=== PATIENT | male | born 1950 | race Caucasian/White ===

== ENCOUNTER 2020-04-30 10:35 | Emergency (ER) | payer MEDICARE, SELFPAY ==
--- NOTE | ~2020-04-30 | CT_ITS ---
EXAMINATION: CT brain wo con DATE: 04/30/2020 11:14 INDICATION: Status post fall TECHNIQUE: Computed tomography (CT) of the head was performed without intravenous contrast. The dose- length product was 681.00 mGy-cm. Automated exposure control and iterative reconstruction technique w ere employed. COMPARISON: CT dated 08/23/2018 FINDINGS: Generalized atrophy. There are scattered mild periventricular and subcortical white matter changes, most likely related to small vessel ischemic disease (microangiopathy). No acute intracrania l hemorrhage, infarction, mass or mass effect. No ventriculomegaly or midline shift. There is intracr anial atherosclerosis. Paranasal sinuses and mastoids are pneumatized. No depressed skull fractures. IMPRESSION: 1. No acute intracranial abnormality. Reviewed, dictated and finalized at location B.
--- NOTE | ~2020-04-30 | CT_ITS ---
EXAMINATION: CT cervical spine wo con EXAM DATE: 04/30/2020 11:15 INDICATION: Head injury. TECHNIQUE: Spiral CT of the cervical spine was performed without contrast. Axial images were reviewe d. Coronal and sagittal reformatted images were also reviewed. The dose-length product (DLP) for thi s examination was 681.00 mGy-cm. The exposure was tailored according to patient size (auto mA exposu re control), and iterative reconstruction (ASIR) was used as additional dose reduction technique. Th ere is no prior study for comparison. This small bouts of L3 FINDINGS: There is no evidence of acute cervical fracture. The odontoid process is intact. Pre-dens space is normal. Prevertebral soft tissue is normal. There are no soft tissue abnormalities identi fied. There is no disc space widening or traumatic vertebral body subluxation suspected. There is m oderate to severe bilateral neural foraminal stenosis at C6-7, the most narrowed level. Overall moder ate cervical spondylosis. Left thyroid nodule likely taking up most of the volume of this lobe, measu ring about 3 cm. A detailed level by level evaluation of spondylosis can be added as addendum if requ ested. IMPRESSION: 1. No acute cervical fracture. 2. Cervical spondylosis most advanced at C6-7. 3. Incidental left thyroid lobe nodule; consider nonemergent ultrasound for risk stratification. Reviewed, dictated and finalized at location A. IMPRESSION: 1. No acute cervical fracture. 2. Cervical spondylosis most advanced at C6-7. 3. Incidental left thyroid lobe nodule; consider nonemergent ultrasound for ri sk stratification.
[2020-04-30 10:36] VITALS: BP 148/75; PULSE 76; RESP 17; TEMP 36.7; O2SAT 100
--- NOTE | 2020-04-30 10:37 | ED.HEATRA ---
HPI - Head Injury General Chief complaint: Head Injury Stated complaint: FALL Time Seen by Provider: 04/30/20 10:37 History of Present Illness HPI Narrative: He went to get something out of the refrigerator this morning and he fell out of his wheelchair. He does not believe that he passed out. He struck his head on the ground. He has some pain in the right side of the neck. He reports multiple recent falls. Related Data Allergies Allergy/AdvReac Type Severity Reaction Status Date / Time aspirin Allergy Unknown Verified 09/09/10 13:23 Influenza Virus Vaccines Allergy Unknown Verified 07/14/15 16:46 latex Allergy Unknown Verified 07/14/15 16:46 monosodium glutamate Allergy Unknown Verified 07/14/15 16:46 ALLERGY INJECTIONS Allergy Mild ANAPHALIXIS Uncoded 04/13/09 11:20 Grass Allergy Unknown Uncoded 08/23/18 16:28 Review of Systems Review of Systems: All systems reviewed & are unremarkable except as noted in HPI and below Constitutional: Constitutional: Denies fever(s) and Denies weakness Cardiovascular: Cardiovascular: Denies chest pain Respiratory: Respiratory: Denies dyspnea Gastrointestinal: Gastrointestinal: Denies abdominal pain, Denies nausea and Denies vomiting Neurologic: Denies headache(s) and Denies weakness PMFSH Family History Family History Father Acute myocardial infarction Social History Social History Smoking status: Former smoker Alcohol intake: current Exam Const: General: no acute distress, alert and ill appearing chronically Orientation/consciousness: patient oriented x3 HENMT: Other: abrasion to right scalp Eyes: Pupils: Equal, round and reactive pupils present EOM: EOMs intact bilaterally Neck: Neck: normal visual inspection Chest: Chest palpation & inspection: normal inspection of the chest and no tenderness Resp: Effort & Inspection: normal respiratory effort Auscultation: clear to auscultation bilaterally Cardio: Rate: regular rate Rhythm: regular rhythm GI: GI Palp: Yes Soft to palpation and No Tenderness to palpation present (GI) Skin: General skin exam: pallor Neuro: General: patient oriented x3 and moves all extremities Cranial nerves: Yes CN's II-XII intact bilaterally Speech: normal speech Extrem: General: normal to inspection Course Vital Signs Vital signs: Vital Signs Temperature 36.7 C 04/30/20 10:36 Pulse Rate 76 04/30/20 10:36 Respiratory Rate 17 04/30/20 10:36 Blood Pressure 148/75 H 04/30/20 10:36 Pulse Oximetry 100 04/30/20 10:36 Temperature 36.7 C 04/30/20 10:36 Pulse Rate 72 04/30/20 17:01 Respiratory Rate 18 04/30/20 17:01 Blood Pressure 167/90 H 04/30/20 17:01 Pulse Oximetry 97 04/30/20 17:01 MDM - Head Injury MDM Narrative Medical decision making narrative: Imaging negative. Glucose 460. He reports that this is normal for him. He used to take insulin, but does not take it any more. Medical Records Attestation: I reviewed the patient's medical records. Lab Data Attestation: I reviewed the patient's lab results. Result diagrams: 04/30/20 11:27 04/30/20 11:27 Labs: Lab Results 04/30/20 04/30/20 04/30/20 Range/Units 11:27 11:27 11:36 WBC 8.4 (4.5-10.0) K/mm3 RBC 5.31 (4.6-6.20) M/mm3 Hgb 13.9 L (14.0-18.0) g/dL Hct 43.4 (42.0-52.0) % MCV 81.7 (80-100) fl MCH 26.2 (26-34) pg MCHC 32.0 (32-36) g/dl RDW 13.6 (11.5-14.5) % Plt Count 148 L (150-375) k/mm3 MPV 11.5 H (7.4-10.4) fl Immature Gran % (Auto) 0.5 (0-0.5) % Neut % (Auto) 75.8 H (45.5-73.1) % Lymph % (Auto) 12.6 L (18.3-44.2) % [place] % (Auto) 7.8 (2.6-8.5) % Eos % (Auto) 2.7 (0-4.4) % Baso % (Auto) 0.6 (0.2-1.2) % Lymph # (Auto) 1.06 (0.9-3.2) K/mm3 [place] # (Auto) 0.7 H (0.1-0.6) K/mm3 Eos # (Auto) 0.2
--- NOTE | 2020-04-30 10:51 | ECG_ITS ---
Measurements Intervals [place] Rate: 82 P: 61 CA: 180 QRS: -39 QRSD: 125 T: 32 QT: 355 QTc: 417 Interpretive Statements SINUS RHYTHM LEFT AXIS DEVIATION INTRAVENTRICULAR CONDUCTION DELAY CANNOT RULE OUT SEPTAL INFARCT, AGE INDETERMINATE BORDERLINE ST-T WAVE ABNORMALITY- INF/LAT LEADS BASELINE ARTIFACT- V6 ABNORMAL ECG Electronically Signed On 04-30-2020 12:08:27 CDT by nOur Toussaint D.O.
[2020-04-30 11:36] LABS: Basophils Absolute Auto 0.1 K/mm3 (0.0-0.1); Basophils Percent Auto 0.6 % (0.2-1.2); Eosinophils Absolute Auto 0.2 K/mm3 (0-0.3); Eosinophils Percent Auto 2.7 % (0-4.4); Hematocrit 43.4 % (42.0-52.0); Hemoglobin 13.9 g/dL (14.0-18.0); Immature Granulocyte Absolute 0.04 K/mm3 (0.00-0.031); Immature Granulocyte Percent A 0.5 % (0-0.5); Lymphocytes Absolute Auto 1.06 K/mm3 (0.9-3.2); Lymphocytes Percent Auto 12.6 % (18.3-44.2); Mean Corpuscular Hemoglobin 26.2 pg (26-34); Mean Corpuscular Volume 81.7 fl (80-100); Mean Platelet Volume 11.5 fl (7.4-10.4); Monocytes Absolute Auto 0.7 K/mm3 (0.1-0.6); Monocytes Percent Auto 7.8 % (2.6-8.5); Neutrophils Absolute Auto 6.4 K/mm3 (1.3-6.7); Neutrophils Percent Auto 75.8 % (45.5-73.1); Platelet Count Result 148 k/mm3 (150-375); Red Blood Count 5.31 M/mm3 (4.6-6.20); Red Cell Distribution Width 13.6 % (11.5-14.5); White Blood Count 8.4 K/mm3 (4.5-10.0)
[2020-04-30 11:40] VITALS: BP 151/76; PULSE 77; RESP 22; O2SAT 99
[2020-04-30 11:47] LABS: Alanine Aminotransferase 17 U/L (4-50); Albumin Level 4.2 g/dL (3.5-5.1); Alkaline Phosphatase 107 U/L (38-126); Anion Gap 12 mmol/L (8-16); Aspartate Amino Transferase 16 U/L (17-59); Bilirubin,Total 0.3 mg/dL (0.2-1.3); Blood Urea Nitrogen 10 mg/dL (9-20); Carbon Dioxide 27 mmol/L (22-30); Chloride 93 mmol/L (98-107); Estimated CRCL calculation 91 ml/min; Estimated Glomerular Filt Rate > 60; Glucose 460 mg/dL (75-110); Magnesium 1.5 mg/dL (1.6-2.3); Potassium 4.5 mmol/L (3.4-5.0); Sodium 132 mmol/L (137-145)
[2020-04-30 11:55] LABS: Add Urine Microscopic? YES; Appearance Urine Clear (Clear); Bilirubin Urine Negative (Negative); Blood Urine Negative (Negative); Color Urine Straw (Yellow); Glucose Urine UA 3+ mg/dL (Negative); Ketones Urine Negative (Negative); Leukocyte Esterase Ur 1+ LEU/UL (Negative); Nitrate Urine Negative (Negative); Protein Urine Negative (Negative); RBC Urine 0-2 /hpf (0-2); Specific Grav Ur 1.028 (1.001-1.035); Urobilinogen Urine Negative mg/dL (<2.0); WBC Urine 51-75 /hpf
[2020-04-30 12:20] VITALS: BP 138/79; PULSE 78; RESP 30; O2SAT 93
[2020-04-30] MEDS: SODIUM CHLORIDE 0.9% IV 1,000 ML 999 ML IV CONT (12:21)
[2020-04-30] MEDS: MAGNESIUM SULF 2 GM/WATER 50ML 2 GM/50 ML BAG IVPB (12:43)
[2020-04-30 13:27] VITALS: BP 137/71; PULSE 76; RESP 24; O2SAT 95
[2020-04-30 14:25] LABS: Glucose Point of Care 400 (65-105)
[2020-04-30 15:14] VITALS: BP 150/89; PULSE 75; RESP 20; O2SAT 98
--- NOTE | 2020-04-30 16:31 | PC.NURSE ---
Report called to Cori Moser RN. Patient waiting for transport at this time.
[2020-04-30 17:01] VITALS: BP 167/90; PULSE 72; RESP 18; O2SAT 97
== END 2020-04-30 17:07 ==
PROVIDERS: Emergency Provider Emergency Medicine; PCP Internal Medicine
DX: E11.65 Type 2 diabetes mellitus with hyperglycemia (principal); S09.90XA Unspecified injury of head, initial encounter; W05.0XXA Fall from non-moving wheelchair, initial encounter; N39.0 Urinary tract infection, site not specified; R94.31 Abnormal electrocardiogram [ECG] [EKG]; Z87.891 Personal history of nicotine dependence
CPT/HCPCS: 36415; 70450; 72125; 80053; 81001; 82948; 83735; 85025; 87077; 87086; 87088; 87186; 93005; 96365; 96367; 99284; J0696; J3475; J7030

== ENCOUNTER 2021-05-16 06:18 | Emergency (ER) | payer SELFPAY ==
--- NOTE | ~2021-05-16 | CT_ITS ---
EXAMINATION: CT abdomen pelvis w con DATE: 05/16/2021 08:49 INDICATION: Abdominal pain TECHNIQUE: Computed tomography (CT) of the abdomen and pelvis was performed with 100 cc Omnipaque 350 intravenous contrast. The dose-length product was 1265.36 mGy-cm. Automated exposure control and ite rative reconstruction technique were employed. COMPARISON: None. FINDINGS: Lung bases are unremarkable. Heart size normal. No significant pleural or pericardial effus ion. Mild thickening of the left colon, suspicious for colitis. No obstruction. The liver, spleen, pancreas, adrenal glands are unremarkable. There are bilateral renal cysts, larges t in the right kidney measuring 5 cm. Gallbladder is present. No free air or free fluid. There are castellanos rgical changes in the right mid abdomen consistent with bowel resection. No acute osseous abnormality . IMPRESSION: 1. Mild thickening of the left colon, suspicious for colitis. No obstruction. Reviewed, dictated and finalized at location A.
[2021-05-16 06:19] VITALS: PULSE 71; RESP 18; TEMP 36.7; O2SAT 97
--- NOTE | 2021-05-16 06:27 | PC.NURSE ---
Patient states he did also have a sz approx 4 hours ago, has history of them.
[2021-05-16 06:54] LABS: Basophils Absolute Auto 0.1 K/mm3 (0.0-0.1); Basophils Percent Auto 0.7 % (0.2-1.2); Eosinophils Absolute Auto 0.1 K/mm3 (0-0.3); Eosinophils Percent Auto 1.2 % (0-4.4); Hematocrit 44.5 % (42.0-52.0); Hemoglobin 14.6 g/dL (14.0-18.0); Immature Granulocyte Absolute 0.03 K/mm3 (0.00-0.031); Immature Granulocyte Percent A 0.4 % (0-0.5); Lymphocytes Absolute Auto 1.06 K/mm3 (0.9-3.2); Lymphocytes Percent Auto 12.6 % (18.3-44.2); Mean Corpuscular HGB Conc 32.8 g/dl (32-36); Mean Corpuscular Hemoglobin 26.3 pg (26-34); Mean Corpuscular Volume 80.2 fl (80-100); Mean Platelet Volume 10.3 fl (7.4-10.4); Monocytes Absolute Auto 0.6 K/mm3 (0.1-0.6); Neutrophils Absolute Auto 6.6 K/mm3 (1.3-6.7); Neutrophils Percent Auto 78.1 % (45.5-73.1); Platelet Count Result 146 k/mm3 (150-375); Red Blood Count 5.55 M/mm3 (4.6-6.20); White Blood Count 8.4 K/mm3 (4.5-10.0)
[2021-05-16 07:00] VITALS: BP 164/82; PULSE 80; RESP 16; O2SAT 98
[2021-05-16 07:04] LABS: Alanine Aminotransferase 19 U/L (4-50); Albumin Level 4.6 g/dL (3.5-5.1); Alkaline Phosphatase 98 U/L (38-126); Anion Gap 8 mmol/L (8-16); Aspartate Amino Transferase 19 U/L (17-59); Bilirubin,Total 0.5 mg/dL (0.2-1.3); Blood Urea Nitrogen 7 mg/dL (9-20); Calcium 9.3 mg/dL (8.4-10.2); Carbon Dioxide 27 mmol/L (22-30); Chloride 104 mmol/L (98-107); Estimated CRCL calculation 100 ml/min; Estimated Glomerular Filt Rate > 60; Glucose 310 mg/dL (65-110); Lipase 170 U/L (23-300); Potassium 4.1 mmol/L (3.4-5.0); Sodium 139 mmol/L (137-145)
[2021-05-16 07:06] LABS: Add Urine Microscopic? YES; Appearance Urine Clear (Clear); Bilirubin Urine Negative (Negative); Blood Urine Negative (Negative); Color Urine Yellow (Yellow); Glucose Urine UA 3+ mg/dL (Negative); Ketones Urine 1+ mg/dL (Negative); Leukocyte Esterase Ur Negative LEU/UL (Negative); Nitrate Urine Negative (Negative); Protein Urine 1+ mg/dL (Negative); RBC Urine 0-2 /hpf (0-2); Specific Grav Ur 1.013 (1.001-1.035); Urobilinogen Urine Negative mg/dL (<2.0)
--- NOTE | 2021-05-16 07:51 | ED.GENADULT ---
HPI - General Adult General Chief complaint: Abdominal Pain Stated complaint: sick case/ not taking meds/ abd pain Time Seen by Provider: 05/16/21 07:03 Source: patient History of Present Illness HPI narrative: Patient is a 71 y/o male complaining of generalized abdominal pain and vomiting. He states that this started 3 days ago. He describes his pain as aching and rates it as 7/10. There is no pain radiation. He states that the his nurse practitioner would not refill his Xanax and he has been off Xanax for 3 days. He also wants other medications including seizure medication, BP medications refilled. Related Data Home Medications Medication Instructions Recorded Confirmed Flonase 05/16/21 Imodium 05/16/21 albuterol sulfate INHALATION 05/16/21 alprazolam 05/16/21 atorvastatin 05/16/21 clopidogrel 05/16/21 desoximetasone applic TOPICAL 05/16/21 docusate sodium PO 05/16/21 duloxetine mg 05/16/21 duloxetine [Cymbalta] mg PO 05/16/21 esomeprazole magnesium mg 05/16/21 gabapentin 05/16/21 levetiracetam PO 05/16/21 metoprolol succinate PO 05/16/21 quetiapine 05/16/21 sitagliptin-metformin [Janumet] tablet 05/16/21 tamsulosin mg PO 05/16/21 tramadol mg 05/16/21 Allergies Allergy/AdvReac Type Severity Reaction Status Date / Time No Known Allergies Allergy Verified 05/16/21 06:26 Review of Systems Constitutional: Constitutional: Denies chills, Denies fever(s), Denies headache(s) and Denies weakness Eyes: Eyes: Denies blurry vision ENT: Denies headache(s) and Denies neck pain Cardiovascular: Cardiovascular: Denies chest pain and Denies dyspnea Respiratory: Respiratory: Denies cough and Denies dyspnea Gastrointestinal: Gastrointestinal: Reports abdominal pain, Denies diarrhea, Reports nausea and Reports vomiting Genitourinary: Genitourinary: Denies hematuria and Denies dysuria Musculoskeletal: Musculoskeletal: Denies back pain and Denies neck pain Neurologic: Denies headache(s) and Denies weakness Exam Const: General: no acute distress and well developed Orientation/consciousness: oriented to person, oriented to place, oriented to time and patient oriented x3 HENMT: Head: normocephalic Ears: external ears normal General nose exam: Normal external nose present Eyes: General: appearance normal, both eyes and all related structures Conjunctivae: conjunctivae normal Neck: Neck: normal visual inspection and full ROM Chest: Chest palpation & inspection: normal inspection of the chest and no tenderness Resp: Effort & Inspection: normal respiratory effort Auscultation: clear to auscultation bilaterally Cardio: Rate: regular rate Rhythm: regular rhythm GI: GI Palp: No abdominal tenderness and Yes Soft to palpation Skin: General skin exam: normal color and turgor normal Neuro: General: oriented to person, oriented to place, oriented to time and patient oriented x3 Cognition (Neuro): normal cognition Extrem: General: normal to inspection, full ROM and no pedal edema Psych: Appearance: grossly normal Mental Status: mental status grossly normal Affect: normal affect Course Reevaluation(s) Reevaluation #1: Discussed with patient about lab and CT results. Informed patient that short course of refill will be given for most of his meds. However, Xanax will be not be refilled. Date: 05/16/21 Time: 10:15 Vital Signs Vital signs: Vital Signs Temperature 36.7 C 05/16/21 06:19 Pulse Rate 71 05/16/21 06:19 Respiratory Rate 18 05/16/21 06:19 Pulse Oximetry 97 05/16/21 06:19 Temperature 36.7 C 05/16/21 06:19 Pulse Rate 100 05/16/21 10:15 Respiratory Rate 20 05/16/21 10:15 Blood Pressure 145/90 H 05/16/21 10:15 Pulse Oximetry 97 05/16/21 10:15 Medical Decision Making Vital Signs Vital Signs: Vital Signs Temperature 36.7 C 05/16/21 06:19 Pulse Rate 71 05/16/21 06:19 Respiratory Rate 18 05/16/21 06:19 Pulse Oximetry 97 05/16/21 06:19
[2021-05-16 08:00] VITALS: BP 142/99; PULSE 93; RESP 16; O2SAT 98
[2021-05-16 09:30] VITALS: BP 146/97; PULSE 88; RESP 16; O2SAT 97
[2021-05-16 10:15] VITALS: BP 145/90; PULSE 100; RESP 20; O2SAT 97
[2021-05-16 10:40] VITALS: BP 140/72; PULSE 70; RESP 16; O2SAT 98
--- NOTE | 2021-05-16 10:56 | PC.NURSE ---
ATTEMPTED TO CALL [facility] TO TRY TO FACILITATE TRANSPORTATION FOR RIDE BACK TO FACILITY. NO ANSWER AND MAILBOX IS FULL. PT STATES HE HAS NO FAMILY AND NO FRIENDS TO PICK HIM UP TO GET HOME. I INFORMED THE PT THAT HE DOESN'T QUALIFY FOR A RIDE BY AMBULANCE BACK TO THE FACILITY AND HE STATES IT DOESN'T MATTER BECAUSE MY INSURANCE ALWAYS PAYS FOR IT.
== END 2021-05-16 12:20 ==
PROVIDERS: Emergency Medicine; Emergency Provider Emergency Medicine
DX: K52.9 Noninfective gastroenteritis and colitis, unspecified (principal); I10 Essential (primary) hypertension; Z79.84 Long term (current) use of oral hypoglycemic drugs; R56.9 Unspecified convulsions
CPT/HCPCS: 36415; 74177; 80053; 81001; 83690; 85025; 99284; Q9967

== ENCOUNTER 2021-05-24 09:14 | Outpatient (CLI) | payer MEDICARE, SELFPAY ==
[2021-05-24 09:47] LABS: Cholesterol 74 mg/dL (0-200); HDL Direct 31 mg/dL; Triglycerides 243 mg/dL (<150)
[2021-05-24 10:05] LABS: LDL Cholesterol Direct < 30 mg/dL
[2021-05-24 10:09] LABS: Hemoglobin A1C 10.5 % (<5.7)
== END 2021-05-24 09:15 | disposition home or self-care (01) ==
PROVIDERS: PCP Nurse Practitioner; Visit Provider Nurse Practitioner
DX: E11.9 Type 2 diabetes mellitus without complications (principal); E78.5 Hyperlipidemia, unspecified
CPT/HCPCS: 36415; 80061; 83036

== ENCOUNTER 2021-05-26 21:57 | Observation (INO) | payer MEDICARE, SELFPAY ==
--- NOTE | ~2021-05-26 | XR_ITS ---
EXAMINATION: XR chest 1V portable DATE: 05/26/2021 22:48 INDICATION: Cough and fever. TECHNIQUE: A single frontal view of the chest was obtained on 2 radiographs. COMPARISON: Chest 2 views 10/11/2018, CT abdomen and pelvis 05/16/21 FINDINGS: The chest demonstrates clear lungs without pneumonia, pleural effusion, or pneumothorax. Th e heart size is normal. IMPRESSION: 1. No acute cardiopulmonary disease. Reviewed, dictated and finalized at location A.
--- NOTE | ~2021-05-26 | CT_ITS ---
EXAMINATION: CT abdomen pelvis w con DATE: 05/27/2021 02:29 INDICATION: Abdominal pain TECHNIQUE: Computed tomography (CT) of the abdomen and pelvis was performed with 100 mL Omnipaque-350 intravenous contrast. Automated exposure control and iterative reconstruction technique were employe d. The dose-length product was 1620.10 mGy-cm. COMPARISON: 05/16/2021 FINDINGS: Minimal bibasilar dependent atelectasis. Heart size is normal. No pericardial or pleural effusion. Sm all sliding-type hiatal hernia. Liver, gallbladder, pancreas and bilateral adrenal glands are normal. Bilateral renal cysts, the largest measuring 5.2 cm the lower pole of the right kidney. Nonspecific mild splenomegaly measuring 14.4 cm maximal length. Likely prior appendectomy with suture line at the tip of the cecum. Moderate amount of stool scattered throughout the colon. Small bowel is normal wit h no obstruction. Mild prostatomegaly measuring 4.3 x 4.0 cm. Small bilateral fat-containing inguinal hernias. Tiny fat-containing umbilical hernia. No free intraperitoneal gas or fluid. No pathological ly enlarged abdominal or pelvic lymphadenopathy. 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 Mild to modera te scattered degenerative skeletal changes. Densely sclerotic bone islands at L1 and L5.. No other castellanos spicious lytic or blastic bone lesions. IMPRESSION: 1. No acute intra-abdominal/pelvic process. 2. Nonspecific mild splenomegaly. 3. Small sliding-type hiatal hernia. 4. 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 Reviewed, dictated and finalized at location A.
--- NOTE | ~2021-05-26 | CT_ITS ---
EXAMINATION: CT brain wo con DATE: 05/27/2021 02:28 INDICATION: Mental status changes TECHNIQUE: Computed tomography (CT) of the head was performed without intravenous contrast. The mA wa s adjusted according to patient size. Iterative reconstruction technique was employed. Exam dose: 60 5.33 mGy-cm total exam DLP. COMPARISON: 04/30/2020 CT brain FINDINGS: No intracranial mass lesion or hemorrhage or cerebrovascular accident. No midline shift or mass effect. Bilateral carotid siphon internal carotid artery calcifications. Nonspecific diminished attenuation of the cerebral white matter, likely due to chronic small vessel ischemic changes. There is mild/moderate cerebral and cerebellar volume loss. No subdural or epidural hematoma is detected. No fracture or bone destruction of the cranial vault. Included paranasal sinuses and mastoid air cell s are unremarkable. IMPRESSION: No acute intracranial abnormality Cerebral atherosclerosis and chronic small vessel ischemic changes of cerebral white matter Reviewed, dictated and finalized at Location A. Reviewed, dictated and finalized at location B.
[2021-05-26 22:06] VITALS: BP 120/73; PULSE 81; RESP 20; TEMP 36; O2SAT 97
[2021-05-26 22:07] VITALS: BP 120/73; PULSE 82; RESP 20; O2SAT 97
[2021-05-26 22:15] VITALS: BP 128/63; PULSE 81; RESP 17; O2SAT 96
--- NOTE | 2021-05-26 22:31 | ECG_ITS ---
Measurements Intervals [place] Rate: 80 P: 59 UT: 179 QRS: -39 QRSD: 139 T: 78 QT: 368 QTc: 424 Interpretive Statements SINUS RHYTHM LEFT AXIS DEVIATION INTRAVENTRICULAR CONDUCTION DELAY CANNOT RULE OUT SEPTAL INFARCT, AGE INDETERMINATE BORDERLINE ST-T WAVE ABNORMALITY- HIGH LATERAL LEADS BASELINE ARTIFACT- V1-V6 ABNORMAL ECG Electronically Signed On 05-27-2021 6:29:37 CDT by Onur Toussaint D.O.
[2021-05-26 23:01] VITALS: BP 136/75; PULSE 77; RESP 18; O2SAT 98
[2021-05-26 23:04] LABS: Alveolar/Arterial O2 Gradient 23.3 mmHg; Base Excess ABG -1.6 mEq/l (+/-2.0); Fractional Inspired Oxygen 21 %; HCO3 ABG 23.9 mEq/l (22.0-26.0); Oxygen Saturation ABG 94.5 % (95.0-100.0); Oxyhemoglobin 92.6 % THb (90.0-100.0); PCO2 ABG 43.2 mmHg (35.0-45.0); PO2 ABG 74.7 mmHg (80.0-100.0); PO2 FiO2 Ratio Arterial Blood 3.56 %; Total Hemoglobin 13.8 g/dL (12.0-18.0); pH ABG 7.361 (7.350-7.450)
[2021-05-26 23:06] LABS: Device ROOM AIR; Modified Allen's Test Pass; Site Drawn LEFT RADIAL
[2021-05-26 23:16] VITALS: BP 139/75; PULSE 74; RESP 21; O2SAT 97
--- NOTE | 2021-05-26 23:21 | ED.GENADULT ---
HPI - General Adult General Chief complaint: Altered Mental Status Stated complaint: POSSIBLE OVERDOSE - LOCAL RESIDENTIAL UNKNOWN MED Time Seen by Provider: 05/26/21 22:19 History of Present Illness HPI narrative: Patient 71-year-old gentleman who presents the emergency department with chief complaint of altered mental status. Patient was found at his assisted living facility confused and unable to answer questions there is a potential the patient may have gotten into his medications and take them either additional all tramadol or benzodiazepines. Patient was given Narcan by EMS prior to arrival and the patient is somewhat more awake now. Patient is able to answer some basic questions but history is limited due to the patient being drowsy. Related Data Home Medications Medication Instructions Recorded Confirmed Flonase 05/16/21 Imodium 05/16/21 desoximetasone applic TOPICAL 05/16/21 docusate sodium PO 05/16/21 tramadol mg 05/16/21 metronidazole 500 mg tablet 500 mg PO Q12H 05/19/21 05/19/21 Allergies Allergy/AdvReac Type Severity Reaction Status Date / Time aspirin Allergy Unknown Verified 05/24/21 09:14 Influenza Virus Vaccines Allergy Unknown Verified 05/24/21 09:14 latex Allergy Unknown Verified 05/24/21 09:14 monosodium glutamate Allergy Unknown Verified 05/24/21 09:14 ALLERGY INJECTIONS Allergy Mild ANAPHALIXIS Uncoded 05/24/21 09:14 Grass Allergy Unknown Uncoded 05/24/21 09:14 Review of Systems Review of Systems: A 10 system review of systems was completed on the patient and is negative except for what is stated in the HPI. Nursing and ancillary documentation was reviewed. [facility]LY [facility] Past Medical History Medical History Allergies Anxiety Arthritis Asthma Cancer Chest pain Colitis Coronary artery disease Diabetes Difficulty breathing Difficulty sleeping Dizziness Fainting spell GERD (gastroesophageal reflux disease) Head trauma Headache Heart attack Heart disease High blood sugar High cholesterol Hypertension IBS (irritable bowel syndrome) Leg pain Loss of consciousness Numbness Painful joint Rash Sadness Seizures Sexual dysfunction Swollen joint Urine abnormality Vomiting Weakness Family History Family History Father Acute myocardial infarction Social History Social History Smoking status: Former smoker Second hand tobacco smoke exposure: No Alcohol intake: current Drinks per week: 1 Substance use: never Substance use type: does not use Exam Narrative: GENERAL: Well-appearing, well-nourished, and in no acute distress. HEAD: Normocephalic, atraumatic. EYES: PERRLA and EOMI. ENT: Nares clear, no rhinorrhea or epistaxis. Mucous membranes moist. NECK: Supple. CHEST: Clear to auscultation. No respiratory distress. HEART: Regular rate and rhythm. No murmur heard. Normal peripheral pulses. ABDOMEN: Soft, nontender, nondistended, normal active bowel sounds. EXTREMITIES: Normal range of motion. No edema. SKIN: Warm, dry, no rash. NEURO: No focal deficits. Alert and oriented x3. Very sedated PSYCH: Normal mood and affect. Course Vital Signs Vital signs: Vital Signs Temperature 36.0 C L 05/26/21 22:06 Pulse Rate 81 05/26/21 22:06 Respiratory Rate 20 05/26/21 22:06 Blood Pressure 120/73 05/26/21 22:06 Pulse Oximetry 97 05/26/21 22:06 Temperature 36.0 C L 05/26/21 22:06 Pulse Rate 66 05/27/21 04:16 Respiratory Rate 16 05/27/21 04:16 Blood Pressure 149/78 H 05/27/21 04:16 Pulse Oximetry 98 05/27/21 04:16 Medical Decision Making Vital Signs Vital Signs: Vital Signs Temperature 36.0 C L 05/26/21 22:06 Pulse Rate 81 05/26/21 22:06 Respiratory Rate 20 05/26/21 22:06 Blood Pressure 120/73 05/26/21 22:06 Pulse Oximetry 9
[2021-05-26 23:25] LABS: Basophils Absolute Auto 0.1 K/mm3 (0.0-0.1); Basophils Percent Auto 0.8 % (0.2-1.2); Eosinophils Absolute Auto 0.4 K/mm3 (0-0.3); Hematocrit 41.2 % (42.0-52.0); Hemoglobin 13.1 g/dL (14.0-18.0); Immature Granulocyte Absolute 0.04 K/mm3 (0.00-0.031); Immature Granulocyte Percent A 0.4 % (0-0.5); Lymphocytes Absolute Auto 1.92 K/mm3 (0.9-3.2); Lymphocytes Percent Auto 21.1 % (18.3-44.2); Mean Corpuscular HGB Conc 31.8 g/dl (32-36); Mean Corpuscular Hemoglobin 26.4 pg (26-34); Mean Corpuscular Volume 82.9 fl (80-100); Mean Platelet Volume 10.8 fl (7.4-10.4); Monocytes Absolute Auto 0.8 K/mm3 (0.1-0.6); Monocytes Percent Auto 8.7 % (2.6-8.5); Neutrophils Absolute Auto 5.9 K/mm3 (1.3-6.7); Platelet Count Result 147 k/mm3 (150-375); Red Blood Count 4.97 M/mm3 (4.6-6.20); Red Cell Distribution Width 14.2 % (11.5-14.5); White Blood Count 9.1 K/mm3 (4.5-10.0)
[2021-05-26 23:31] VITALS: BP 127/72; PULSE 71; RESP 14; O2SAT 95
[2021-05-26 23:33] LABS: Add Urine Microscopic? YES; Appearance Urine Clear (Clear); Bilirubin Urine Negative (Negative); Blood Urine Negative (Negative); Color Urine Straw (Yellow); Glucose Urine UA 3+ mg/dL (Negative); Ketones Urine Negative (Negative); Leukocyte Esterase Ur Negative LEU/UL (Negative); Nitrate Urine Negative (Negative); Protein Urine Negative (Negative); RBC Urine 0-2 /hpf (0-2); Urobilinogen Urine Negative mg/dL (<2.0); WBC Urine 0-3 /hpf
[2021-05-26 23:34] LABS: Acetaminophen < 10 ug/mL (10-30); Ammonia < 9 umol/L (9-30); Ethanol < 10 mg/dL (<10); Salicylate < 1.0 mg/dL (2-20)
[2021-05-26 23:35] LABS: Partial Thromboplastin Time 26.7 SECONDS (22.3-36.8); Prothrombin Time 12.9 Seconds (11.1-14.7)
[2021-05-26 23:36] LABS: Alanine Aminotransferase 22 U/L (4-50); Albumin Level 4.1 g/dL (3.5-5.1); Alkaline Phosphatase 88 U/L (38-126); Anion Gap 10 mmol/L (8-16); Aspartate Amino Transferase 24 U/L (17-59); Bilirubin,Total < 0.1 mg/dL (0.2-1.3); Blood Urea Nitrogen 11 mg/dL (9-20); Calcium 9.3 mg/dL (8.4-10.2); Carbon Dioxide 26 mmol/L (22-30); Chloride 100 mmol/L (98-107); Estimated Glomerular Filt Rate > 60; Glucose 299 mg/dL (65-110); Magnesium 1.6 mg/dL (1.6-2.3); Potassium 4.1 mmol/L (3.4-5.0); Sodium 136 mmol/L (137-145)
[2021-05-26 23:47] LABS: Troponin I < 0.012 ng/mL (0.000-0.034)
[2021-05-26 23:51] LABS: Specific Grav Ur 1.003 (1.001-1.035)
[2021-05-26 23:54] LABS: Barbiturate Screen Urine Negative (Negative); Benzodiazepines Screen Urine Positive (Negative)
[2021-05-26 23:56] LABS: Amphetamine Screen Urine Negative (Negative); Cannabinoid Screen Urine Negative (Negative); Methadone Screen Urine Negative (Negative); Opiate Screen Urine Negative (Negative); Phencyclidine Screen Urine Negative (Negative)
[2021-05-27] VITALS (13 sets, daily range): BP systolic 122–149; BP diastolic 67–84; PULSE 64–77; RESP 13–21; TEMP 36.3–36.7; O2SAT 93–99; BMI 30.2
--- NOTE | 2021-05-27 09:24 | PM.IMHP ---
H&P: HPI History of Present Illness Date/Time: 05/27/21 09:24 PATIENT HAS BEEN ADMITTED UNDER OBSERVATION STATUS Chief Complaint: Altered mental status Narrative: 71yo man with history bipolar disorder, diabetes and seizures was brought into ED with complaints of altered mental status. Patient states he sprinkled the ashes of his on her sister's grave. He returned home to the assisted living facility. He took 1 alprazolam 10 mg tablet around 5:00 p.m.. He does not take this regularly and his last dose was 2 months ago. He did have a headache earlier in the day but denies any other symptoms such as shortness of breath, chest pain, dizziness, lightheadedness, nausea, vomiting. He did have diarrhea but not uncommon due to his irritable bowel. His bowel does alternate between diarrhea and constipation. There has there has been no new medications. He denies taking excessive amounts of the alprazolam or any other medication. He checks his glucose twice a day and he normally runs high 100s in the morning and low 200s in the evening. No hypoglycemia symptoms. Patient was difficult to arouse at the facility. He was noted to be confused and unable to answer questions. Patient states he dispenses his own medications. Patient was given Narcan by EMS and became somewhat more awake. He was brought to the emergency room for evaluation. In the emergency room, he was hemodynamically stable. CT of the brain showed no acute findings. Labwork was unrevealing. Urine was clear. Troponin was negative. TSH was normal. Urine drug screen was positive for benzodiazepines but negative for salicylates, acetaminophen or alcohol. ABG was normal. Patient was admitted for observation. Review of systems was unrevealing. He denies any suicidal or homicidal ideation. He denies feeling achy or with myalgias. Review of Systems Review of Systems: All systems reviewed & are unremarkable except as noted in HPI and below PMFSH Past Medical History Medical History (Updated 05/27/21 @ 15:01 by Cory Cabezas MD) Allergies Anxiety Arthritis Asthma Bipolar disorder with schizoaffective disorder. BPH (benign prostatic hyperplasia) Cancer Colitis Coronary artery disease Hx of [place] and stent to the LAD 2006 Depression Diabetes Essential hypertension GERD (gastroesophageal reflux disease) Hx of gastrointestinal hemorrhage related to angiodysplasia Hyperlipidemia IBS (irritable bowel syndrome) MANA (obstructive sleep apnea) noncompliant with CPAP Seizures Surgical History Surgical History Hx of appendectomy Hx of fracture of ankle Rt ankle ORIF trimalleolar fx Hx of fracture of radius ORIF distal right radial fx Hx of fracture of tibia s/p nail fixation left tibia Family History Family History Father Acute myocardial infarction Social History Social History (Updated 05/27/21 @ 10:27 by Cory Cabezas MD) Social History: Patient resides assisted living facility called [facility] in [place]. He is been at [facility] for about 3 years. Quit tobacco 25 years ago after smoking 1.5 packs per day times 15 years. He drinks 2 scotches per day. He denies drinking more than this. He denies history of or current use of Drug use. DNR per his wishes. He does not have an individual who would make decisions for him if he is unable. Smoking packs per day: 1 Smoking cigarettes per day: 20.0 Years smoked: 15 Smoking pack-years: 15.00 Smoking status: Former smoker Second hand tobacco smoke exposure: No Alcohol intake: former Drinks per week: 1 Substance use: never Substance use type: does not use Spiritual care concerns: No Meds Home Medications and Allergies Home Medications Medication Instructions Recorded Confirmed Type desoximetasone 1 applic TOPICAL AURE
--- NOTE | 2021-05-27 12:58 | PC.NURSE ---
Patient removed floor associate, pulse ox, and blood pressure cuff. Patient is refusing to allow this nurse to replace monitors. Will continue to monitor closely.Dr. Cabezas notified.
[2021-05-27] MEDS: CLOPIDOGREL BISULFATE 75 MG TABLET PO (13:34)
[2021-05-27] MEDS: ATORVASTATIN 40 MG TABLET 80 MG PO (13:34)
[2021-05-27] MEDS: METOPROLOL SUCCINATE EXT REL 25 MG TABCR PO (13:35)
[2021-05-27] MEDS: DULoxetine HCL 60 MG CAPSULE.DR PO (13:35)
[2021-05-27] MEDS: GABAPENTIN 300 MG CAPSULE 600 MG PO (13:35)
[2021-05-27] MEDS: TRIAMCINOLONE ACET 0.1% CREAM 15 GM TUBE 1 APPLIC TOPICAL (13:36)
[2021-05-27] MEDS: levETIRAcetam 500 MG TABLET PO (13:36)
[2021-05-27] MEDS: TAMSULOSIN HCL 0.4 MG CAPSULE PO (13:36)
[2021-05-27 13:59] LABS: Glucose Point of Care 249 mg/dl (65-105)
--- NOTE | 2021-05-27 15:00 | PM.DS ---
DS: Admitting Diagnosis Discharge Date 05/27/21 Admitting Diagnosis Altered mental status DS: Discharge Diagnosis Discharge Diagnosis (1) Benzodiazepine overdose: Code(s): T42.4X1A - Poisoning by benzodiazepines, accidental (unintentional), initial encounter Status: Acute (2) Acute alteration in mental status: Code(s): R41.82 - Altered mental status, unspecified Status: Acute (3) Seizures: Code(s): R56.9 - Unspecified convulsions Status: Acute (4) Diabetes mellitus with hyperglycemia: Code(s): E11.65 - Type 2 diabetes mellitus with hyperglycemia Status: Acute (5) Essential hypertension: Code(s): I10 - Essential (primary) hypertension Status: Inactive (6) Anxiety and depression: Code(s): F41.9 - Anxiety disorder, unspecified; F32.A - Depression, unspecified Status: Acute DS: Summary Hospital Course Reason for hospitalization: 71yo man with history bipolar disorder, diabetes and seizures was brought into ED with complaints of altered mental status. Please see H&P for details Hospital Course: Patient was difficult to arouse at the facility. He was noted to be confused and unable to answer questions. Patient states he dispenses his own medications. Patient was given Narcan by EMS and became somewhat more awake. He was brought to the emergency room for evaluation. In the emergency room, he was hemodynamically stable. CT of the brain showed no acute findings. Lab work was unrevealing. Urine was clear. Troponin negative and EKG showing no acute findings and was very similar to EKG from 1 year ago. TSH was normal. Urine drug screen was positive for benzodiazepines but he was negative for salicylates, acetaminophen or alcohol. ABG was normal. Patient was admitted for observation to the IMU. Review of systems was unrevealing. He denied any suicidal or homicidal ideation. He denied feeling achy or with myalgias. Central seizure less likely. A1c 10.3 and glucose elevated in the 200 range here. Amaryl added. Was able to get in touch with his facility. Was informed that the patient was given Xanax 1mg TID prn #90 recently and only #55 pills left. He denies taking excessive amounts of Xanax. More information provided showing that the patient has anger issues and tore a medicine cabinet off the wall when he became angry about his medications. Crisis did see the patient and they felt he was not a risk to himself or others imminently. Spoke with him about the need to wean off the Xanax. Spoke with PCP and he was up dated as well. We did not have the ability to confiscate his Xanax. The staff at the facility is aware that the pateitn is aggressive. Patient was given a safety contract. He refused the paperwork. Patient was able to be discharged on 05/27/2021 in stable condition. Status at Discharge Cognitive/behavioral status at discharge: Stable Time Spent with Patient Time attestation: Total time spent providing and/or coordinating discharge services: 50 minute Time spent: Greater than 30 minutes Exam Narrative: AF 97.4 131/76 64 17 95% ra Gen - well-nourished, well-developed male in no acute respiratory distress who is nontoxic-appearing lying semi recumbent in bed HEENT - normocephalic. Atraumatic. Pupils equal round and reactive. Extraocular motions intact. Sclera injected bilaterally. Nares patent. Oropharynx was clear. No oral lesions. Moist mucous membranes. Tongue was midline without trauma. Palate bhargav symmetrically. No facial asymmetry. Neck - neck was supple. No dominant adenopathy, thyromegaly or masses. 2+ carotid upstrokes without bruits. Chest - lungs are clear to auscultation bilaterally. No wheezes or crackles. CV - heart was regular rate and rhythm. S1-S2. No murmurs gallops or rubs. Tele showing no significant dysrhythmias Abd - abdomen was soft. Nontender. Nondistended. Positive bowel sounds. No organomegaly or mass
--- NOTE | 2021-05-27 17:57 | PC.NURSE ---
Patient discharged to assisted living. Patient oriented x4 at the time of discharge. No complaints of chest pain or shortness of breath. Discharge instructions discussed with patient, and understanding was acknowledged. Prescriptions were transmitted to pharmacy electronically. Patient was transported home via taxi.
[2021-06-30 15:15] LABS: Reference Lab Test Result None Detected
== END 2021-05-27 17:00 ==
LOC: ANHED 05-27 04:47 → ANHICU 05-27 15:19
PROVIDERS: Admitting Provider Internal Medicine; Emergency Provider Emergency Medicine; PCP Nurse Practitioner; Visit Provider Internal Medicine
DX: T42.4X1A Poisoning by benzodiazepines, accidental (unintentional), initial encounter (principal); R41.82 Altered mental status, unspecified; F31.9 Bipolar disorder, unspecified; E11.65 Type 2 diabetes mellitus with hyperglycemia; F41.8 Other specified anxiety disorders; I10 Essential (primary) hypertension; R56.9 Unspecified convulsions; Z87.891 Personal history of nicotine dependence; Z79.899 Other long term (current) drug therapy
CPT/HCPCS: 36415; 36600; 51701; 70450; 71045; 74177; 80053; 80307; 81001; 82140; 82805; 82948; 83735; 84443; 84484; 85025; 85610; 85730; 93005; 99285; A9270; G0378; Q9967

== ENCOUNTER 2021-09-07 13:56 | Outpatient (CLI) | payer MEDICARE, SELFPAY ==
[2021-09-10 04:58] LABS: Levetiracetam Keppra 11.1 mcg/mL (12.0-46.0)
== END 2021-09-07 13:57 | disposition home or self-care (01) ==
PROVIDERS: PCP Nurse Practitioner; Visit Provider Internal Medicine
DX: R56.9 Unspecified convulsions (principal)
CPT/HCPCS: 36415; 80177

== ENCOUNTER 2022-03-31 12:27 | Emergency (ER) | payer MEDICARE, SELFPAY ==
[2022-03-31 13:04] VITALS: BP 155/78; PULSE 86; RESP 18; TEMP 36.5; O2SAT 98
[2022-03-31 17:26] VITALS: BP 142/81; PULSE 80; RESP 19; O2SAT 97
--- NOTE | 2022-03-31 17:28 | ED.GENADULT ---
HPI - General Adult General Chief complaint: Unspecified <Akua Hernandez PA-C - Last Filed: 03/31/22 18:24> Stated complaint: med refill <Akua Hernandez PA-C - Last Filed: 03/31/22 18:24> Time Seen by Provider: 03/31/22 16:53 <LORRIE Ware Last Filed: 03/31/22 18:24> History of Present Illness HPI narrative: Patient is a 72-year-old male with a history of seizures, depression, acid reflux here for a medicine refill. States he needs refills on Keppra, Nexium and Duloxetine. He is switching primary care providers and has a new patient appointment on April 14 but runs out of his medicines today. He has had no seizures for several years, states it is well controlled on Keppra. His mood is well controlled with duloxetine, he has been on this medicine for several years. Acid reflux symptoms controlled with Nexium. He is asymptomatic today. Last saw PMD 5 months ago. <Akua Hernandez PA-C - Last Filed: 03/31/22 18:24> Related Data Allergies/adverse reactions: Allergies Allergy/AdvReac Type Severity Reaction Status Date / Time aspirin Allergy Unknown unknown Verified 03/31/22 17:26 Influenza Virus Vaccines Allergy Unknown unknown Verified 03/31/22 17:26 latex Allergy Unknown unknown Verified 03/31/22 17:26 monosodium glutamate Allergy Unknown Unknown Verified 03/31/22 17:26 ALLERGY INJECTIONS Allergy Mild ANAPHALIXIS Uncoded 03/31/22 17:26 Grass Allergy Unknown Unknown Uncoded 03/31/22 17:26 <LORRIE Ware Last Filed: 03/31/22 18:24> Review of Systems Review of Systems: Gen.: Denies fevers or chills Eyes: Denies eye pain or visual change ENT: Denies congestion Respiratory: Denies shortness of breath or cough CV: Denies chest pain or palpitations GI: Denies abdominal pain nausea, emesis or diarrhea denies burning, urgency, frequency or hematuria Musculoskeletal: Denies back pain or muscle pain Neuro: Denies numbness, tingling, weakness or focal weakness Skin: Denies rash Except as documented, all other systems reviewed and negative <Akua Hernandez PA-C - Last Filed: 03/31/22 18:24> [facility] Past Medical History Medical History: Medical History Allergies Anxiety Arthritis Asthma Bipolar disorder with schizoaffective disorder. BPH (benign prostatic hyperplasia) Cancer Colitis Coronary artery disease Hx of WA and stent to the LAD 2006 Depression Diabetes Essential hypertension GERD (gastroesophageal reflux disease) Hx of gastrointestinal hemorrhage related to angiodysplasia Hyperlipidemia IBS (irritable bowel syndrome) MANA (obstructive sleep apnea) noncompliant with CPAP Seizures <Akua Hernandez PA-C - Last Filed: 03/31/22 18:24> Surgical History Surgical History: Surgical History Hx of appendectomy Hx of fracture of ankle Rt ankle ORIF trimalleolar fx Hx of fracture of radius ORIF distal right radial fx Hx of fracture of tibia s/p nail fixation left tibia <Akua Hernandez PA-C - Last Filed: 03/31/22 18:24> Family History Family History: Family History Father Acute myocardial infarction <Akua Hernandez PA-C - Last Filed: 03/31/22 18:24> Social History Social History: Social History Social History: Patient resides assisted living facility called [facility] in [place]. He is been at [facility] for about 3 years. Quit tobacco 25 years ago after smoking 1.5 packs per day times 15 years. He drinks 2 scotches per day. He denies drinking more than this. He denies history of or current use of Drug use. DNR per his wishes. He does not have an individual who would make decisions for him if he is unable. Smoking packs per day:
[2022-03-31 18:00] VITALS: PULSE 79; RESP 19; O2SAT 99
== END 2022-03-31 18:00 | disposition home or self-care (01) ==
LOC: ANHED 17:45
PROVIDERS: Emergency Provider Emergency Medicine; PCP Internal Medicine
DX: G40.909 Epilepsy, unspecified, not intractable, without status epilepticus (principal); F41.9 Anxiety disorder, unspecified; F31.9 Bipolar disorder, unspecified; J45.909 Unspecified asthma, uncomplicated; N40.0 Benign prostatic hyperplasia without lower urinary tract symptoms; I25.10 Atherosclerotic heart disease of native coronary artery without angina pectoris; I25.2 Old myocardial infarction; E11.9 Type 2 diabetes mellitus without complications; I10 Essential (primary) hypertension; E78.5 Hyperlipidemia, unspecified; K21.9 Gastro-esophageal reflux disease without esophagitis; M19.90 Unspecified osteoarthritis, unspecified site; K58.9 Irritable bowel syndrome, unspecified; G47.33 Obstructive sleep apnea (adult) (pediatric); Z66 Do not resuscitate; Z87.891 Personal history of nicotine dependence; Z79.84 Long term (current) use of oral hypoglycemic drugs
CPT/HCPCS: 99281

== ENCOUNTER 2025-03-09 17:41 | Inpatient (IN) | payer OTHER, MEDICARE, SELFPAY ==
--- NOTE | ~2025-03-09 | CT_ITS ---
EXAMINATION: CT abdomen pelvis w con DATE: 03/09/2025 20:24 INDICATION: n/v/d, abd pain, AMS TECHNIQUE: Computed tomography (CT) of the abdomen and pelvis was performed with 100 mL Omnipaque-350 intravenous contrast. Automated exposure control and iterative reconstruction technique were employe d. The dose-length product was 1454.88 mGy-cm. COMPARISON: 05/27/2021. FINDINGS: Lower thorax: Small hiatal hernia. Aortic valve calcification Liver: Normal. Biliary/Gallbladder: Gallbladder is contracted, with wall hyperemia. No inflammatory changes. No bile duct dilation. Pancreas: No mass or duct dilation. Spleen: Normal. Adrenals:No mass. Kidneys: Contrast excretion into collecting systems which could obscure calcifications. Simple right lower pole renal cyst. Simple left midpole cyst. Indeterminate density left lower pole lesion, stable in size and morphology. GI tract: Mild distal esophageal and gastric wall edema. Hyperemic duodenal mucosa. No small or large bowel dilation. Appendix surgically absent. Mesentery/Peritoneum: No ascites, mass, or free air. Retroperitoneum: No mass. Atherosclerotic calcifications of intra-abdominal arterial vessels. Pelvis: Distended urinary bladder. Prostatomegaly. Mild urinary bladder wall thickening.. Soft Tissues: Fat-containing uncomplicated appearing umbilical and bilateral inguinal hernias Bones: No acute osseous finding. IMPRESSION: Mild esophagitis/gastritis. Contracted gallbladder which limits evaluation. Gallbladder mucosal hyperemia may reflect a degree of inflammatory change. Duodenal mucosal hyperemia, may represent mild inflammatory change. Indeterminate density left lower pole renal lesion, stable in size and morphology since the prior exa mination in 2020, presumably a hemorrhagic or proteinaceous cyst. Urinary bladder distention with wall thickening. May be secondary to outlet obstruction from prostato megaly. Correlate with urinalysis and symptoms of urinary retention. Reviewed, dictated and finalized at location K. IMPRESSION: Mild esophagitis/gastritis. Contracted gallbladder which limits evaluation. Gallbladder mucosal hyperemia m ay reflect a degree of inflammatory change. Duodenal mucosal hyperemia, may represent mild inflammatory change. Indeterminate density left lower pole renal lesion, stable in size and morpholo gy since the prior examination in 2020, presumably a hemorrhagic or proteinaceo us cyst. Urinary bladder distention with wall thickening. May be secondary to outlet obs truction from prostatomegaly. Correlate with urinalysis and symptoms of urinary retention.
--- NOTE | ~2025-03-09 | XR_ITS ---
XR chest 1V portable 03/21/2025 09:34 Indication: Chest pain Procedure: AP portable chest Comparison: Comparison to multiple prior studies sequentially, with oldest reviewed study dated 02/2019. Findings: Heart size normal. Retrocardiac opacification may represent atelectasis or developing pneum onia. No pleural effusion, edema or pneumothorax. Impression: 1: Retrocardiac opacification may represent atelectasis or pneumonia. Reviewed, dictated and finalized at location A. Impression: 1: Retrocardiac opacification may represent atelectasis or pneumonia.
--- NOTE | ~2025-03-09 | US_ITS ---
EXAM: ABDOMEN ULTRASOUND HISTORY: No applicable history was provided. COMPARISON: Reference is made to a CT examination of the abdomen and pelvis performed less than 24 ho urs earlier FINDINGS: LIVER: The liver is increased in echogenicity and unremarkable in size. The contour of the liver surface is smooth. The portal vein is patent, demonstrating hepatopedal flow. GALLBLADDER: The gallbladder is decompressed, consistent with recent oral intake, unchanged from CT e xamination. No gallbladder wall thickening or pericholecystic fluid. BILE DUCTS: Common bile duct measures 3.5mm. PANCREAS: Limited evaluation of the pancreas secondary to overlying bowel gas IMPRESSION: Unremarkable sonographic evaluation of the right upper quadrant, as detailed above. Reviewed, dictated and finalized at location A. IMPRESSION: Unremarkable sonographic evaluation of the right upper quadrant, as detailed ab iglesiae.
--- NOTE | ~2025-03-09 | XR_ITS ---
EXAMINATION: XR barium swallow DATE: 03/12/2025 10:15 INDICATION: Dysphagia with solids, gastritis and esophagitis TECHNIQUE: The patient drank one swallow of thick barium. Fluoroscopic spot radiographs of the esopha yaniv were obtained. Fluoroscopy exposure time was 0.4 minutes. A total of 235 images were recorded. T otal DAP was 2.77 mGycm^2. COMPARISON: None. FINDINGS/IMPRESSION: There is a moderate amount of debris lodged in the mid to distal esophagus which appeared otherwise u nremarkable. With time the debris gradually cleared into the stomach but which would limit further ev aluation of the stomach. The patient was also unable to stand and was very somnolent, unable to follo w commands. For these reasons the study was terminated. Could consider repeat evaluation when patient is more awake, able to follow commands and after adequate preprocedure fasting. Reviewed, dictated and finalized at location A.
--- NOTE | ~2025-03-09 | CT_ITS ---
EXAMINATION: CTA brain carotid DATE: 03/09/2025 20:24 INDICATION: new AMS; h/o sz, found on floor, new aphasia TECHNIQUE: Computed tomographic angiography (CTA) of the head was performed without and with 100 mL O mnipaque-350 intravenous contrast. CTA of the neck was performed with intravenous contrast. The dose- length product was 1837.38 mGy-cm. Maximum intensity projection and volume rendered 3D-reconstruction s were created by the technologist on a separate workstation. COMPARISON: None. FINDINGS: CT BRAIN: No acute large vessel infarct, intracranial hemorrhage, mass, or hydrocephalus. Mild atrophy and integrity engineer jatinder white matter change. Atherosclerotic intracranial calcification. Bilateral ethmoid and maxillary sinus mucosal thickening. Prior antral window procedures. Small retention cyst/polyp in the right sph enoid sinus. CTA HEAD: No large vessel occlusion, aneurysm, high flow vascular malformation, nidus or extravasation. Patent cerebral veins. Symmetric parenchymal enhancement. CTA NECK: Aortic arch and proximal great vessels: Bovine arch anatomy. Minimal atherosclerotic calcifications a t the visualized aortic arch and proximal great vessels. Right common carotid, carotid bifurcation, and internal carotid artery: Calcified atherosclerotic radha que at the carotid bifurcation.There is 0% stenosis of the proximal right internal carotid artery rel ative to normal distal artery lumen diameter (NASCET criteria). Left common carotid, carotid bifurcation, and internal carotid artery: Calcified atherosclerotic plaq ue at the carotid bifurcation.There is 0% stenosis of the proximal left internal carotid artery relat [place] to normal distal artery lumen diameter (NASCET criteria). Vertebral arteries: No significant plaque or stenosis. Left vertebral artery is dominant. Other findings: Fat density mass in the right parotid measuring up to 3.2. Mostly solid appearing 5.4 cm left thyroid mass. IMPRESSION: No acute intracranial process. No large vessel intracranial occlusion, high-grade intracranial stenosis, or aneurysm. No carotid or vertebral artery occlusion, dissection, or significant stenosis. 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 5.4 mostly solid-appearing left thyroid mass, recommend nonemergent outpatient thyroid ultrasound for further evaluation. Reviewed, dictated and finalized at location K. IMPRESSION: No acute intracranial process. No large vessel intracranial occlusion, high-grade intracranial stenosis, or an eurysm. No carotid or vertebral artery occlusion, dissection, or significant stenosis. 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 5.4 mostly solid-appearing left thyroid mass, recommend nonemergent outpatient thyroid ultrasound for further evaluation.
--- NOTE | ~2025-03-09 | CT_ITS ---
CT head without contrast Indication: Altered mental status COMPARISON: 03/09/2025 Technique: Serial scans were obtained through the brain without the administration of contrast. Dose reduction technique was used on this scan by utilizing automated exposure control and iterative recon struction technique. The dose-length product (DLP) was 1362.00 mGy-cm. Findings: There is no evidence of intracranial hemorrhage, mass lesion, or acute infarct. The ventri cles and subarachnoid spaces are dilated, consistent with mild atrophy. Low attenuation regions are seen within the periventricular white matter bilaterally, likely representing changes from chronic mi crovascular ischemic disease. There is no evidence of edema, mass effect or midline shift. The visu alized paranasal sinuses and mastoid air cells are clear. Impression: No intracranial hemorrhage, mass, or acute infarct. Atrophy and chronic white matter changes, as above. Reviewed, dictated and finalized at [facility]. Impression: No intracranial hemorrhage, mass, or acute infarct. Atrophy and chronic white matter changes, as above.
--- NOTE | ~2025-03-09 | CT_ITS ---
EXAMINATION: CT chest abdomen pelvis w con DATE: 03/22/2025 23:57 INDICATION: fever, cough, abdominal pain . TECHNIQUE: Computed tomography (CT) of the chest, abdomen, and pelvis was performed with 100 mL Omnip aque-350 intravenous contrast. Automated exposure control and iterative reconstruction technique were employed. The dose-length product was 1917.44 mGy-cm. COMPARISON: 07/12/2011; Thyroid ultrasound 03/02/2025; x-ray chest 03/22/2025; CT abdomen pelvis 03/09/20 25 FINDINGS: CHEST: Exam limited by beam hardening from arm positioning. Thoracic aorta: No significant dilation. No dissection. Mild arch calcification. Lung parenchyma and airways: Motion artifact. Dependent atelectasis. Otherwise clear. Patent airways. Thoracic inlet, axillae and chest wall: 3.7 cm left thyroid mass, for which biopsy has been recommend ed in prior ultrasound. No axillary lymphadenopathy. Mediastinum: No mass or lymphadenopathy. Heart and pericardium: Mild cardiomegaly. Left ventricular anterior wall and apical subendocardial fa t. Aortic valve calcification. Coronary artery calcifications: Moderate. Pleura: No effusion or mass. Thoracic bones: Acute versus subacute appearing left eighth and ninth anterolateral rib fractures. Mu ltiple old healed rib fractures. ABDOMEN/PELVIS: Beam hardening in the upper abdomen. Motion artifact. Liver: Normal. Biliary/Gallbladder: Gallbladder is normal. No bile duct dilation. Pancreas: No mass or duct dilation. Spleen: Normal. Adrenals:No mass. Kidneys: No suspicious mass, obstructing stone, or hydronephrosis. Simple right lower pole cyst. Simp le upper and lower pole left renal cysts. Moderate bilateral perinephric stranding. GI tract: Mild distal esophageal and gastric wall edema. No small or large bowel dilation. Appendix n ot confidently visualized. Mesentery/Peritoneum: No ascites, mass, or free air. Retroperitoneum: No mass Atherosclerotic calcifications of intra-abdominal arterial vessels. Pelvis: Partially distended urinary bladder with wall thickening and mild edema. Prostatomegaly Soft Tissues: Bilateral lower abdominal injection sites. Small, uncomplicated appearing fat-containin g umbilical and bilateral inguinal hernias Abdominopelvic bones: No acute osseous finding in the abdomen/pelvis. IMPRESSION: Acute versus subacute left eighth and ninth anterolateral rib fractures. Mild esophagitis/gastritis. Bladder wall thickening, may be secondary to cystitis or chronic obstruction from prostatomegaly. Reviewed, dictated and finalized at location K. IMPRESSION: Acute versus subacute left eighth and ninth anterolateral rib fractures. Mild esophagitis/gastritis. Bladder wall thickening, may be secondary to cystitis or chronic obstruction fr om prostatomegaly.
--- NOTE | ~2025-03-09 | US_ITS ---
US thyroid INDICATION: Thyroid mass. TECHNIQUE: Real-time sonographic images of the thyroid gland were obtained. COMPARISON: CT cervical spine dated 04/30/2020 FINDINGS: The right thyroid lobe measures 4.4 x 1.2 x 1.4 cm. The left thyroid lobe measures 4.5 x 3 .2 x 2.6 cm. Thyroid gland is heterogeneous. There is a 12 mm mostly cystic mass in the right lobe wh ich is largely anechoic, wider than tall, smoothly marginated without echogenic foci, TR 1. In the le ft lobe there is a solid hypoechoic taller than wide mass with smooth margins and no echogenic foci, measuring 2.8 x 2.4 x 2.5 cm, TR 5. Normal vascular flow is present. IMPRESSION: 1. Solid left thyroid mass which is suspicious. Ultrasound-guided fine-needle aspiration biopsy kalani mmended. Reviewed, dictated and finalized at location B. IMPRESSION: 1. Solid left thyroid mass which is suspicious. Ultrasound-guided fine-needle aspiration biopsy recommended.
--- NOTE | ~2025-03-09 | XR_ITS ---
EXAMINATION: XR chest 1V portable DATE: 03/22/2025 11:11 INDICATION: Cough TECHNIQUE: frontal view of the chest was obtained. COMPARISON: Chest radiograph dated 03/21/2025 FINDINGS: Decreasing airspace opacities at the medial left lower lung zone which could represent improving atel ectasis or pneumonia. Right lung remains clear. No pulmonary edema, pleural effusion or pneumothorax. Heart size is normal. IMPRESSION: 1. Decreasing opacities at the left lower lung zone consistent with improving atelectasis or pneumoni a Reviewed, dictated and finalized at location A. IMPRESSION: 1. Decreasing opacities at the left lower lung zone consistent with improving a telectasis or pneumonia
--- NOTE | ~2025-03-09 | MR_ITS ---
EXAMINATION: MR orbits face neck wo/w con DATE: 03/12/2025 15:58 INDICATION: Parotid mass TECHNIQUE: Magnetic resonance imaging (MRI) of the face was performed without and with 20 mL Multihan ce intravenous contrast. Sequences included axial, sagittal and coronal T1-weighted FSE, axial and c oronal fluid sensitive FSE STIR, axial T1-weighted FS FSE and post contrast axial, sagittal and coron al T1-weighted FS FSE were also obtained. COMPARISON: None. FINDINGS: There is a 2.8 x 2.9 x 1.3 cm left parotid mass comprised exclusively of fat with tiny internal feedi ng vessel but no solid soft enhancing soft tissue component. The bilateral parotid glands are otherwi se normal and symmetric. No other masses or fluid collections identified. Bilateral submandibular gla nds are normal and symmetric. Normal sized and appearing facial and upper cervical lymph nodes with n o pathologically enlarged lymphadenopathy. Mild to moderate mucosal thickening throughout the paranas al sinuses with small mucous retention cyst at the floor of the right maxillary sinus. Orbits are nor mal. No abnormal fluid in the mastoid air cells are middle ear cavities. Visualized portion of the br ain are normal for age with mild diffuse volume loss and mild scattered periventricular predominant w contreras matter T2 hyperintensity consistent with chronic small vessel ischemic disease. Severe lower cer vical spondylosis. IMPRESSION: 1. 2.8 x 2.9 x 1.3 cm homogeneously fatty mass without enhancing soft tissue component in the left pa rotid gland most consistent with a lipoma. Reviewed, dictated and finalized at location A. IMPRESSION: 1. 2.8 x 2.9 x 1.3 cm homogeneously fatty mass without enhancing soft tissue co mponent in the left parotid gland most consistent with a lipoma.
--- NOTE | ~2025-03-09 | XR_ITS ---
EXAMINATION: XR chest 1V portable Exam Date/Time: 03/09/2025 19:10 CDT HISTORY: CONFUSION Comparison: 05/26/2021. RESULT: Lines, tubes, and devices: None. Lungs and pleura: Clear. Cardiomediastinal silhouette: Stable. Other: No acute osseous or upper abdominal finding. IMPRESSION: No acute cardiopulmonary process. Reviewed, dictated and finalized at location K.
--- NOTE | ~2025-03-09 | XR_ITS ---
XR abdomen/kub 1V 03/21/2025 09:34 INDICATION: Abdominal pain TECHNIQUE: KUB COMPARISON: None FINDINGS: Bowel gas pattern is normal. Moderate colonic fecal loading. There is no evidence of free a ir, mass, organomegaly, ascites or obstruction. No abnormal calculi are seen. The bones appear inta ct. IMPRESSION: 1: No acute abdominal abnormality identified. Reviewed, dictated and finalized at location A.
[2025-03-09 17:39] VITALS: BP 176/63; PULSE 57; RESP 20; O2SAT 100
--- NOTE | 2025-03-09 18:51 | ECG_ITS ---
Test Date: 2025-03-09 19:59:03 Measurements Intervals [place] Rate: 60 P: 50 IN: 177 QRS: -39 QRSD: 134 T: -76 QT: 468 QTc: 471 Interpretive Statements SINUS RHYTHM LEFT AXIS DEVIATION [QRS AXIS < -30] INTRAVENTRICULAR CONDUCTION DELAY [130+ ms QRS DURATION] No previous ECG available for comparison Electronically Signed On 03-10-2025 12:36:45 CDT by David Moran M.D.
[2025-03-09 19:12] LABS: Hematocrit 44.8 % (42.0-52.0); Hemoglobin 14.7 g/dL (14.0-18.0); Immature Granulocyte Percent A 0.4 % (0-0.5); Lymphocytes Absolute Auto 1.07 K/mm3 (0.9-3.2); Mean Corpuscular HGB Conc 32.8 g/dl (32-36); Mean Corpuscular Hemoglobin 28.1 pg (26-34); Mean Corpuscular Volume 85.5 fl (80-100); Nucleated Red Blood Cells Absolute Auto 0.000 K/mm3 (0.0-0.012); Nucleated Red Blood Cells Perc 0.0 % (0.0-0.2); Platelet Count Result 152 k/mm3 (150-375); Red Blood Count 5.24 M/mm3 (4.6-6.20); White Blood Count 13.6 K/mm3 (4.5-10.0)
[2025-03-09 19:24] LABS: Acetaminophen < 10 ug/mL (10-30); Alanine Aminotransferase 27 U/L (6-50); Albumin Level 4.7 g/dL (3.5-5.1); Alkaline Phosphatase 85 U/L (38-126); Aspartate Amino Transferase 38 U/L (17-59); Bilirubin,Total 1.1 mg/dL (0.2-1.3); Blood Urea Nitrogen 22 mg/dL (9-20); Calcium 9.9 mg/dL (8.4-10.2); Carbon Dioxide 21 mmol/L (22-30); Estimated CRCL calculation 85 ml/min; Estimated Glomerular Filt Rate > 60; Glucose 340 mg/dL (65-110); Potassium 4.5 mmol/L (3.4-5.0); Salicylate < 1.0 mg/dL (2-20); Sodium 131 mmol/L (137-145); Total Protein 8.0 g/dL (6.3-8.2)
[2025-03-09 19:24] LABS: Add Urine Microscopic? YES; Appearance Urine Clear (Clear); Glucose Urine UA 3+ mg/dL (Negative); Leukocyte Esterase Ur Negative LEU/UL (Negative); Nitrate Urine Negative (Negative); Non Pathogenic Casts 0-2; Specific Grav Ur 1.039 (1.001-1.035)
--- NOTE | 2025-03-09 19:25 | PC.NURSE ---
Assumed care of patient after receiving bedside report from ELIJAH Lin @[phone]
[2025-03-09 19:28] VITALS: BP 145/74; PULSE 73; RESP 20; O2SAT 100
[2025-03-09 19:36] LABS: Troponin I 0.030 ng/mL (0.000-0.034)
[2025-03-09 19:42] LABS: Cannabinoid Screen Urine Negative (Negative)
[2025-03-09 19:54] LABS: Thyroid Stimulating Hormone 3.130 uIU/mL (0.465-4.680)
--- NOTE | 2025-03-09 20:00 | PC.NURSE ---
Patient to CT at this time
--- OUTSIDE RECORDS SUMMARY | 2025-03-09 20:10 | XMS_ITS | Encounter Summary ---
Author Organization [facility] Healthcare Address [address] [place] [address] Care Team Providers Care Airline Pilot/First Officer Name Role Phone Devin Perez MD Unavailable [phone] Dylan Hoffman DPM Unavailable [phone] Heriberto Fraga MD Primary Care Provider + Encounter Details Date Type Department Care Team (Late st Contact Info) Description 01/17/2025 Results Follow-Up [facility] [place] [address] [place] [address] [address] [place] [address] Stacy Quinn, [employer] [address] [place] [address] XR Chest PA Lateral 2 Views Social History Tobacco Use Types Packs/Day Years Used Date Smoking Tobacco: Former Smokeless Tobacco: Never Comments:VINH Alcohol Use Standard Drinks/Week Comments No 0 (1 standard drink = 0.6 oz pur e alcohol) [facility] Utilities Answer Date Recorded In the past 12 months has th e electric, gas, oil, or water company threatened to shut off services in your home? No 09/17/2024 Social Connection and Isolation Panel [NHANES] A nswer Date Recorded In a typical week, how many times do you talk on the phone with family, friends, or neighbors? Once a week 09/17/2024 How often do you get together with friends or re latives? Never 09/17/2024 How often do you attend hinduism or synagogue serv ices? Never 09/17/2024 Do you belong to any clubs o r organizations such as hinduism groups, unions, fraternal or athletic groups, or school groups? No 09/17/2024 How often do you attend meet ings of the clubs or organizations you belong to? Never 09/17/2024 Are you , , di vorced, , never , or living with a partner? 09/17/2024 AUDIT-C Answer Date Recorded Q1: How often do you have a drink containing alcohol? Never 08/19/2024 Q2: How many drinks containi ng alcohol do you have on a typical day when you are drinking? Patient does not drink Q3: How often do you have si x or more drinks on one occasion? Never 08/19/2024 Overall Financial Resource Strain (CARDIA) Answe r Date Recorded How hard is it for you to pa y for the very basics like food, housing, medical care, and heating? Not hard at all 09/17/2024 PHQ-2 Answer Date Recorded PHQ-2 Total Score (If total score is 3 or more points, staff should administer the PHQ-9) 0 09/02/2023 Hunger Vital Sign Answer Date Recorded Within the past 12 months, y ou worried that your food would run out before you got the money to buy more. Never true 09/17/19 Within the past 12 months, t he food you bought just didn't last and you didn't have money to get more. Never true 09/17/2024 PRAPARE - Transportation Answer Date Re corded In the past 12 months, has l ack of transportation kept you from medical appointments or from getting medications? No 11/2024 In the past 12 months, has l ack of transportation kept you from meetings, work, or from getting things needed for daily living? No 09/17/2024 Housing Stability Vital Sign Answer Donnie e Recorded In the last 12 months, was t here a time when you were not able to pay the mortgage or rent on time? No 10/03/2023 In the last 12 months, how many places have you lived? 1 10/03/2023 In the last 12 months, was t here a time when you did not have a steady place to sleep or slept in a custodial (including now)? No 10/03/2023 Housing Stability Vital Sign Answer Donnie e Recorded In the last 12 months, was t here a time when you were not able to pay the mortgage or rent on time? No 09/17/2024 In the past 12 months, how m any times have you moved where you were living? 0 09/17/2024 At any time in the past 12 m onths, were you homeless or living in a custodial (including now)? No 09/17/2024 Personal Safety Answer Date Recorded Have you ever been in or are you currently in a harmful physical or emotional relationship or is someone making you feel afraid or unsafe? Denies 10/29/2024 Education Answer Date Recorded What is the highest level of school you have completed or the highest degree you have received? Doctorate 09/05/2023 Sex and Gender Information Value Date Recorded Sex Assigned at Not on file Legal Sex Male 3:26 PM [employer] Gender Identity Not on file Sexual Orientation Not on file documented as of this encounter Miscellaneous Notes * Result Encounter Note - Stacy Quinn NP - 01/17/2025 9:05 AM CDT Please call the patient regarding his normal result. CXR shows no signs of pneumonia or acute problems. Radiologist recommends routine yearly screening for lung cancer based on prior smoking habits. documented in this encounter Plan of Treatment Not on file documented as of this encounter Visit Diagnoses Not on filedocumented in this encounter Care Teams Airline Pilot/First Officer Relationship Specialty Start Date End Date Heriberto Fraga MD [address] [address] PCP - General Internal Medicine 12/07/23 Devin Perez MD [address] [address] [place] [address] 12/22/16 Dylan Hoffman DPM [address] [place] [address] Consulting Physician Foot and Ankle Surg 07/26/23 documented as of this encounter
--- OUTSIDE RECORDS SUMMARY | 2025-03-09 20:10 | XMS_ITS | Clinical Summary ---
Author Organization [facility] Address [address] [place] [address] Care Team Providers Care Call Manager Name Role Phone Devin Perez MD Unavailable [phone] Dylan Hoffman DPM Unavailable [phone] Heriberto Fraga MD Primary Care Provider + Allergies Active Allergy Reactions Criticality Noted Date Comments Grass Pollen Unknown 05/28/2021 Latex Itching Medium 05/28/2021 Monosodium Glutamate Unknown 05/28/2021 Other Anaphylaxis High 05/28/2021 Allergy injections Medications atorvastatin (LIPITOR) 40 mg tablet Take 1 tablet (40 mg total) by mouth nightly Active clopidogrel (PLAVIX) 75 mg tablet Take 1 tablet (75 mg total) by mouth daily Active albuterol HFA (PROVENTIL HFA,VENTOLIN HFA,PROAIR HFA) 90 mcg/actuation inhaler Inhale 2 puffs every 4 (four) hours as needed for wheezing Active gabapentin (NEURONTIN) 600 mg tablet Take 1 tablet (600 mg total) by mouth 3 (three) times a day Active QUEtiapine (SEROquel) 200 mg tablet Take 1 tablet (200 mg total) by mouth nightly Active SITagliptin-met formin (JANUMET) 50-1,000 mg per tablet Take 1 tablet by mouth 2 (two) times a day with meals Active DULoxetine DR (CYMBALTA) 60 mg capsule Take 1 capsule (60 mg total) by mouth every morning Pt takes 60 mg in the AM and 30 mg in the evening for a daily dose of 90 mg Active tamsulosin (FLOMAX) 0.4 mg extended release capsule Take 1 capsule (0.4 mg total) by mouth daily Active glimepiride (AMARYL) 1 mg tablet Take 1 tablet (1 mg total) by mouth daily 1 Active docusate sodium (COLACE) 100 mg capsuleIndicati ons:constipatio n Take 1 capsule (100 mg total) by mouth daily as needed for constipation Active fluticasone propionate (FLONASE) 50 mcg/actuation nasal spray Administer 1 spray into each nostril 2 (two) times a day Active ketoconazole (NIZORAL) 2 % shampoo Apply 1 Application topically once a week 3 Active triamcinolone (KENALOG) 0.1 % cream Apply 1 g topically daily as needed 3 Active dapagliflozin propanediol (FARXIGA) 10 mg tablet Take 1 tablet (10 mg total) by mouth daily Active sodium phosphate - potassium phosphate (K-PHOS NEUTRAL) 250 mg tablet Take 1 tablet (250 mg total) by mouth 2 (two) times a day with meals [address] (CYMBALTA) 30 mg capsule Take 1 capsule (30 mg total) by mouth nightly Pt takes 60 mg in the AM and 30 mg in the evening for a daily dose of 90 mg [address] (NexIUM) 40 mg capsule Take 1 capsule (40 mg total) by mouth daily before breakfast Active guaiFENesin ER (MUCINEX) 600 mg 12 hr tablet Take 1 tablet (600 mg total) by mouth 2 (two) times a day for 10 days 20 tablet 4 Active Additional Information Patient not taking.Reported on 09/17/2024 levETIRAcetam (KEPPRA) 750 mg tablet Take 1 tablet (750 mg total) by mouth 2 (two) times a day 60 tablet 11 5 08/22/19 26 Active ALPRAZolam (XANAX) 0.5 mg tablet Take 1 tablet (0.5 mg total) by mouth 3 (three) times a day as needed for anxiety for up to 7 days 21 tablet 5 Active metoprolol XL (TOPROL-XL) 50 mg extended release tablet Take 1 tablet (50 mg total) by mouth daily 30 tablet 11 5 09/24/19 26 Active traMADoL (ULTRAM) 50 mg tablet Take 1 tablet (50 mg total) by mouth every 8 (eight) hours as needed for pain for up to 7 days 21 tablet 5 Active sacubitriL-vals anam (ENTRESTO) 24-26 mg tabletIndicatio ns:chronic heart failure Take 1 tablet by mouth 2 (two) times a day 60 tablet 1 5 Active furosemide (LASIX) 20 mg tablet Take 1 tablet (20 mg total) by mouth daily 5 Active Active Problems Problem Noted Date Diagnosed Date Cellulitis of toe, unspecified laterality 2024 Altered mental status 08/19/2024 Thyroid nodule 2024 Breakthrough seizure 02/15/2024 Pneumonia of right upper lobe due to infectious organism 02/14/2024 Chronic systolic congestive heart failure 2023 Overview (10/23/2024): Mild LV systolic dysfunction on echo 03 October 2023. Lexiscan on 03 October 2023 also showed LVEF 52%. Moderate LV systolic dysfunction with LVEF of 30% on echo 17 September 2024. On lisinopril 10 mg daily, dapagliflozin 10 mg daily and Toprol-XL 25 mg daily. Elevated LDL cholesterol level 10/25/2023 Overview (10/23/2024): LDL of 50 mg/dL on 03 October 2023. On Lipitor 40 mg p.o. q.d.. Another lipid/liver panel would be useful. Valvular heart disease 10/25/2023 Overview (10/23/2024): Mild MR on echo 03 October 2023. Mild MR on echo 17 September 2024. LVEF of 30%. Acute chest pain 10/03/2023 Chest pain 10/02/2023 Overview (10/23/2024): Right shoulder pain with nonischemic EKG and insignificant delta troponin levels in the hospital. Probable CAD based on EKG and abnormal wall motion on echo. Lexiscan on 03 October 2023 showed large apical infarct with no significant ischemia. LVEF of 52%. Fixed apical defect on Cardiolite 18 September 2024. LVEF of 22%. Currently on baby aspirin, Lipitor 40, Plavix 75, Toprol-XL 25 mg daily. May need cardiac catheterization. 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, unspecified ulcer stage 07/23/2023 Benzodiazepine (tranquilizer) overdose Weakness 06/03/2018 Disorientation Seizure disorder Elevated CK Dehydration Encounters Date Type Department Care Team Description 01/17/2025 Results Follow-Up [facility] at [address] [place] [phone] Stacy Quinn, ADALGISA XR Chest PA Lateral 2 Views 01/16/2025 11:45 AM CDT - 01/16/2025 11:59 PM CDT Hospital Encounter [facility] Radiology - Outpatient Center at [address] [address] Cough productive of purulent sputum; Right-sided chest wall pain Discharge Disposition: Discharge to home or self care 01/16/2025 10:30 AM CDT Office Visit [facility] at [address] [place] [phone] 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, 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 Cough productive of purulent sputum (Primary Dx); Right-sided chest wall pain 01/01/2025 Documentation [facility] - [address] [place] [address] Debbie Brown RN from Last 3 Months Immunizations Immunization Administration Dates Next Due Influenza, Quadrivalent, Hig h Dose, Preservative Free, Intrr 05/31/2021 Influenza, Unspecified 05/14/2024 Surgical History Surgery Date Site/Laterality Comments FRACTURE SURGERY APPENDECTOMY EYE SURGERY COLON SURGERY Medical History Medical History Date Comments Hypertension Hypertension Seizure disorder (HCC) Seizure D isorder Bipolar 1 disorder (HCC) Diabetes mellitus (HCC) Hyperlipidemia Major depressive disorder Anxiety Restless legs syndrome Asthma GERD (gastroesophageal reflux disease) Osteoarthritis Family History Medical History Relation Name Comments Arthritis Father Family history of arthritis - (Added by TW Conv) Heart attack Father Myocardial Infa rction; Cause of : Myocardial Infarction Heart disease Father Family history of cardiac disorder - (Added by TW Conv) Arthritis Mother Family history of arthritis - (Added by TW Conv) Relation Name Status Comments Father Mother Social History Tobacco Use Types Packs/Day Years Used Date Smoking Tobacco: Former Smokeless Tobacco: Never Tobacco Cessation:Counseling Given: Not Answered Comments:VINH Alcohol Use Standard Drinks/Week Comments No 0 (1 standard drink = 0.6 oz pur e alcohol) [facility] Utilities Answer Date Recorded In the past [...] Never 09/17/2024 How often do you attend religion or yazidism serv ices? Never 09/17/2024 Do you belong to any clubs o r organizations such as religion groups, unions, fraternal or athletic groups, or [...] money to buy more. Never true 09/17/19 25 Within the past 12 months, t he [...] place to sleep or slept in a care home (including now)? No 10/03/2023 Housing Stability Vital Sign Answer Donnie e Recorded In the last 12 months, was t here a time when you were not able to pay the mortgage or rent on time? No 09/17/2024 In the past 12 months, how m any times have you moved where you were living? 0 09/17/2024 At any time in the past 12 m [facility], were you homeless or living in a care home (including now)? No 09/17/2024 Personal Safety Answer [...] on file Legal Sex Male 3:26 PM [employer] Gender Identity Not on file Sexual Orientation Not on file Obstetrics History Last Filed Vital Signs Vital Sign Reading Time Taken Comments Blood Pressure 110/64 01/16/2025 10:38 AM CDT Pulse 78 01/16/2025 10:38 AM CDT Temperature 36.8 C (98.2 F) 01/16/2025 10:38 AM CDT Respiratory Rate 14 01/16/2025 10:38 AM CDT Oxygen Saturation 95% 01/16/2025 10:38 AM CDT Inhaled Oxygen Concentration - - Weight 99.8 kg (220 lb) 01/16/2025 10:38 AM CDT Height 188 cm (6' 2) 01/16/2025 10:38 AM CDT Body Mass Index 28.25 01/16/2025 10:38 AM CDT Plan of Treatment Health Maintenance Due Date Last Done Comments Albumin Creatinine Ratio, Urine 1950 Colon Cancer Screening-Colonoscopy 1950 Hepatitis C Screening 1950 Dilated Eye Exam 1950 Foot Exam 1950 DTaP/Tdap/Td Vaccine (1 - Tdap) 02/18/1963 Hepatitis B Screening 02/18/1970 Pneumococcal vaccine 65+ (1 of 2 - PCV) 02/18/1971 Zoster Vaccine (1 of 2) 02/18/2002 Abdominal Aortic Aneurysm (A AA) Screen 02/18/2017 Well Visit 65+ 02/18/2017 Covid-19 Vaccine (3 - 2023-2 5 season) 2024 02/26/2021, 02/02/2021 Depression Screening 08/31/2024 08/31/2023 Hemoglobin A1C 03/16/2025 09/16/2024, 07/14, 06/26/2018 Influenza Vaccine (#1) 2025 05/14/2024, 2020 Lipid Panel 08/09/2025 08/09/2024, 09/15, 07/24/2023, Additional history exists eGFR 10/25/2025 10/25/2024, 09/14, 09/22/2024, Additional history exists Fall Risk Assessment 10/29/2025 10/29/2024 Procedures Procedure Name Priority Date/Time Associated Diagnosis Comments XR CHEST PA LATERAL 2 VIEWS Schedule MISSY, Read MISSY (Appt Today, Awaiting Results) 01/16/2025 12:00 PM CDT Cough productive of purulent sputum Right-sided chest wall pain EGFR STAT 10/25/2024 6:48 PM CDT HEMOGLOBIN A1C Routine 09/16/2024 8:02 PM [employer]NER LIPID PANEL Routine 10/03/2023 7:16 AM [employer]GG[employer]NER from Last 3 Months or Most Recently Relevant to Health Maintenance Results * XR Chest PA Lateral 2 Views (01/16/2025 12:00 PM CDT) Anatomical Region Laterality Modality Body, Chest N/A Computed Radiogr aphy 01/16/2025 3:56 PM CDT Narrative 01/16/2025 3:58 PM CDT EXAM DESCRIPTION: XR CHEST PA LATERAL 2 VIEWS REASON FOR STUDY: Chronic right lateral chest discomfort and productive cough for 3 months. No provided history of trauma. Former smoker without provided pack-year history or duration of cessation. History of CHF. No chest surgeries. TECHNIQUE: Frontal and lateral radiographic view(s) of the chest. COMPARISON: Chest radiograph 10/25/2024. FINDINGS: LUNGS: No focal consolidation. No pleural effusion. No pneumothorax. HEART/MEDIASTINUM: Allowing for patient rotation, trachea midline. Heart normal in size and contour. Hilar and mediastinal structures unremarkable. LINES/TUBES: None. BONES: No acute osseous abnormality. Old right rib fractures. IMPRESSION: 1. No radiographic evidence of acute cardiopulmonary process. 2. Evaluation for qualification for routine outpatient annual CT lung cancer screening recommended in a former smoker. THIS IS AN ELECTRONICALLY VERIFIED FINAL REPORT 01/16/2025 3:58 PM - Electronically signed by Pierto Marie M.D. HALEY: HALEY Report ID: [id number] Reading Location: [id number] Procedure Note Pietro Marie MD - 01/16/2025 EXAM DESCRIPTION: XR CHEST PA LATERAL 2 VIEWS REASON FOR STUDY: Chronic right lateral chest discomfort and productivecough for 3 months. No provided history of trauma. Former smoker withoutprovided pack-year history or duration of cessation. History of CHF. No chest surgeries. TECHNIQUE: Frontal and lateral radiographic view(s) of the chest. COMPARISON: Chest radiograph 10/25/2024. FINDINGS: LUNGS: No focal consolidation. No pleural effusion. No pneumothorax. HEART/MEDIASTINUM: Allowing for patient rotation, trachea midline. Heart normal in size and contour. Hilar and mediastinal structuresunremarkable. LINES/TUBES: None. BONES: No acute osseous abnormality. Old right rib fractures. IMPRESSION: 1. No radiographic evidence of acute cardiopulmonary process. 2. Evaluation for qualification for routine outpatient annual CT lungcancer screening recommended in a former smoker. THIS IS AN ELECTRONICALLY VERIFIED FINAL REPORT 01/16/2025 3:58 PM - Electronically signed by Pietro Marie M.D. HALEY: HALEY Report ID: [id number] Reading Location: [place] [address] [place] Stacy Quinn NP IMG XR PROCEDURES Final Result * eGFR (10/25/2024 6:48 PM CDT) eGFR 64 >=60 mL/min/1. 73 m2 Comment: Interpretive Data Reference Interval Normal >/= 90 mL/min/1.73m2 Mildly decreased* 60 - 89 mL/min/1.73m2 Mildly to moderately decreased 45 - 59 mL/min/1.73m2 Moderately to severely decreased 30 - 44 mL/min/1.73m2 Severely decreased 15 - 29 mL/min/1.73m2 Kidney Failure < 15 mL/min/1.73m2 *Relative to young adult level Estimated glomerular filtration rate is determined by the 2020 CKD-EPI equation recommended by the National Kidney Foundation (A Unifying Approach to GFR Estimation: Recommendations of the NKF-ASK Task Force on Reassessing the Inclusion of Race in Diagnosing Kidney Disease, JASN 2020). The CKD-EPI equation should not be used for patients with unstable renal function and has not been validated in children and those over 70. Current interpretive data was last reviewed 2021. Blood 10/25/2024 6:48 PM CDT 10/25/2024 6:58 PM CDT Abisai Laughlin MD LAB BLOOD ORDERABL ES Final Result Performing Organization Address [facility] de Phone Number [facility] ([place] [address] [place] [phone] * (ABNORMAL) Hemoglobin A1c (09/16/2024 8:02 PM [employer]GGY [employer]NER) Hgb A1C 10.6(H) 4.0 - 5.6 % Estimated Average Glucose 258 mg/dL [facility] Comment: The ADA recommends reporting an estimated Average Glucose (eAG) with all Hemoglobin A1c results using the equation derived from a study of 507 normal and diabetic adults. Minority populations were underrepresented and children were not included. (Diabetes Care 31:6389-3113, 2008). The eAG is not equivalent to a fasting glucose. Blood 09/16/2024 8:02 PM [employer]NER 09/17/2024 7:58 AM [employer]NER Jessica Douglas MD LAB BLOOD ORDERABLES Final Resul t Performing Organization Address [facility] Co de Phone Number [facility] [address] [place] [phone] * (ABNORMAL) Lipid panel (10/03/2023 7:16 AM BUGGY RUNNER) Cholesterol 112 30 - 199 mg/dL [facility] ([place]) Comment: Interpretive Data Ages < or = 19 years Acceptable: <170 mg/dL Borderline high: 170-199 mg/dL High: >or= 200 mg/dL Ages > or = 20 years Desirable: <200 mg/dL Borderline high: 200-239 mg/dL High: >or= 240 mg/dL Literature References: 1. Expert Panel on Integrated Guidelines for Cardiovascular Health and Risk Reduction in Children and Adolescents. Pediatrics 2011;128:S213 2. NCEP Expert Panel. Circulation 2004;110:227 Current Interpretive Data was last revised on 2018. Triglycerides 143 <=149 mg/dL [facility] Comment: Interpretive Data Ages < or = 9 years Acceptable: <75 mg/dL Borderline high: 75-99 mg/dL High: >or= 100 mg/dL Ages 10 to 20 years Acceptable: <90 mg/dL Borderline high: 90-129 mg/dL High: >or= 130 mg/dL Ages > or = 20 years Desirable: <150 mg/dL Borderline high: 150-199 mg/dL High: 200-499 mg/dL Very high: >or= 499 mg/dL Literature References: 1. Expert Panel on Integrated Guidelines for Cardiovascular Health and Risk Reduction in Children and Adolescents. Pediatrics 2011;128:S213 2. NCEP Expert Panel. Circulation 2004;110:227 Current Interpretive Data was last revised on 2018. HDL 33(L) >=40 mg/dL [facility] ([place]) Comment: Interpretive Data Ages < or = 19 years Acceptable: >45 mg/dL Borderline low: 40-45 mg/dL Low: <40 mg/dL Ages > or = 20 years Desirable: >or= 60 mg/dL Low: <40 mg/dL Literature References: 1. Expert Panel on Integrated Guidelines for Cardiovascular Health and Risk Reduction in Children and Adolescents. Pediatrics 2011;128:S213 2. NCEP Expert Panel. Circulation 2004;110:227 Current Interpretive Data was last revised on 2018. LDL, calculated 50 <=129 mg/dL [facility] ([place]) Comment: Interpretive Data Ages < or = 19 years Acceptable: <110 mg/dL Borderline high: 110-129 mg/dL High: >or= 130 mg/dL Ages > or = 20 years Optimal: <100 mg/dL Near optimal: 100-129 mg/dL Borderline high: 130-159 mg/dL High: >160 mg/dL Literature References: 1. Expert Panel on Integrated Guidelines for Cardiovascular Health and Risk Reduction in Children and Adolescents. Pediatrics 2011;128:S213 2. NCEP Expert Panel. Circulation 2004;110:227 Current Interpretive Data was last revised on 2018. Non-HDL Cholesterol 79 mg/dL [facility] ([place] Comment: Interpretive Data Ages < or = 19 years Acceptable: <120 mg/dL Borderline high: 120-144 mg/dL High: >145 mg/dL Ages > or = 20 years When triglycerides are >200 mg/dL, Non-HDL cholesterol is a secondary target of therapy with treatment goals that are 30 mg/dL greater than the LDL cholesterol target. Literature References: 1. Expert Panel on Integrated Guidelines for Cardiovascular Health and Risk Reduction in Children and Adolescents. Pediatrics 2011;128:S213 2. NCEP Expert Panel. Circulation 2004;110:227 Current Interpretive Data was last revised on 2018. Chol/HDL ratio 3 [facility] ([place]) Blood 10/03/2023 7:16 AM BUGGY [employer]NER 10/03/2023 7:19 AM [employer]NER Viktor Anderson MD LAB BLOOD ORDERABLES Final Resul t [facility]) [address] [facility] Department [place] [address] from Last 3 Months or Most Recently Relevant to Health Maintenance Insurance [employer] MEDIC[employer] PPO Member Subscriber Plan / Payer (Ef fective 2017-Present) Name:Abhishek Ford Relation to Subscriber:Self Name:Abhishek Ford Sandee Payer ID:[id number] (NAIC) Type:MEDICARE RISK OTHER Address: [address] MEDICARE ADVANTAGE [employer] MEDIC[employer] PPO Advance Directives For more information, please contact: [phone] Documents on File Type Date Recorded 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 Expl anation ADVANCE DIRECTIVE 09/21/2021 11:34 AM DNR ADVANCE DIRECTIVE 06/09/2021 11:37 PM ADVANCE DIRECTIVE 05/27/2021 9:24 PM * Full Code (Latest Code Status on File) Date Activated Date Inactivated Comments 09/19/2024 11:15 AM 09/23/2024 11:51 PM * LIMITED - No CPR Date Activated Date Inactivated Comments 09/17/2024 6:45 AM 09/19/2024 11:14 AM * LIMITED - No CPR Date Activated Date Inactivated Comments 08/19/2024 11:18 PM 08/22/2024 5:22 PM * LIMITED - No CPR Date Activated Date Inactivated Comments 02/14/2024 11:22 PM 2024 7:06 PM Question Answer Comments Provide aggressive medical m anagement before a full cardiopulmonary arrest occurs. Use antibiotics, IV Fluids, and medical treatment unless specifically selected below: No intubation * Comfort Care Only - DO NOT Resuscitate Date Activated Date Inactivated Comments 10/03/2023 9:59 AM 10/04/2023 4:25 PM Care Teams Call Manager Relationship Specialty Start Date End Date Heriberto Fraga MD [address] [place] [address] PCP - General Internal Medicine 12/07/23 Devin Perez MD [address] [place] [place] [address] [place] [address] 12/22/16 Dylan Hoffman DPM [address] [place] [address] Consulting Physician Foot and Ankle Surg 07/26/23
--- OUTSIDE RECORDS SUMMARY | 2025-03-09 20:10 | XMS_ITS | Data Portability ---
Author Organization [place] [facility], [employer] Address [address] [place] [address] Care Team Providers Care Youth Development Professional Name Role Phone [facility] OTHER Assessment Encounter Date Assessment Date Assessment LastModified by Organization Details LastModified Time 03/24/2021 03/24/2021 Medication Changes D/C Imodium D/C SSI NATALIO obtained. Records requested. Labs ordered to eval levels. Signs and symptoms of when to seek further care reviewed with patient. Patient to follow up with primary care provider or return to clinic for any worsening signs and symptoms. Always present to ER or Urgent Care with any progression of/alarming symptoms, significant changes in symptoms or any concerning or urgent matters. Patient verbalized agreement and understanding of treatment plan. F/U 4 weeks, sooner if needed [email or web address] Not available 03/25/2021 12:24:35 04/21/2021 04/21/2021 Medication Changes URSULA Rao was present at visit with patient's permission. Patient's sole focus was his demands associated with Xanax. Patient would make statements, but when questioning he would shift the conversation back to being on it for over 40 years. However, patient would not provide any medical providers information. Reviewing [place] [employer] shows the medication had begun sometime in 2019, but again patient attempted to talk over the discussion. Counseled patient that other modalities existed to help with anxiety and would be happy to discuss those. However, patient persisted to demand for Xanax. Patient had attempted previously to tearing items off the wall because items changed is unfortunately not an appropriate behavior. The police were called for the incidents. Patient kept making statements that he was the customer and I was to provide him whatever he demanded. Counseled patient on other modalities of treatment, but again patient kept repeating he was a customer and I was to give him whatever he demanded. Patient was told unfortunately it does not work that way. Discussion about medication and changes occurred his first visit and patient attempted to say he did not know who I was. Reminded patient about prior visit and what he was doing and the related and he again proceeded about him being the customer. Advised patient of the treatment plan and patient stated he was the customer and I was fired and to get out of his room. Exited room per request. Contacted pharmacy regarding medications and spoke with Allie. Facility staff has noted patient's increasing aggression and impulsively on multiple occasions and this has happened multiple times over the course of his residency at the facility. Patient is discharged from the practice immediately per his request. Signs and symptoms of when to seek further care reviewed with patient. Patient to follow up with primary care provider or return to clinic for any worsening signs and symptoms. Always present to ER or Urgent Care with any progression of/alarming symptoms, significant changes in symptoms or any concerning or urgent matters. Patient verbalized agreement and understanding of treatment plan. [email or web address] Not available 04/22/2021 08:41:32 Plan of Treatment Reminders Order Date Submit Date Provider Last Modified By Organization Details Last Modified Time Details Appointments None recorded. Lab hemoglobin A1c, QN, blood 2020 021 [email or web address] Mojgan Purvis [facility], [facility] , [place], [address], 14:58:02 microalbumi n, urine 2020 021 [email or web address] Mojgan Purvis [facility] , [place], [address], 14:25:08 urinalysis complete, reflex culture 2020 021 PING Gayle [facility] , [place], [address], 11:19:36 magnesium, blood 2020 021 [email or web address] Mojgan Purvis [facility], [facility] [place], [address], 1 14:58:03 CMP, serum or plasma 2020 021 Mojgan Purvis [facility], [facility] [place], [address], 1 14:58:03 CBC 2020 021 [email or web address] Molena [facility], [facility] [place], [address], 1 14:58:03 lipid panel, blood 2020 021 [email or web address] Mojgan Purvis [place] [address] [place], [address], 1 14:58:02 TSH, serum, reflex free T4 2020 021 Molena [place] [address] [place], [address], 14:58:02 Referral None recorded. Procedures None recorded. Surgeries None recorded. Imaging None recorded. Medication Orders None recorded. Patient TargetsNo targets recorded. Patient Instructions Encounter Date Encounter Id Patient Instructions Last Modified By Organization Details Last Modified Time 03/24/2021 [id number] advance directives: care instructions [email or web address] Not available 03/25/2021 11:26:12 Reason for Referral None Reported. Results Created Date Observation Date Name Description Value Unit Range Abnormal Flag Note LastModifiedBy Organization Detail LastModifiedTime Result Notes None recorded. Problems Name Problem SNOMED Code Status Onset Date Resolution Date Notes Provider Name and Address Organization Details Recorded Time Essential hypertension 23346764 Active 2020 GIL Aleman-BC, PMHNP-BC [address] [place], [address], [place] [facility] 11:22:03 Uncontrolled type 2 diabetes mellitus 312321219 Active 2020 BK AlemanP-, [facility]- [address] [place], [address], [facility] 11:22:04 Hyperlipidemia 49635104 Active 2020 Tanya Michael, [facility]-, [facility]- [address] [place], [address], [facility] 11:22:05 Problem Notes None recorded. Procedures Surgical History Date Name Laterality Status Provider Name and Address Organization Details Recorded Time Reconstruction of nose completed ANUSHA HANLEY [facility] 03/22/2021 12:34:14 Imaging Results None recorded. Procedure Notes None recorded. Medical Equipment None Reported. Medications Name Sig Start Date Stop Date Status Note LastModified by Organization Details LastModified Time Flomax 0.4 mg capsule Take 1 capsule(s ) twice a day by oral route. active Not Available Not Available No t Available atorvastati n 80 mg tablet TAKE 1 TABLET BY MOUTH EVERY EVENING DX: HYPERLIPI DEMIA 2020 active Not Available Not Available Not Avai lable gabapentin 600 mg tablet TAKE 1 & 1/2 TAB (900MG) BY MOUTH 3 TIMES DAILY DX: PAIN 2020 active Not Available Not Available Not Avai lable loperamide 2 mg capsule 2 tablets as needed for loose stools 03/25 completed Not Available Not Available Not Available levetiracet am 500 mg tablet TAKE 3 TABS (1500MG) BY MOUTH TWICE DAILY DX: EPILEPSY 2020 active Not Available Not Available Not Avai lable clonazepam 0.5 mg tablet Take 1 tablet twice a day by oral route for 30 days. 05/28 completed Not Available Not Available Not Available quetiapine 200 mg tablet TAKE 1 TABLET BY MOUTH AT BEDTIME DX: BIPOLAR DISORDER 2020 active Not Available Not Available Not Avai lable clopidogrel 75 mg tablet TAKE 1 TABLET BY MOUTH ONCE DAILY DX: ATHEROSCL EROSIS OF CORONARY ARTERY 2020 active Not Available Not Available Not Avai lable tramadol 50 mg tablet Take 1 tablet every 8 hours by oral route as needed. active Not Available Not Available No t Available alprazolam 0.5 mg tablet TAKE 1 TABLET BY MOUTH TWICE DAILY;GURVINDER E 1 TABLET BY MOUTH DAILY NEEDED DX: ANXIETY *BLISTER* 05/28 completed Not Available Not Available Not Available Imodium A-D 2 mg tablet Take by oral route. 03/25 completed Not Available Not Available Not Available gabapentin 800 mg tablet Take 1 tablet 3 times a day by oral route. 03/25 completed Not Available Not Available Not Available esomeprazol e magnesium 40 mg capsule,del ayed release TAKE 1 CAPSULE BY MOUTH ONCE DAILY DX: GERD 2020 active Not Available Not Available Not Avai lable Tylenol 325 mg tablet Take 2 tablets every 4 hours by oral route as needed. active Not Available Not Available No t Available metoprolol succinate ER 25 mg tablet,exte nded release 24 hr TAKE 1 TABLET BY MOUTH ONCE DAILY DX: HTN 2020 active Not Available Not Available Not Avai lable albuterol sulfate HFA 90 mcg/actuati on aerosol inhaler active Not Available Not Available Not Available docusate sodium 100 mg tablet Take 1 tablet twice a day by oral route. active Not Available Not Available No t Available Blood Glucose Test strips Take 1 strip 3 times a day by miscell. route. active Not Available Not Available No t Available insulin lispro (U-100) 100 unit/mL subcutaneou s pen Inject by subcutane ous route. 03/25 completed Not Available Not Available Not Available Novolog FlexPen U-100 Insulin aspart 100 unit/mL (3 mL) subcutaneou s 03/25 completed Not Available Not Available Not Available nitrofurant oin monohydrate /macrocryst als 100 mg capsule 03/25 completed Not Available Not Available Not Available duloxetine 30 mg capsule,del ayed release TAKE 1 CAPSULE BY MOUTH TWICE DAILY DX: DEPRESSIO N 2020 active Not Available Not Available Not Avai lable Novofine Autocover 30 gauge x 1/3 needle use as directed 03/25 completed Not Available Not Available Not Available Janumet 50 mg-1,000 mg tablet TAKE 1 TABLET BY MOUTH TWICE DAILY DX: DM2 2020 active Not Available Not Available Not Avai lable Unifine Pentips Plus 31 gauge x 5/16 needle use as directed 03/25 completed Not Available Not Available Not Available ForaCare GD20 use as directed 03/25 completed Not Available Not Available Not Available Flonase Allergy Relief 50 mcg/actuati on nasal spray,suspe nsion [place] 2 sprays every day by intranasa l route. active Not Available Not Available No t Available Basaglar KwikPen U-100 Insulin 100 unit/mL (3 mL) subcutaneou s Inject 45 units every day by sub-q route at bedtime for 30 days. active Not Available Not Available No t Available Basaglar KwikPen U-100 Insulin 03/25 completed Not Available Not Available Not Available Rybelsus 3 mg tablet 03/25 completed Not Available Not Available Not Available Vitals Date Recorded Body weight Heart rate Respiratory rate Oxygen saturation Oxygen saturation in Arterial blood by Pulse oximetry Body temperature Systolic And Diastolic Provider Name and Address Organization Details Last Updated DateTime 1 126387. 17 g 73 /min 20 /min 96 % 96 % 97.1 [degF] 138/82 mm[Hg] Joanna Roseanna [facility] 17:06:41 Social History Question Answer Notes LastModified by Organizat ion Details LastModified Time Tobacco Smoking Status Former Smoker ANUSHA james, [facility] 03/22/2021 12:42:19 Do You Have An Advance Directive? Yes [email or web address] Information not available 03/22/2021 Are You Blind Or Do You Have Difficulty Seeing? No Information not available 03/22/2021 What Is Your Level Of Caffeine Consumption? Moderate [email or web address] Information not available 03/22/2021 What Is Your Code Status? DNR [email or web address] Information not available 03/22/2021 Are You Deaf Or Do You Have Serious Difficulty Hearing? Yes [email or web address] Information not available 03/22/2021 What Type Of Diet Are You Following? REGULAR [email or web address] Information not available 03/25/2021 What Is The Highest Grade Or Level Of School You Have Completed Or The Highest Degree You Have Received? BI23613-6 [email or web address] Information not available 03/22/2021 Have There Been Any Changes To Your Family Or Social Situation? No [email or web address] Information no t available 03/25/2021 Are There Any Guns Present In Your Home? No Information not available 03/22/2021 Do You Use Insect Repellent Routinely? No [email or web address] Information not available 03/22/2021 Do You Have A Medical Power Of Laborer [place]? Yes [email or web address] Information not available 03/25/2021 What Was The Date Of Your Most Recent Tobacco Screening? 03/24/2021 [email or web address] Information not available 03/25/2021 How Many Children Do You Have? 0 [email or web address] Information not available 03/22/2021 Do You Have Any Pets? No [email or web address] Information not available 03/22/2021 What Is Your Relationship Status? [email or web address] Information not available 03/22/2021 Do You Use Your Seat Belt Or Car Seat Routinely? Yes [email or web address] Information not available 03/25/2021 Do You Have Smoke And Carbon Monoxide Detectors In Your Home? Yes [email or web address] Information not available 03/22/2021 At What Age Did You Start Smoking Tobacco? 20 [email or web address] Information not available 03/22/2021 Are You Passively Exposed To Smoke? No Information no t available 03/22/2021 Do You Use Sunscreen Routinely? No Information not available 03/22/2021 How Many Years Have You Smoked Tobacco? 10 [email or web address] Information not available 03/22/2021 Do You Have Difficulty Walking Or Climbing Stairs? Yes [email or web address] Information not available 03/22/2021 Are You Currently In School? No [email or web address] Information not available 03/25/2021 Do You Have Any Dietary Restrictions? No Information not available 03/22/2021 Sex: Male Functional Status Question Answer Note LastModified by Organizat ion Details LastModified Time Do you use any illicit or recreational drugs? No [email or web address] Information not available 03/22/2021 Do you or have you ever used any other forms of tobacco or nicotine? No [email or web address] Information not available 03/22/2021 What is your level of alcohol consumption? Occasional [email or web address] Information not available 03/22/2021 Are you currently employed? No [email or web address] Information not available 03/25/2021 Do you have transportation difficulties? No [email or web address] Information not available 03/22/2021 Are you able to walk? YESASSIST [email or web address] Information not available 03/22/2021 Do you have difficulty doing errands alone? No [email or web address] Information not available 03/22/2021 Are you able to care for yourself independently? Yes [email or web address] Information not available 03/22/2021 Do you have difficulty dressing, bathing, grooming, or toileting? No [email or web address] Information not available 03/22/2021 What is your exercise level? None [email or web address] Information not available 03/22/2021 Mental Status Question Answer Note LastModified by Organization D etails LastModified Time Do you feel stressed (tense, restless, nervous, or anxious, or unable to sleep at night)? [id number] [email or web address] Information not available 03/22/2021 Family History Relationship Description Onset Age of this Age Resolved Age Notes LastModified by Organization Details LastModified Time Father Heart disease [email or web address] Not available 03/22 12:29:50 Paternal Grandmother Dementia [email or web address] Not available 12:30:14 Paternal Grandmother Diabetes mellitus [email or web address] Not available 03/22 12:31:06 Paternal Grandfather Dementia [email or web address] Not available 12:30:14 Medical History Condition Response Anxiety Disorder Y Allergies/Hayfever Y Diabetes Y Osteoarthritis Y Seizures/Epilepsy Y Chronic pain Y Ear, Nose, Throat Diseases / Disorders Y Hyperlipidemia Y Cancer Y Asthma Y Depression Y UTI Y Foot Diseases / Disorders Y Neurological Diseases / Disorders Y Hypertension Y Eye Disease / Disorders Y Nephrology Diseases/Disorders Y Past Encounters Encounter ID Performer Location Encounter Start Date Encounter Closed Date Diagnosis/Indication Diagnosis SNOMED-CT Code Diagnosis ICD10 Code Diagnosis Note [id number] ALEJANDRA Aleman, [facility] Main Office [address] [place] [address] 03/24/2021 05:33:22 03/25/2021 12:34:20 Essential hypertension 73421882 I10 Uncontroll ed type 2 diabetes mellitus 046364998 E11.65 Hyperlipidemia 29546397 E78.5 Advance care planning 71 3592843 Z71.89 Fatigue 21969549 R53.83 [id number] ALEJANDRA Aleman, [facility] Main Office [address] [place] [address] 04/21/2021 05:27:21 04/22/2021 09:21:27 Demanding behavior 886686625 R46.89 On examina tion - agitated 777544609 R45.1 Unsteady when walking 22 589032 R26.89 Health Concerns Section Related Observation LastModified by Organization Detai ls LastModified Time None Recorded Concern Status LastModified by Organization Details LastModified Time None Recorded Advance Directives Directive Y: Payers Insurance Date Sequence Insurance Name Policy Number Policy Villagomez Covered Member ID Villagomez Member ID Guarantor Name 04/18/2021 1 [facility] (MEDICARE REPLACEMENT/A DVANTAGE - PPO) [id number] Abhishek Ford [id number] Abhishek Ford 03/16/2021 1 [place] Abhishek Ford [id number] Abhishek Ford 03/16/2021 1 [employer] (MEDICARE REPLACEMENT/A DVANTAGE - HMO) Abhishek Ford [id number] Abhishek Ford Notes Date Note Type Note Provider Name and Address Organization Details Recorded Time 1 text/html Diabetes F/UReported by PatientHPIFor context, patient reportsnot seeing eye doctor yearlyandnot checking feet regularly. For associated symptoms, patient reportsno weight gain,no weight loss,no dizziness,no sweats,no headaches,no confusion,no increased thirst,no increased appetite,no increased urination,no blurred vision,no numbness of feet, andno calluses on feet. Hypertension F/UReported by PatientHPIFor lifestyle, patient reportsnot exercising regularlyandhigh salt intake. For medications, patient reportstaking medications as directedandno side effects from medication. For associated symptoms, patient reportsno dizziness,no lightheadedness,no chest pain,no shortness of breath,no palpitations,no edema,no calf pain with exertion, andno headache. HyperlipidemiaReported by PatientHPIFor type of hyperlipidemia, patient reportscombined. For duration, patient reportschronic. For compliance, patient reportsnoncompliant with dietanddoes not exercise. For risk factors, patient reportsdiabetes,hyperten sagar, andobesity. For control, patient reportsimproving. Tanya Michael, [facility]-, PMNI-BC [address] [place], [address], [facility] 03/25/2021 12:33:13 1 text/html Anxiety/DepressionReport ed by StaffHPIFor severity, staff reportsdenies suicidal ideationsanddoes not interfere with activities of daily living. For onset/timing, staff reportscannot identify. For context, staff reportsno major life stressors. For quality, (variable). For associated symptoms, (unable to determine, but facility reported higher irritablility when not getting his way and this has been ongoing.). ALEJANDRA Aleman, NI-JARED [address] [place], [address], [facility] 04/22/2021 08:42:21
--- OUTSIDE RECORDS SUMMARY | 2025-03-09 20:10 | XMS_ITS | Referral Summary ---
Author Organization [facility] al Address [address] [place] [address] Care Team Providers Care Licensed Acupuncturist Name Role Phone Devin Perez MD Unavailable [phone] Dylan Hoffman DPM Unavailable [phone] Heriberto Fraga MD Primary Care Provider + Encounters Date Type Department Care Team Description 01/17/2025 Results Follow-Up [facility] at [address] [place] [address] Stacy Quinn, ADALGISA XR Chest PA Lateral 2 Views 01/16/2025 11:45 AM CDT - 01/16/2025 11:59 PM CDT Hospital Encounter [facility] Radiology - Outpatient Center at [address] [address] Cough productive of purulent sputum; Right-sided chest wall pain Discharge Disposition: Discharge to home or self care 01/16/2025 10:30 AM CDT Office Visit [facility] at [address] [place] [address] Stacy Quinn NP Cough productive of purulent sputum (Primary Dx); Right-sided chest wall pain 01/01/2025 Documentation [facility] - [address] [place], [place] [id number] Debbie Brown RN from Last 3 Months Allergies Active Allergy Reactions Criticality Noted Date [...] 06/03/2018 Disorientation Seizure disorder Elevated CK Dehydration Immunizations Immunization Administration Dates Next Due Influenza, Quadrivalent, Hig h Dose, Preservative Free, Intrr 05/31/2021 Influenza, Unspecified 05/14/2024 Social History Tobacco Use Types Packs/Day Years Used Date Smoking Tobacco: Former Smokeless Tobacco: Never Tobacco Cessation:Counseling Given: Not Answered Comments:VINH Alcohol Use Standard Drinks/Week Comments No 0 (1 standard drink = 0.6 oz pur e alcohol) [facility] Utilities Answer Date Recorded In the past [...] Never 09/17/2024 How often do you attend synagogue or mandaeism serv ices? Never 09/17/2024 Do you belong to any clubs o r organizations such as synagogue groups, unions, fraternal or athletic groups, or [...] place to sleep or slept in a residential (including now)? No 10/03/2023 Housing Stability Vital Sign Answer Donnie e Recorded In the last 12 months, was t here a time when you were not able to pay the mortgage or rent on time? No 09/17/2024 In the past 12 months, how m any times have you moved where you were living? 0 09/17/2024 At any time in the past 12 m [facility], were you homeless or living in a residential (including now)? 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 Gender Identity Not on file Sexual Orientation Not on file Last Filed Vital Signs Vital Sign Reading [...] 01/16/2025 10:38 AM CDT Plan of Treatment Not on file Procedures Procedure Name Priority Date/Time Associated Diagnosis Comments XR CHEST PA LATERAL 2 VIEWS Schedule MISSY, Read MISSY (Appt Today, Awaiting Results) 01/16/2025 12:00 PM CDT Cough productive of purulent sputum Right-sided chest wall pain EGFR STAT 10/25/2024 6:48 PM CDT HEMOGLOBIN A1C Routine 09/16/2024 8:02 PM WOOL PRESSER LIPID PANEL Routine 10/03/2023 7:16 AM WOOL PRESSER from Last 3 Months or Most Recently [...] Pietro Marie M.D. HALEY: HALEY Report ID: [id number] Reading Location: [id number] Procedure Note Pietro Marie MD - 01/16/2025 [...] Pietro Marie M.D. HALEY: HALEY Report ID: [id number] Reading Location: [place] [address] [place] Stacy Quinn NP IMG XR PROCEDURES [...] ORDERABL ES Final Result Performing Organization Address [facility] de Phone Number [facility] ([place]) [address] [facility] [place] [address] * (ABNORMAL) Hemoglobin A1c (09/16/2024 8:02 PM WOOL PRESSER) Hgb A1C 10.6(H) 4.0 - 5.6 % Estimated Average Glucose 258 mg/dL [facility] Comment: The ADA recommends reporting an estimated Average Glucose (eAG) with all Hemoglobin A1c results using the equation derived from a study of 507 normal and diabetic adults. Minority populations were underrepresented and children were not included. (Diabetes Care 31:6678-3263, 2008). The eAG is not equivalent to a fasting glucose. Blood 09/16/2024 8:02 PM WOOL PRESSER 09/17/2024 7:58 AM WOOL PRESSER Jessica Douglas MD LAB BLOOD ORDERABLES Final Resul t Performing Organization Address City/[facility] Co de Phone Number [facility] ([place]) 1 [facility] [place] [address] * (ABNORMAL) Lipid panel (10/03/2023 7:16 AM WOOL PRESSER) Cholesterol 112 30 - 199 mg/dL [facility] ([place]) Comment: Interpretive Data Ages < or = [...] on 2018. Chol/HDL ratio 3 [facility] ([place]) Blood 10/03/2023 7:16 AM WOOL PRESSER 10/03/2023 7:19 AM WOOL PRESSER Viktor Anderson MD LAB BLOOD ORDERABLES Final Resul t [facility] ([place]) 1 [facility] [place] [address] from Last 3 Months or Most Recently Relevant to Health Maintenance Insurance [facility] [address] MEDICARE ADVANTAGE Member Subscriber Plan / Payer (Ef fective 2017-Present) Name:Abhishek Ford Relation to Subscriber:Self Name:Abhishek Ford Payer ID:[id number] (NAIC) Type:MEDICARE RISK OTHER Address: [address] MEDICARE ADVANTAGE Advance Directives For more information, please contact: [phone] Documents on File Type Date Recorded Patient Slitter Cut Off Operator Expl anation ADVANCE DIRECTIVE 09/21/2021 11:34 AM [...] 9:59 AM 10/04/2023 4:25 PM Care Teams Licensed Acupuncturist Relationship Specialty Start Date End Date Heriberto Fraga MD [address] [facility] [place] [address] PCP - General Internal Medicine 12/07/23 Devin Perez MD [address] [facility] [address] [facility] [address] [place] [address] 12/22/16 Dylan Hoffman DPM [address] [place] [address] Consulting Physician Foot and Ankle Surg 07/26/23
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
[2025-03-09 20:31] LABS: Anion Gap 10 mmol/L (4-12); Chloride 100 mmol/L (98-107)
[2025-03-09] MEDS: LACTATED RINGERS 1,000 ML 999 ML IV CONT (20:42)
[2025-03-09] MEDS: MORPHINE SULFATE (*CRX) 2 MG/ML INJ IV PUSH (20:42)
[2025-03-09] MEDS: PANTOPRAZOLE SODIUM IV 40 MG VIAL IV PUSH (20:42)
[2025-03-09] MEDS: ONDANSETRON INJ 4 MG/2 ML VIAL IV PUSH (20:42)
--- NOTE | 2025-03-09 21:55 | ECG_ITS ---
Test Date: 2025-03-09 22:10:27 Measurements Intervals [place] Rate: 85 P: 45 LA: 185 QRS: -36 QRSD: 134 T: 252 QT: 368 QTc: 438 Interpretive Statements SINUS RHYTHM WITH OCCASIONAL VENTRICULAR PREMATURE COMPLEXES LEFT AXIS DEVIATION [QRS AXIS < -30] INTRAVENTRICULAR CONDUCTION DELAY [130+ ms QRS DURATION] Compared to ECG 03/09/2025 19:59:03 Ventricular premature complex(es) now present Electronically Signed On 03-10-2025 12:39:03 CDT by David Moran M.D.
[2025-03-09 22:33] VITALS: BP 167/81; PULSE 93; RESP 20; O2SAT 95
[2025-03-09 23:14] LABS: Troponin I 0.037 ng/mL (0.000-0.034)
[2025-03-10] VITALS (18 sets, daily range): BP systolic 128–173; BP diastolic 56–78; PULSE 60–102; RESP 16–22; TEMP 36.5–37.2; O2SAT 96–100; BMI 30.9
[2025-03-10] MEDS: ENOXAPARIN 120 MG/0.8 ML SYRINGE 114 MG SUB-Q (00:10)
[2025-03-10] MEDS: ASPIRIN 81 MG CHEWABLE TABLET 324 MG PO (00:10)
--- NOTE | 2025-03-10 00:30 | ECG_ITS ---
Test Date: 2025-03-10 00:36:03 Measurements Intervals Center Rate: 68 P: 62 KS: 139 QRS: -40 QRSD: 129 T: -81 QT: 374 QTc: 400 Interpretive Statements SINUS RHYTHM WITH MARKED SINUS ARRHYTHMIA LEFT AXIS DEVIATION [QRS AXIS < -30] MODERATE INTRAVENTRICULAR CONDUCTION DELAY [110+ ms QRS DURATION] ST & T-WAVE ABNORMALITY; CONSIDER ISCHEMIA Compared to ECG 03/09/2025 22:10:27 T-wave abnormality now present Ventricular premature complex(es) no longer present Electronically Signed On 03-10-2025 12:40:19 CDT by David Moran M.D.
[2025-03-10 01:10] LABS: Troponin I 0.042 ng/mL (0.000-0.034)
--- NOTE | 2025-03-10 01:12 | PM.IMHP ---
H&P: HPI History of Present Illness Date/Time: 03/10/25 01:12 Chief Complaint: Found down Narrative: 75-year-old male medical history GERD, diabetes, bipolar disorder with behavioral disturbances. He is a very poor historian at the moment. Brought in by local police department and the story is as follows: 2 days prior to admission the patient was evicted from senior living due to assaulting a [place]. Reportedly he was intoxicated and acting aggressively. Per the to police officers present in the ER, patient was found on the ground confused and he had vomited and defecated on himself. The patient reports pain all over but it appears factitious. He sleeps comfortably prior to clinicians entering the room becomes agitated when evaluated. He does not know the month, he gives unreliable answers towards his medical history, medications, drug use. Does think he had a seizure. Blood pressure on arrival 176/63 improved to 148/67. Afebrile. WBC 13.6, hemoglobin 14.7, sodium 131, BUN 22, glucose 340, lactic acid 2.6, improving no 1.6. Troponin 0.037 and then 0.042. Urinalysis with 2+ protein, glucose, ketones. Urine drug screen positive for benzodiazepines, alcohol level within normal limits. He was given Protonix, Zofran, 1 L lactated Ringer's, morphine 2 mg IV x1, aspirin 324 mg p.o. x1, Lovenox 114 mg subQ x1. Review of Systems Review of Systems: All systems reviewed & are unremarkable except as noted in HPI and below (Subjective) PMFSH Past Medical History Medical History Allergies Anxiety Arthritis Asthma Bipolar disorder with schizoaffective disorder. BPH (benign prostatic hyperplasia) Cancer Colitis Coronary artery disease Hx of MA and stent to the LAD 2006 Depression Diabetes Essential hypertension GERD (gastroesophageal reflux disease) Hx of gastrointestinal hemorrhage related to angiodysplasia Hyperlipidemia IBS (irritable bowel syndrome) MANA (obstructive sleep apnea) noncompliant with CPAP Seizures Surgical History Surgical History Hx of appendectomy Hx of fracture of ankle Rt ankle ORIF trimalleolar fx Hx of fracture of radius ORIF distal right radial fx Hx of fracture of tibia s/p nail fixation left tibia Family History Family History Father Acute myocardial infarction Social History Social History Social History: Patient resides assisted living facility called [facility] in [place]. He is been at [facility] for about 3 years. Quit tobacco 25 years ago after smoking 1.5 packs per day times 15 years. He drinks 2 scotches per day. He denies drinking more than this. He denies history of or current use of Drug use. DNR per his wishes. He does not have an individual who would make decisions for him if he is unable. Smoking packs per day: 1.5 Smoking cigarettes per day: 30.0 Years smoked: 15 Smoking pack-years: 22.50 Smoking status: Former smoker Tobacco type: cigarettes Second hand tobacco smoke exposure: No Alcohol intake: current Drinks per week: 1 Substance use: never Substance use type: does not use Do You Feel Safe in your Home?: Yes Lack of Transportation: No Lack of Food: Never True Current Housing: I Have Housing Concerned About Future Housing: No Difficulty Paying Gas/Electric Bills: No Difficulty Paying for Meds: No Currently Unemployed: No Education: Master's Degree or Higher Difficulty w/ Childcare or Family Care: No Living arrangements: long term Spiritual care concerns: No Meds Home Medications and Allergies Home Medications ?Medication ?Instructions ?Recorded ?Confirmed ?Type glimepiride 1 mg tablet (Amaryl) 1 mg PO DAILY@0800 #90 tabs 07/12/21 10/15/21 Rx fluticasone propionate 50 2 spray intranasal DAILY #16 grams 12/08/21 Rx mcg/actuation nasal spray,suspension quetiapine 300 mg tablet 300 mg PO QHS #90 tabs 12/14/21 Rx clopidogrel 75 mg tablet 75 mg PO DAILY #30 tabs 02/17/22 Rx duloxetine 30 mg capsule,delayed 30 mg PO DAILY #30 caps 02/17/22 Rx release gabapentin 600 mg tablet 600 mg PO TID #90 tabs 02/17/22 Rx metoprolol succinate 25 mg capsule 25 mg PO DAILY #30 ea 02/17/22 Rx sprinkle, ext. release 24 hr tamsulosin 0.4 mg capsule 0.4 mg PO DAILY #30 caps 02/17/22 Rx duloxetine 30 mg capsule,delayed 30 mg PO DAILY #30 caps 03/31/22 Rx release lansoprazole 30 mg capsule,delayed 30 mg PO DAILY #30 caps 03/31/22 Rx release lansoprazole 30 mg delayed 30 mg PO DAILY #30 tabs 03/31/22 Rx release,disintegrating tablet levetiracetam 500 mg tablet 500 mg PO .COMPLEX #90 tabs 03/31/22 Rx levetiracetam 500 mg tablet See Rx Instructions .Route 03/31/22 Rx .COMPLEX #90 tabs Allergies Allergy/AdvReac Type Severity Reaction Status Date / Time aspirin Allergy Unknown unknown Verified 03/31/22 17:26 Influenza Virus Vaccines Allergy Unknown unknown Verified 03/31/22 17:26 latex Allergy Unknown unknown Verified 03/31/22 17:26 monosodium glutamate Allergy Unknown Unknown Verified 03/31/22 17:26 ALLERGY INJECTIONS Allergy Mild ANAPHALIXIS Uncoded 03/31/22 17:26 Grass Allergy Unknown Unknown Uncoded 03/31/22 17:26 Vital Signs Vital Signs - 24 hr 03/09/25 17:39 03/09/25 19:04 03/09/25 19:28 Temperature Pulse Rate 57 L 73 Respiratory Rate 20 20 Blood Pressure 176/63 H 145/74 H Pulse Oximetry 100 100 Oxygen Delivery Room Air Room Air 03/09/25 22:33 03/10/25 00:15 03/10/25 00:30 Temperature Pulse Rate 93 102 H 87 Respiratory Rate 20 20 19 Blood Pressure 167/81 H 172/78 H 173/74 H Pulse Oximetry 95 97 96 Oxygen Delivery 03/10/25 00:45 Temperature 97.7 F Pulse Rate 74 Respiratory Rate 20 Blood Pressure 148/67 H Pulse Oximetry 99 Oxygen Delivery Exam Const: General: comfortable and no acute distress Other: A&O x2 HENMT: Mouth: Yes moist mucous membranes Eyes: Pupils: Equal, round and reactive pupils present Neck: Neck: supple Resp: Other: Unable to auscultate, the patient breathes very heavily while grimacing Cardio: Rate: regular rate Rhythm: regular rhythm GI: Inspection: non-distended GI Palp: Yes Soft to palpation : General: Yes bladder normal to palpation Extrem: General: no edema H&P: Results Labs Labs: Short CBC 03/09/25 Range/Units 18:20 WBC 13.6 H (4.5-10.0) K/mm3 Hgb 14.7 (14.0-18.0) g/dL Hct 44.8 (42.0-52.0) % Plt Count 152 (150-375) k/mm3 BMP 03/09/25 18:20 Sodium 131 L Potassium 4.5 Chloride 100 Carbon Dioxide 21 L BUN 22 H D Creatinine 0.91 Glucose 340 H Calcium 9.9 Cardiac Enzymes 03/09/25 03/09/25 03/10/25 Range/Units 18:20 22:28 00:25 Troponin I 0.030 0.037 H* D 0.042 H* (0.000-0.034) ng/mL Liver Function 03/09/25 Range/Units 18:20 Total Bilirubin 1.1 (0.2-1.3) mg/dL AST 38 (17-59) U/L ALT 27 (6-50) U/L Alkaline Phosphatase 85 (38-126) U/L Albumin 4.7 (3.5-5.1) g/dL Urine 03/09/25 Range/Units 19:13 Urine Color Yellow (Yellow) Urine Appearance Clear (Clear) Urine pH 6.5 (5.0-9.0) Ur Specific Smith 1.039 H (1.001-1.035) Urine Protein 2+ H (Negative) mg/dL Urine Glucose (UA) 3+ H (Negative) mg/dL Assessment and Plan Assessment and plan (1) Leukocytosis: Code(s): D72.829 - Elevated white blood cell count, unspecified Status: Acute (2) Elevated troponin: Code(s): R79.89 - Other specified abnormal findings of blood chemistry Status: Acute (3) Altered mental status: Code(s): R41.82 - Altered mental status, unspecified Status: Acute (4) Lactic acidosis: Code(s): E87.20 - Acidosis, unspecified Status: Acute Plan 75-year-old male medical history GERD, diabetes, bipolar disorder with behavioral disturbances. He is a very poor historian at the moment. Brought in by local police department and the story is as follows: 2 days prior to admission the patient was evicted from senior living due to assaulting a [place]. Reportedly he was intoxicated and acting aggressively. Per the to police officers present in the ER, patient was found on the ground confused and he had vomited and defecated on himself. The patient reports pain all over but it appears factitious. He sleeps comfortably prior to clinicians entering the room becomes agitated when evaluated. He does not know the month, he gives unreliable answers towards his medical history, medications, drug use. Does think he had a seizure. Blood pressure on arrival 176/63 improved to 148/67. Afebrile. WBC 13.6, hemoglobin 14.7, sodium 131, BUN 22, glucose 340, lactic acid 2.6, improving no 1.6. Troponin 0.037 and then 0.042. Urinalysis with 2+ protein, glucose, ketones. Urine drug screen positive for benzodiazepines, alcohol level within normal limits. He was given Protonix, Zofran, 1 L lactated Ringer's, morphine 2 mg IV x1, aspirin 324 mg p.o. x1, Lovenox 114 mg subQ x1. Chest x-ray without acute process. Head and neck CTA with no acute intracranial process. There are additional findings which should be followed up on. CT abdomen pelvis with contrast with mild esophagitis/gastritis, duodenal mucosal hyperemia, contract the gallbladder, left lower pole renal lesion, urinary bladder distension. ----- At this time the nature of the patient's confusion is unclear. The patient thinks he may have had a seizure and he is likely not had his medications since being in holding cell. Hyponatremia, lactic acidosis, leukocytosis may all be a result of his possible seizure. He was found down with vomitus and had defecated. At this time we will continue with seizure and fall precautions, Keppra 500 mg IV b.i.d.. Check Keppra level, suspected will be low. We will place a neurology consultation. If confusion persists then an MRI could be performed. Will check vitamin B12, TSH, ammonia level. It is also unclear what his baseline is with a history of bipolar disease and he has not likely received his psychotropic medications. Of note, the patient complains of pain all over but he rest comfortably. When touched lightly he jumps, when distracted and deep palpation performed he has no response. Tylenol p.r.n. for pain. Neuro checks q.4 Trend leukocytosis. Patient has no evidence of infectious origin. Lactic acidosis has resolved. Troponin elevation from 0.037-0.042. Patient has received therapeutic Lovenox. He has received aspirin 324 mg p.o. x1. Continue telemetry. Cardiology consultation completed from the ER. An EKG at 10:[address] p[address] demonstrated [address] elevations in V1 V2 V3 however they resolve shortly after. Checking postvoid bladder scan Patient wishes to be full code. Hospitalist [facility] Advance Care Plan I have confirmed that the patient's Advanced Care Plan is present, code status is documented, or surrogate decision maker is listed in patient medical record.: Yes Medication Reconciliation I have utilized all available resources to obtain, update and review the patients current medications (includes all prescriptions, OTC, herbals, cannabis, and nutritional supplements).: Yes
[2025-03-10] MEDS: levETIRAcetam 500MG/NACL 100ML 500 MG/100 ML BAG 400 MG IVPB (02:06)
[2025-03-10] MEDS: ACETAMINOPHEN 325 MG TABLET 650 MG PO ×2 (02:29→20:38)
--- NOTE | 2025-03-10 03:00 | ADMGEN ---
This patient, Abhishek Ford, was admitted to IMU Room 212-01 at 0042. Patient/family oriented to hospital policies and general routines including ID bracelet, bed and alarms, visiting hours, pain management, procedures, bathroom and other care routines, personal items, smoking policy, room service/diet, and visiting hours. Information on how to activate the Rapid Response Team has been discussed. Patient/Family are encouraged to report perceived risks to care and to ask questions if they do not understand what they are told or what they should do.
[2025-03-10 04:16] LABS: Hematocrit 40.2 % (42.0-52.0); Hemoglobin 13.0 g/dL (14.0-18.0); Immature Granulocyte Percent A 0.3 % (0-0.5); Lymphocytes Absolute Auto 1.16 K/mm3 (0.9-3.2); Mean Corpuscular HGB Conc 32.3 g/dl (32-36); Mean Corpuscular Hemoglobin 28.1 pg (26-34); Mean Corpuscular Volume 87.0 fl (80-100); Nucleated Red Blood Cells Absolute Auto 0.000 K/mm3 (0.0-0.012); Nucleated Red Blood Cells Perc 0.0 % (0.0-0.2); Platelet Count Result 123 k/mm3 (150-375); Red Blood Count 4.62 M/mm3 (4.6-6.20); White Blood Count 9.2 K/mm3 (4.5-10.0)
[2025-03-10 04:30] LABS: Ammonia < 9 umol/L (9-30)
[2025-03-10 04:46] LABS: Anion Gap 8 mmol/L (4-12); Blood Urea Nitrogen 22 mg/dL (9-20); Calcium 8.9 mg/dL (8.4-10.2); Carbon Dioxide 25 mmol/L (22-30); Chloride 99 mmol/L (98-107); Estimated CRCL calculation 79 ml/min; Estimated Glomerular Filt Rate > 60; Glucose 297 mg/dL (65-110); Magnesium 1.8 mg/dL (1.6-2.3); Potassium 3.9 mmol/L (3.4-5.0); Sodium 132 mmol/L (137-145)
[2025-03-10 04:58] LABS: Troponin I 0.047 ng/mL (0.000-0.034)
[2025-03-10 05:13] LABS: Thyroid Stimulating Hormone Reflex 3.410 uIU/mL (0.465-4.68)
[2025-03-10 05:38] LABS: Vitamin B12 165.0 pg/mL (239-931)
[2025-03-10] MEDS: ONDANSETRON INJ 4 MG/2 ML VIAL IV PUSH (06:52)
[2025-03-10] MEDS: METOPROLOL SUCCINATE EXT REL 50 MG TABCR PO (08:27)
[2025-03-10] MEDS: SPIRONOLACTONE 25 MG TABLET PO (08:27)
[2025-03-10] MEDS: TAMSULOSIN HCL 0.4 MG CAPSULE PO (08:27)
[2025-03-10] MEDS: SACUBITRIL/VALSARTAN 24-26 MG TABLET 1 TAB PO ×2 (08:27→20:34)
[2025-03-10] MEDS: CLOPIDOGREL BISULFATE 75 MG TABLET PO (08:27)
[2025-03-10] MEDS: PANTOPRAZOLE 40 MG TABLET PO (08:28)
[2025-03-10 08:40] LABS: Troponin I 0.039 ng/mL (0.000-0.034)
[2025-03-10] MEDS: CYANOCOBALAMIN INJ 1,000 MCG/ML VIAL 1000 MCG IM (09:02)
[2025-03-10] MEDS: FLUTICASONE PROPIONATE 0.05% NA SPR 16 GM BTL (*BKC) 2 SPRAY NASAL (09:09)
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
--- NOTE | 2025-03-10 11:23 | WPDNEURCNPN ---
Assessment and Plan Assessment and plan (1) Dementia of Alzheimer's type with behavioral disturbance: Code(s): G30.9 - Alzheimer's disease, unspecified; F02.818 - Dementia in other diseases classified elsewhere, unspecified severity, with other behavioral disturbance Status: Acute (2) Peripheral neuropathy: Code(s): G62.9 - Polyneuropathy, unspecified Status: Acute Assessment and Plan: patient appears to have severe peripheral neuropathy with marked atrophy of the 1st dorsal interossei on both sides and also weakness of the dorsiflexion plantar flexion of both feet. It appears that he has been on wheelchair for many years. The note from 2018 when he was seen by Dr. Pereira indicate that he is already in a wheelchair that time. (3) Diabetes mellitus with hyperglycemia: Code(s): E11.65 - Type 2 diabetes mellitus with hyperglycemia Status: Acute (4) Seizure disorder: Code(s): G40.909 - Epilepsy, unspecified, not intractable, without status epilepticus Status: Acute Assessment and Plan: The patient used to see a neurologist at [facility] with regard to seizures. Been on Keppra 750 mg twice a day however in the past he was on a higher dose. Plan The situation is indeed complex with the history given above. He has history of psychiatric problem as well as he appears to have some degree of dementia. Highly educated individual clearly has problem with the memory. In addition he has history seizure disorder and is on Keppra. Keppra can sometimes lead to aggressive behavior however it appears that he was even higher dose and he has been on this drug for more than 7 years. Hence it will be less desirable to make a change. I will suggest consider psychiatric consultation. I noted that his B12 level was found low at 165 and certainly treatment of this is very important. He has already been given 1 injection of 1000 mcg IM today. Out suggest to consider repeat injection for 2 more days and thereafter once every week for 3 weeks and then once a month however I shall leave this up to your discretion. I would suggest an EEG in with history of seizures. CT angiogram head and neck was performed did not show any large vessel occlusion. A 3.2 cm fat density right parotid mass possibly parotid type awl was prescribed any may consider an opinion from ENT. There is also a solid-appearing left thyroid mass and this may also require some attention. His liver enzymes and renal function were within normal limits. His serum glucose this morning was 297. Serum ammonia level was normal. I noted that his own Seroquel 200 mg a day. In addition is also on Plavix and Lipitor. He is not on any medications for dementia of Alzheimer's type. It should be noted that since he has history of longstanding psychiatric problems sometimes memory problem can occur in the later stage. This may require some investigation and management in near future. Biomarker testing and MRI of the brain can be done as an outpatient and treatment began wishes to pursue this. He also appears to have severe peripheral neuropathy. He may require AFO on both sides and probably with physical therapy to see if his mobility can be improved however if he has been on wheelchair-bound for several years it may be difficult to achieve. 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 He has history of diabetes mellitus. His vitamin B12 level was found to be low at 165 and has been given 1000 mcg a B12 injection today. Patient is a poor historian in part due to his underlying dementia. He states that his for start working when she was found to have a terminal illness a few years ago. He is unable to tell me his age or his current whereabouts although he does talk in seems to paying attention. No abnormal behavior noted during the course of conversation. When asked him to name 5 colors he did manage to give me 4. When asked to name 5 fruits once again he did manage to give me 4. When asked to name 5 cities he did manage to give me 5/5. The patient carries diagnosis of schizophrenia and bipolar disorder. He has history of seizure disorder and is on Keppra 750 mg twice a day he is also on major tranquilizers. There is also history of obstructive sleep apnea syndrome and is noncompliant to CPAP. Review of Systems Review of Systems: Patient denies any headache nausea vomiting. He denies any other specific symptoms. Fully she is present in the room since he was arrested. [facility] Past Medical History Medical History (Updated 03/10/25 @ 11:34 by Marcella Dove MD) Seizure disorder Peripheral neuropathy Dementia of Alzheimer's type with behavioral disturbance BPH (benign prostatic hyperplasia) Bipolar disorder with schizoaffective disorder. Depression Hx of gastrointestinal hemorrhage related to angiodysplasia MANA (obstructive sleep apnea) noncompliant with CPAP Hyperlipidemia Essential hypertension Cancer Diabetes Seizures IBS (irritable bowel syndrome) GERD (gastroesophageal reflux disease) Colitis Coronary artery disease Hx of IN and stent to the LAD 2006 Arthritis Anxiety Asthma Allergies Surgical History Surgical History Hx of fracture of ankle Rt ankle ORIF trimalleolar fx Hx of fracture of radius ORIF distal right radial fx Hx of fracture of tibia s/p nail fixation left tibia Hx of appendectomy Family History Family History Father Acute myocardial infarction Social History Social History Social History: Patient resides assisted living facility called [facility] in [place]. He is been at [facility] for about 3 years. Quit tobacco 25 years ago after smoking 1.5 packs per day times 15 years. He drinks 2 scotches per day. He denies drinking more than this. He denies history of or current use of Drug use. DNR per his wishes. He does not have an individual who would make decisions for him if he is unable. Smoking packs per day: 1.5 Smoking cigarettes per day: 30.0 Years smoked: 15 Smoking pack-years: 22.50 Smoking status: Former smoker Tobacco type: cigarettes Second hand tobacco smoke exposure: No Alcohol intake: current Drinks per week: 1 Substance use: never Substance use type: does not use Do You Feel Safe in your Home?: Yes Lack of Transportation: No Lack of Food: Never True Current Housing: I Have Housing Concerned About Future Housing: No Difficulty Paying Gas/Electric Bills: No Difficulty Paying for Meds: No Currently Unemployed: No Education: Master's Degree or Higher Difficulty w/ Childcare or Family Care: No Living arrangements: [facility] Spiritual care concerns: No Meds Home Medications and Allergies Home Medications ?Medication ?Instructions ?Recorded ?Confirmed ?Type glimepiride 1 mg tablet (Amaryl) 1 mg PO DAILY@0800 #90 tabs 07/12/21 03/10/25 Rx fluticasone propionate 50 2 spray intranasal DAILY #16 grams 12/08/21 03/10/25 Rx mcg/actuation nasal spray,suspension clopidogrel 75 mg tablet 75 mg PO DAILY #30 tabs 02/17/22 03/10/25 Rx gabapentin 600 mg tablet 600 mg PO TID #90 tabs 02/17/22 03/10/25 Rx tamsulosin 0.4 mg capsule 0.4 mg PO DAILY #30 caps 02/17/22 03/10/25 Rx albuterol sulfate 90 mcg/actuation 2 puff inhalation Q4H PRN 03/10/25 03/10/25 History aerosol inhaler shortness of breath or wheezing alprazolam 0.5 mg tablet 0.5 mg PO Q8H 03/10/25 03/10/25 History atorvastatin 40 mg tablet 40 mg PO QPM 03/10/25 03/10/25 History dapagliflozin propanediol 10 mg 10 mg PO DAILY 03/10/25 03/10/25 History tablet (Farxiga) docusate sodium 100 mg capsule 100 mg PO DAILY PRN constipation 03/10/25 03/10/25 History duloxetine 30 mg capsule,delayed 30 mg PO HS 03/10/25 03/10/25 History release duloxetine 30 mg capsule,delayed 60 mg PO DAILY 03/10/25 03/10/25 History release ergocalciferol (vitamin D2) 1,250 50,000 unit PO MONTHLY 03/10/25 03/10/25 History mcg (50,000 unit) capsule (Vitamin D2) levetiracetam 750 mg tablet 750 mg PO BID 03/10/25 03/10/25 History (Keppra) metoprolol succinate 25 mg capsule 50 mg PO DAILY 03/10/25 03/10/25 History sprinkle, ext. release 24 hr omeprazole 20 mg capsule,delayed 20 mg PO DAILY 03/10/25 03/10/25 History release quetiapine 200 mg tablet (Seroquel) 200 mg PO HS 03/10/25 03/10/25 History sacubitril 24 mg-valsartan 26 mg 1 tablet PO BID 03/10/25 03/10/25 History tablet (Entresto) sodium di- and 1 tablet PO BID 03/10/25 03/10/25 History monophosphate-potassium phos monobasic 250 mg tablet (Phospha Neutral) spironolactone 25 mg tablet 25 mg PO DAILY 03/10/25 03/10/25 History Allergies Allergy/AdvReac Type Severity Reaction Status Date / Time aspirin Allergy Unknown unknown Verified 03/31/22 17:26 Influenza Virus Vaccines Allergy Unknown unknown Verified 03/31/22 17:26 latex Allergy Unknown unknown Verified 03/31/22 17:26 monosodium glutamate Allergy Unknown Unknown Verified 03/31/22 17:26 ALLERGY INJECTIONS Allergy Mild ANAPHALIXIS Uncoded 03/31/22 17:26 Grass Allergy Unknown Unknown Uncoded 03/31/22 17:26 Vital Signs Vital Signs - 24 hr 03/09/25 17:39 03/09/25 19:04 03/09/25 19:28 Temperature Pulse Rate 57 L 73 Respiratory Rate 20 20 Blood Pressure 176/63 H 145/74 H Pulse Oximetry 100 100 Oxygen Delivery Room Air Room Air Fraction of Inspired Oxygen 03/09/25 22:33 03/10/25 00:15 03/10/25 00:30 Temperature Pulse Rate 93 102 H 87 Respiratory Rate 20 20 19 Blood Pressure 167/81 H 172/78 H 173/74 H Pulse Oximetry 95 97 96 Oxygen Delivery Fraction of Inspired Oxygen 03/10/25 00:45 03/10/25 00:45 03/10/25 00:50 Temperature 97.7 F Pulse Rate 74 77 Respiratory Rate 20 Blood Pressure 148/67 H Pulse Oximetry 99 Oxygen Delivery Room Air Fraction of Inspired Oxygen 03/10/25 02:00 03/10/25 02:14 03/10/25 04:00 Temperature Pulse Rate 83 60 85 Respiratory Rate 20 Blood Pressure Pulse Oximetry 97 Oxygen Delivery Room Air Fraction of Inspired Oxygen 21 03/10/25 04:00 03/10/25 04:30 03/10/25 06:00 Temperature 97.8 F Pulse Rate 80 79 Respiratory Rate 16 Blood Pressure 139/67 Pulse Oximetry 97 Oxygen Delivery Room Air Fraction of Inspired Oxygen 03/10/25 07:33 03/10/25 08:00 03/10/25 08:27 Temperature 98.7 F Pulse Rate 66 91 Respiratory Rate 22 H Blood Pressure 165/67 H Pulse Oximetry 99 Oxygen Delivery Room Air Fraction of Inspired Oxygen Exam Const: General: cooperative, well developed and alert Other: Is oriented to self but cannot tell me his correct age or the where he lives at. Unable to give me 5 colors or 5 fruits but did give me 5/5 cities. No aphasia or dysarthria. He does seem to attentive and trying to cooperate. HENMT: Head: atraumatic Mouth: Yes oropharynx normal Eyes: Alignment and Position: position normal Pupils: Equal, round and reactive pupils present EOM: EOMs intact bilaterally Neck: Neck: supple Resp: Effort & Inspection: normal respiratory effort Cardio: Rate: regular rate Rhythm: regular rhythm Skin: General skin exam: normal color Neuro: General: Unable to assess gait Cranial nerves: Yes CN's II-XII intact bilaterally, Yes facial sensation intact/muscles of mastication intact, Yes Equal, round and reactive pupils present, Yes Bilaterally intact EOM present, Yes Nystagmus not present, Yes facial symmetry, Yes Midline tongue present and Yes Ability to bilaterally elevate shoulders present Speech: normal speech Motor exam (neuro): Motor abnormalities not present and Tremors during motor activity present Coordination: [id number] test normal and Normal rapid alternating movements of the distal upper extremity present (Neuro) Other: Patient has significant atrophy of the 1st dorsal interossei and also mild weakness in ulnar distribution both hands. He is unable to put forth dorsiflexion or plantar flexion of his ankles or toes. He states that he has been in a wheelchair for last 3 years. History of diabetes mellitus for several years. There was a note from Dr. Pereira in 2019 where it was indicated that he was and living in [facility]. Even at that time was in wheelchair. It was also noted that he was seeing a neurologist at [facility] for seizure disorder according to [address] of [address] notes from Dr. Pereira. Results Labs 03/10/25 04:09 03/10/25 04:09 Labs: Short CBC 03/09/25 03/10/25 Range/Units 18:20 04:09 WBC 13.6 H 9.2 (4.5-10.0) K/mm3 Hgb 14.7 13.0 L (14.0-18.0) g/dL Hct 44.8 40.2 L (42.0-52.0) % Plt Count 152 123 L (150-375) k/mm3 BMP 03/09/25 03/10/25 18:20 04:09 Sodium 131 L 132 L Potassium 4.5 3.9 Chloride 100 99 Carbon Dioxide 21 L 25 BUN 22 H D 22 H Creatinine 0.91 0.97 Glucose 340 H 297 H Calcium 9.9 8.9 Cardiac Enzymes 03/09/25 03/09/25 03/10/25 Range/Units 18:20 22:28 00:25 Troponin I 0.030 0.037 H* D 0.042 H* (0.000-0.034) ng/mL 03/10/25 03/10/25 Range/Units 04:09 07:47 Troponin I 0.047 H* 0.039 H* (0.000-0.034) ng/mL Liver Function 03/09/25 Range/Units 18:20 Total Bilirubin 1.1 (0.2-1.3) mg/dL AST 38 (17-59) U/L ALT 27 (6-50) U/L Alkaline Phosphatase 85 (38-126) U/L Albumin 4.7 (3.5-5.1) g/dL Urine 03/09/25 Range/Units 19:13 Urine Color Yellow (Yellow) Urine Appearance Clear (Clear) Urine pH 6.5 (5.0-9.0) Ur Specific Thor 1.039 H (1.001-1.035) Urine Protein 2+ H (Negative) mg/dL Urine Glucose (UA) 3+ H (Negative) mg/dL
[2025-03-10] MEDS: SUCRALFATE SUSP 100 MG/ML 10 ML UDC 1000 MG PO ×3 (12:18→20:33)
--- NOTE | 2025-03-10 13:46 | P.PNIM_ITS ---
Progress Note: A&P Assessment and Plan (1) Leukocytosis: Code(s): D72.829 - Elevated white blood cell count, unspecified Status: Acute (2) Elevated troponin: Code(s): R79.89 - Other specified abnormal findings of blood chemistry Status: Acute (3) Altered mental status: Code(s): R41.82 - Altered mental status, unspecified Status: Acute (4) Lactic acidosis: Code(s): E87.20 - Acidosis, unspecified Status: Acute Plan Elevated troponin ECHO pending, Trend troponin Cardiology consulted Possible Seizure EEG, Neurology on board Continue Keppra 750mg IV monitor Abd pain ? Esophagitis/Gastritis CT AP showed Esophagitis/Gastritis, Duodenal mucosal hyperemia IV Protonix and Sucralfate abd tenderness on exam GI consulted R/o Cholecystitis Gallbladder hyperemia US liver Thyroid mass US showed suspicious Biopsy pending Parotid mass CT reviewed MRI pending ENT consulted Cardiomyopathy EF 22%. Entresto, Farxiga, Spironolactone, Tropol XL and Lasix cardiology following DVT prophylaxis on Sq Lovenox Subjective Date/time seen: 03/10/25 13:46 Interval history: Comfortable at bedside EEG, Neurology and cardiology consulted. Review of Systems Review of Systems: All systems reviewed & are unremarkable except as noted in HPI and below (Subjective) Exam Const: General: comfortable and no acute distress Other: A&O x2 HENMT: Mouth: Yes moist mucous membranes Eyes: Pupils: Equal, round and reactive pupils present Neck: Neck: supple Resp: Other: Unable to auscultate, the patient breathes very heavily while grimacing Cardio: Rate: regular rate Rhythm: regular rhythm GI: Inspection: non-distended : General: Yes bladder normal to palpation Neuro: Cranial nerves: Yes Equal, round and reactive pupils present Extrem: General: no edema Objective Data Vital Signs Vital Signs: Vital Signs - 24 hr 03/09/25 17:39 03/09/25 19:04 03/09/25 19:28 Temperature Pulse Rate 57 L 73 Respiratory Rate 20 20 Blood Pressure 176/63 H 145/74 H Pulse Oximetry 100 100 Oxygen Delivery Room Air Room Air Fraction of Inspired Oxygen 03/09/25 22:33 03/10/25 00:15 03/10/25 00:30 Temperature Pulse Rate 93 102 H 87 Respiratory Rate 20 20 19 Blood Pressure 167/81 H 172/78 H 173/74 H Pulse Oximetry 95 97 96 Oxygen Delivery Fraction of Inspired Oxygen 03/10/25 00:45 03/10/25 00:45 03/10/25 00:50 Temperature 97.7 F Pulse Rate 74 77 Respiratory Rate 20 Blood Pressure 148/67 H Pulse Oximetry 99 Oxygen Delivery Room Air Fraction of Inspired Oxygen 03/10/25 02:00 03/10/25 02:14 03/10/25 04:00 Temperature Pulse Rate 83 60 85 Respiratory Rate 20 Blood Pressure Pulse Oximetry 97 Oxygen Delivery Room Air Fraction of Inspired Oxygen 21 03/10/25 04:00 03/10/25 04:30 03/10/25 06:00 Temperature 97.8 F Pulse Rate 80 79 Respiratory Rate 16 Blood Pressure 139/67 Pulse Oximetry 97 Oxygen Delivery Room Air Fraction of Inspired Oxygen 03/10/25 07:33 03/10/25 08:00 03/10/25 08:27 Temperature 98.7 F Pulse Rate 66 91 Respiratory Rate 22 H Blood Pressure 165/67 H Pulse Oximetry 99 Oxygen Delivery Room Air Fraction of Inspired Oxygen 03/10/25 12:00 03/10/25 12:00 Temperature 98 F Pulse Rate 80 Respiratory Rate 18 Blood Pressure 128/56 L Pulse Oximetry 97 Oxygen Delivery Room Air Fraction of Inspired Oxygen Intake/Output Intake/Output: Intake & Output 03/07/25 03/08/25 03/09/25 03/10/25 23:59 23:59 23:59 23:59 Intake Total 1000 525 Output Total 700 Balance 1000 -175 Meds/Results Medications: Active Medications Generic Name Dose Route Start Last Admin Trade Name Freq PRN Reason Stop Dose Admin Acetaminophen 650 mg 03/10/25 02:10 03/10/25 02:29 Acetaminophen 325 Mg Tablet PO 650 mg Q4H PRN Administration Mild Pain (1-3) or Fever Albuterol 2 puff 03/10/25 03:51 Albuterol Sulfate (*Sp) Aerosol 1 Puff INHALATION Q4H PRN shortness of breath or wheezing Atorvastatin Calcium 40 mg 03/10/25 21:00 Atorvastatin 40 Mg Tablet PO HS SCOUT Clopidogrel Bisulfate 75 mg 03/10/25 09:00 03/10/25 08:27 Clopidogrel Bisulfate 75 Mg Tablet PO 75 mg DAILY SCOUT Administration Docusate Sodium 100 mg 03/10/25 03:51 Docusate Sodium 100 Mg Capsule PO DAILY PRN constipation Duloxetine HCl 30 mg 03/10/25 03:55 03/10/25 04:31 Duloxetine Hcl 30 Mg Capsule. PO 30 mg HS SCOUT Administration Duloxetine HCl 60 mg 03/10/25 09:00 03/10/25 08:28 Duloxetine Hcl 30 Mg Capsule. PO 60 mg DAILY SCOUT Administration Fluticasone Propionate 2 spray 03/10/25 09:00 03/10/25 09:09 Fluticasone Propionate 0.05% Na Spr 16 Gm Btl (*Bkc) NASAL 2 spray DAILY SCOUT Administration Levetiracetam 750 mg 03/10/25 09:00 03/10/25 08:27 Levetiracetam 250 Mg Tablet PO 750 mg Q12HR SCOUT Administration Metoprolol Succinate 50 mg 03/10/25 09:00 03/10/25 08:27 Metoprolol Succinate Ext Rel 50 Mg Tabcr PO 50 mg DAILY SCOUT Administration Ondansetron HCl 4 mg 03/10/25 06:19 03/10/25 06:52 Ondansetron Inj 4 Mg/2 Ml Vial IV PUSH 4 mg Q6H PRN Administration Nausea And Vomiting Pantoprazole Sodium 40 mg 03/10/25 21:00 Pantoprazole Sodium Iv 40 Mg Vial IV PUSH Q12HR SCOUT Quetiapine Fumarate 200 mg 03/10/25 21:00 Quetiapine Fumarate 100 Mg Tablet PO HS SCOUT Sacubitril/Valsartan 1 tab 03/10/25 09:00 03/10/25 08:27 Sacubitril/Valsartan 24-26 Mg Tablet PO 1 tab Q12HR SCOUT Administration Spironolactone 25 mg 03/10/25 09:00 03/10/25 08:27 Spironolactone 25 Mg Tablet PO 25 mg DAILY SCOUT Administration Sucralfate 1,000 mg 03/10/25 11:30 03/10/25 12:18 Sucralfate Susp 100 Mg/Ml 10 Ml Udc PO 1,000 mg ACHS SCOUT Administration Tamsulosin HCl 0.4 mg 03/10/25 09:00 03/10/25 08:27 Tamsulosin Hcl 0.4 Mg Capsule PO 0.4 mg DAILY SCOUT Administration Radiology Results: ITS Impressions Chest X-Ray 03/09/25 19:35 IMPRESSION: No acute cardiopulmonary process. Head/Neck CTA 03/09/25 20:31 IMPRESSION: No acute intracranial process. No large vessel intracranial occlusion, high-grade intracranial stenosis, or aneurysm. No carotid or vertebral artery occlusion, dissection, or significant stenosis. 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 5.4 mostly solid-appearing left thyroid mass, recommend nonemergent outpatient thyroid ultrasound for further evaluation. Abdomen/Pelvis CT 03/09/25 20:59 IMPRESSION: Mild esophagitis/gastritis. Contracted gallbladder which limits evaluation. Gallbladder mucosal hyperemia may reflect a degree of inflammatory change. Duodenal mucosal hyperemia, may represent mild inflammatory change. Indeterminate density left lower pole renal lesion, stable in size and morp hology since the prior examination in 2020, presumably a hemorrhagic or proteinaceous cyst. Urinary bladder distention with wall thickening. May be secondary to outlet obstruction from prostatomegaly. Correlate with urinalysis and symptoms of urinary retention. Thyroid Ultrasound 03/10/25 11:13 IMPRESSION: 1. Solid left thyroid mass which is suspicious. Ultrasound-guided fine-needle aspiration biopsy recommended. Labs Labs: Laboratory Results - last 24 hr 03/09/25 03/09/25 03/09/25 18:20 19:13 19:31 WBC 13.6 H RBC 5.24 Hgb 14.7 Hct 44.8 MCV 85.5 MCH 28.1 MCHC 32.8 RDW 16.4 H Plt Count 152 MPV 10.6 H Immature Gran % (Auto) 0.4 Neut % (Auto) 82.7 H Lymph % (Auto) 7.9 L [place] % (Auto) 8.8 H Eos % (Auto) 0.0 Baso % (Auto) 0.2 Lymph # (Auto) 1.07 [place] # (Auto) 1.2 H Eos # (Auto) 0.0 Baso # (Auto) 0.0 Abs Immat Gran (auto) 0.06 H Absolute Neuts (auto) 11.2 H Absolute Nucleated RBC 0.000 Nucleated RBC % 0.0 Sodium 131 L Potassium 4.5 Chloride 100 Carbon Dioxide 21 L Anion Gap 10 BUN 22 H D Creatinine 0.91 Estim Creat Clear Calc 85 Estimated GFR > 60 Glucose 340 H Lactic Acid 2.6 H Calcium 9.9 Magnesium Total Bilirubin 1.1 AST 38 ALT 27 Alkaline Phosphatase 85 Ammonia Troponin I 0.030 Total Protein 8.0 Albumin 4.7 Vitamin B12 TSH 3.130 TSH (Reflex) Urine Color Yellow Urine Appearance Clear Urine pH 6.5 Ur Specific [place] 1.039 H Urine Protein 2+ H Urine Glucose (UA) 3+ H Urine Ketones 1+ H Ur Blood (Man) Trace Urine Nitrate Negative Urine Bilirubin Negative Urine Urobilinogen 1.0 Leukocyte Esterase Rfl Negative Urine RBC 3-5 H Urine WBC 0-5 Ur Squamous Epith Cells None seen Urine Bacteria None seen Urine Casts 0-2 Salicylates < 1.0 L Urine Opiates Screen Negative Urine Methadone Screen Negative Acetaminophen < 10 L Ur Barbiturates Screen Negative Ur Phencyclidine Scrn Negative Ur Amphetamine Screen Negative U Benzodiazepines Scrn Positive A Urine Cocaine Screen Negative U Cannabinoids Screen Negative Ethyl Alcohol < 10 03/09/25 03/10/25 03/10/25 22:28 00:25 04:09 WBC 9.2 RBC 4.62 Hgb 13.0 L Hct 40.2 L MCV 87.0 MCH 28.1 MCHC 32.3 RDW 16.5 H Plt Count 123 L MPV 10.1 Immature Gran % (Auto) 0.3 Neut % (Auto) 75.2 H Lymph % (Auto) 12.6 L [place] % (Auto) 11.4 H Eos % (Auto) 0.2 Baso % (Auto) 0.3 Lymph # (Auto) 1.16 [place] # (Auto) 1.1 H Eos # (Auto) 0.0 Baso # (Auto) 0.0 Abs Immat Gran (auto) 0.03 Absolute Neuts (auto) 6.9 H Absolute Nucleated RBC 0.000 Nucleated RBC % 0.0 Sodium 132 L Potassium 3.9 Chloride 99 Carbon Dioxide 25 Anion Gap 8 BUN 22 H Creatinine 0.97 Estim Creat Clear Calc 79 Estimated GFR > 60 Glucose 297 H Lactic Acid 1.6 Calcium 8.9 Magnesium 1.8 Total Bilirubin AST ALT Alkaline Phosphatase Ammonia < 9 L Troponin I 0.037 H* D 0.042 H* 0.047 H* Total Protein Albumin Vitamin B12 165.0 L TSH TSH (Reflex) 3.410 Urine Color Urine Appearance Urine pH Ur Specific [place] Urine Protein Urine Glucose (UA) Urine Ketones Ur Blood (Man) Urine Nitrate Urine Bilirubin Urine Urobilinogen Leukocyte Esterase Rfl Urine RBC Urine WBC Ur Squamous Epith Cells Urine Bacteria Urine Casts Salicylates Urine Opiates Screen Urine Methadone Screen Acetaminophen Ur Barbiturates Screen Ur Phencyclidine Scrn Ur Amphetamine Screen U Benzodiazepines Scrn Urine Cocaine Screen U Cannabinoids Screen Ethyl Alcohol 03/10/25 07:47 WBC RBC Hgb Hct MCV MCH MCHC RDW Plt Count MPV Immature Gran % (Auto) Neut % (Auto) Lymph % (Auto) [place] % (Auto) Eos % (Auto) Baso % (Auto) Lymph # (Auto) [place] # (Auto) Eos # (Auto) Baso # (Auto) Abs Immat Gran (auto) Absolute Neuts (auto) Absolute Nucleated RBC Nucleated RBC % Sodium Potassium Chloride Carbon Dioxide Anion Gap BUN Creatinine Estim Creat Clear Calc Estimated GFR Glucose Lactic Acid Calcium Magnesium Total Bilirubin AST ALT Alkaline Phosphatase Ammonia Troponin I 0.039 H* Total Protein Albumin Vitamin B12 TSH TSH (Reflex) Urine Color Urine Appearance Urine pH Ur Specific [place] Urine Protein Urine Glucose (UA) Urine Ketones Ur Blood (Man) Urine Nitrate Urine Bilirubin Urine Urobilinogen Leukocyte Esterase Rfl Urine RBC Urine WBC Ur Squamous Epith Cells Urine Bacteria Urine Casts Salicylates Urine Opiates Screen Urine Methadone Screen Acetaminophen Ur Barbiturates Screen Ur Phencyclidine Scrn Ur Amphetamine Screen U Benzodiazepines Scrn Urine Cocaine Screen U Cannabinoids Screen Ethyl Alcohol
[2025-03-10] MEDS: PIPERACILLIN/TAZOBACTAM SOD 3.375 GM in SODIUM CHLORIDE 0.9% IV 50 ML 100 ML IVPB ×2 (18:00→23:30)
[2025-03-10] MEDS: PANTOPRAZOLE SODIUM IV 40 MG VIAL IV PUSH (20:33)
[2025-03-10] MEDS: ATORVASTATIN 40 MG TABLET PO (20:34)
[2025-03-11] VITALS (7 sets, daily range): BP systolic 116–152; BP diastolic 56–76; PULSE 69–78; RESP 15–22; TEMP 35.7–37.1; O2SAT 95–98
--- NOTE | 2025-03-11 01:27 | PC.NURSE ---
pt refusing to wear assurance officer, pt was educated on why assurance officer is important, pt still refuses to wear monitor
[2025-03-11 04:07] LABS: Hematocrit 38.4 % (42.0-52.0); Hemoglobin 12.3 g/dL (14.0-18.0); Immature Granulocyte Percent A 0.4 % (0-0.5); Immature Platelet Fraction Pct 3.5 % (0.9-11.2); Lymphocytes Absolute Auto 1.21 K/mm3 (0.9-3.2); Mean Corpuscular HGB Conc 32.0 g/dl (32-36); Mean Corpuscular Hemoglobin 28.2 pg (26-34); Mean Corpuscular Volume 88.1 fl (80-100); Nucleated Red Blood Cells Absolute Auto 0.000 K/mm3 (0.0-0.012); Nucleated Red Blood Cells Perc 0.0 % (0.0-0.2); Platelet Count Result 113 k/mm3 (150-375); Red Blood Count 4.36 M/mm3 (4.6-6.20); White Blood Count 6.8 K/mm3 (4.5-10.0)
[2025-03-11 04:31] LABS: Alanine Aminotransferase 20 U/L (6-50); Albumin Level 3.8 g/dL (3.5-5.1); Alkaline Phosphatase 66 U/L (38-126); Anion Gap 6 mmol/L (4-12); Aspartate Amino Transferase 26 U/L (17-59); Bilirubin,Total 0.9 mg/dL (0.2-1.3); Blood Urea Nitrogen 24 mg/dL (9-20); Calcium 8.4 mg/dL (8.4-10.2); Carbon Dioxide 26 mmol/L (22-30); Chloride 99 mmol/L (98-107); Estimated CRCL calculation 78 ml/min; Estimated Glomerular Filt Rate > 60; Glucose 269 mg/dL (65-110); Magnesium 1.8 mg/dL (1.6-2.3); Potassium 3.4 mmol/L (3.4-5.0); Sodium 131 mmol/L (137-145); Total Protein 6.3 g/dL (6.3-8.2)
[2025-03-11] MEDS: PIPERACILLIN/TAZOBACTAM SOD 3.375 GM in SODIUM CHLORIDE 0.9% IV 50 ML 100 ML IVPB ×2 (05:34→11:40)
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
[2025-03-11] MEDS: PANTOPRAZOLE SODIUM IV 40 MG VIAL IV PUSH ×2 (09:05→20:42)
[2025-03-11] MEDS: CYANOCOBALAMIN INJ 1,000 MCG/ML VIAL 1000 MCG IM (09:05)
[2025-03-11] MEDS: ENOXAPARIN 40 MG/0.4 ML SYRINGE SUB-Q (09:05)
[2025-03-11] MEDS: CLOPIDOGREL BISULFATE 75 MG TABLET PO (09:06)
[2025-03-11] MEDS: SPIRONOLACTONE 25 MG TABLET PO (09:06)
[2025-03-11] MEDS: SACUBITRIL/VALSARTAN 24-26 MG TABLET 1 TAB PO ×2 (09:06→20:42)
[2025-03-11] MEDS: METOPROLOL SUCCINATE EXT REL 50 MG TABCR PO (09:06)
[2025-03-11] MEDS: TAMSULOSIN HCL 0.4 MG CAPSULE PO (09:07)
[2025-03-11] MEDS: MAGNESIUM CITRATE 300 ML BTL PO (11:39)
[2025-03-11] MEDS: SUCRALFATE SUSP 100 MG/ML 10 ML UDC 1000 MG PO ×3 (11:40→20:41)
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
--- NOTE | 2025-03-11 13:49 | ADMGEN ---
This patient, Abhishek Ford, was transferred to [address] [place] [address] Room 305-02 at 1325. Patient oriented to hospital policies and general routines including ID bracelet, bed and alarms, visiting hours, pain management, procedures, bathroom and other care routines, personal items, smoking policy, room service/diet, and visiting hours. Information on how to activate the Rapid Response Team has been discussed. Patient/Family are encouraged to report perceived risks to care and to ask questions if they do not understand what they are told or what they should do.
[2025-03-11 14:39] LABS: Lipase 85 U/L (23-300)
--- NOTE | 2025-03-11 15:12 | WPDNEUROLOGY ---
Neurology EEG Report General Information Date of Study: 03/10/25 TEST EEG DIAGNOSIS Possible seizures CONDITION OF RECORDING drowsy and asleep. EEG NUMBER [id number] CLINICAL HISTORY 75 years old reportedly became aggressive and became confused at the group home. EEG DESCRIPTION Whole record consists of low to medium voltage 5 to 7 hertz per 2nd theta activity admixed with low to medium voltage 3 to 4 hertz per 2nd delta activity. Bilateral symmetrical sleep activity is noted with symmetrical sleep spindles. Photic stimulation done. Hyperventilation not done. There is no evidence of any paroxysmal activity throughout the tracing. IMPRESSION Abnormal record due to the presence of bihemispheric theta and delta activity without evidence of any normal activity particularly Posteriorly. Clinical correlation recommended as this eeg not diagnostic of seizure disorder or any focal abnormality but could be compatible with ongoing neuro degenerative process or postictal state.
[2025-03-11] MEDS: ATORVASTATIN 40 MG TABLET PO (20:42)
[2025-03-12 05:57] VITALS: BP 147/68; PULSE 63; RESP 16; TEMP 36.4; O2SAT 97
[2025-03-12] MEDS: SUCRALFATE SUSP 100 MG/ML 10 ML UDC 1000 MG PO ×4 (06:02→21:43)
[2025-03-12 06:33] LABS: Hematocrit 39.3 % (42.0-52.0); Hemoglobin 12.5 g/dL (14.0-18.0); Immature Granulocyte Percent A 0.6 % (0-0.5); Immature Platelet Fraction Pct 4.7 % (0.9-11.2); Lymphocytes Absolute Auto 1.25 K/mm3 (0.9-3.2); Mean Corpuscular HGB Conc 31.8 g/dl (32-36); Mean Corpuscular Hemoglobin 28.3 pg (26-34); Mean Corpuscular Volume 89.1 fl (80-100); Nucleated Red Blood Cells Absolute Auto 0.000 K/mm3 (0.0-0.012); Nucleated Red Blood Cells Perc 0.0 % (0.0-0.2); Platelet Count Result 113 k/mm3 (150-375); Red Blood Count 4.41 M/mm3 (4.6-6.20); White Blood Count 6.7 K/mm3 (4.5-10.0)
[2025-03-12 06:58] LABS: Alanine Aminotransferase 18 U/L (6-50); Albumin Level 3.7 g/dL (3.5-5.1); Alkaline Phosphatase 68 U/L (38-126); Anion Gap 7 mmol/L (4-12); Aspartate Amino Transferase 25 U/L (17-59); Bilirubin,Total 0.6 mg/dL (0.2-1.3); Blood Urea Nitrogen 21 mg/dL (9-20); Calcium 8.4 mg/dL (8.4-10.2); Carbon Dioxide 27 mmol/L (22-30); Chloride 101 mmol/L (98-107); Estimated CRCL calculation 89 ml/min; Estimated Glomerular Filt Rate > 60; Glucose 269 mg/dL (65-110); Magnesium 2.5 mg/dL (1.6-2.3); Potassium 3.6 mmol/L (3.4-5.0); Sodium 135 mmol/L (137-145); Total Protein 6.4 g/dL (6.3-8.2)
[2025-03-12 08:00] VITALS: O2SAT 97
[2025-03-12 08:49] LABS: Creatine Kinase 289 U/L (55-170)
[2025-03-12] MEDS: ENOXAPARIN 40 MG/0.4 ML SYRINGE SUB-Q (09:34)
[2025-03-12] MEDS: CYANOCOBALAMIN INJ 1,000 MCG/ML VIAL 1000 MCG IM (09:34)
[2025-03-12] MEDS: PANTOPRAZOLE SODIUM IV 40 MG VIAL IV PUSH (09:34)
[2025-03-12 09:35] VITALS: PULSE 65
[2025-03-12] MEDS: METOPROLOL SUCCINATE EXT REL 50 MG TABCR PO (09:35)
[2025-03-12] MEDS: CLOPIDOGREL BISULFATE 75 MG TABLET PO (09:35)
[2025-03-12] MEDS: SACUBITRIL/VALSARTAN 24-26 MG TABLET 1 TAB PO ×2 (09:35→21:42)
[2025-03-12] MEDS: SPIRONOLACTONE 25 MG TABLET PO (09:36)
[2025-03-12] MEDS: TAMSULOSIN HCL 0.4 MG CAPSULE PO (09:36)
[2025-03-12] MEDS: FLUTICASONE PROPIONATE 0.05% NA SPR 16 GM BTL (*BKC) 2 SPRAY NASAL (09:36)
[2025-03-12 10:07] LABS: Hemoglobin A1C 9.7 % (<5.7)
[2025-03-12 16:00] VITALS: BP 155/73; PULSE 68; RESP 20; TEMP 37.2; O2SAT 98
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
--- NOTE | 2025-03-12 18:55 | WPDGIPROGNO ---
Progress Note: A&P Assessment and Plan (1) Abnormal digestive system diagnostic imaging: Code(s): R93.3 - Abnormal findings on diagnostic imaging of other parts of digestive tract Status: Acute Assessment and Plan: incidental finding of possible esophagitis however he is eating, abdomen is comfortable no acute indication of scope now unless any changes here with confusion, elevated lactic acidosis, etc- this has improved will follow as needed (2) Cardiomyopathy: Code(s): I42.9 - Cardiomyopathy, unspecified Status: Acute (3) Lactic acidosis: Code(s): E87.20 - Acidosis, unspecified Status: Acute Assessment and Plan: resolved (4) Seizure disorder: Code(s): G40.909 - Epilepsy, unspecified, not intractable, without status epilepticus Status: Acute Assessment and Plan: by neurologist (5) Acute alteration in mental status: Code(s): R41.82 - Altered mental status, unspecified Status: Acute (6) Dementia of Alzheimer's type with behavioral disturbance: Code(s): G30.9 - Alzheimer's disease, unspecified; F02.818 - Dementia in other diseases classified elsewhere, unspecified severity, with other behavioral disturbance Status: Acute (7) Abdominal pain: Code(s): R10.9 - Unspecified abdominal pain Status: Acute Subjective Date/time seen: 03/12/25 18:55 Interval history: he is eating, comfortable no acute issues Review of Systems Review of Systems: All systems reviewed & are unremarkable except as noted in HPI and below Exam Const: General: comfortable and no acute distress Other: A&O x2 HENMT: Mouth: Yes moist mucous membranes Eyes: Sclera: sclerae normal Neck: Neck: supple Cardio: Rate: regular rate Rhythm: regular rhythm GI: Inspection: non-distended GI Palp: Yes Soft to palpation and No Guarding due to palpation present (GI) Auscultation: normal bowel sounds : General: Yes bladder normal to palpation Skin: General skin exam: normal color Neuro: Speech: normal speech Extrem: General: no edema Psych: Attitude: not belligerent Objective Data Vital Signs Vital Signs: Vital Signs - 24 hr 03/11/25 20:40 03/11/25 21:51 03/12/25 05:57 Temperature 97.0 F L 97.6 F Pulse Rate 78 63 Respiratory Rate 16 16 Blood Pressure 143/73 H 147/68 H Pulse Oximetry 96 96 97 Oxygen Delivery Room Air Fraction of Inspired Oxygen 21 03/12/25 08:00 03/12/25 09:35 03/12/25 11:33 Temperature Pulse Rate 65 Respiratory Rate Blood Pressure Pulse Oximetry 97 Oxygen Delivery Room Air Room Air Fraction of Inspired Oxygen 03/12/25 11:52 03/12/25 16:00 Temperature 98.9 F Pulse Rate 68 Respiratory Rate 20 Blood Pressure 155/73 H Pulse Oximetry 98 Oxygen Delivery Room Air Fraction of Inspired Oxygen Intake/Output Intake/Output: Intake & Output 03/09/25 03/10/25 03/11/25 03/12/25 23:59 23:59 23:59 23:59 Intake Total 1000 417 015 9974 Output Total 5804 603 3075 Balance 1000 535 -180 1290 Meds/Results Medications: Active Medications Generic Name Dose Route Start Last Admin Trade Name Freq PRN Reason Stop Dose Admin Acetaminophen 650 mg 03/10/25 02:10 03/10/25 20:38 Acetaminophen 325 Mg Tablet PO 650 mg Q4H PRN Administration Mild Pain (1-3) or Fever Albuterol 2 puff 03/10/25 03:51 Albuterol Sulfate (*Sp) Aerosol 1 Puff INHALATION Q4H PRN shortness of breath or wheezing Atorvastatin Calcium 40 mg 03/10/25 21:00 03/11/25 20:42 Atorvastatin 40 Mg Tablet PO 40 mg HS SCOUT Administration Clopidogrel Bisulfate 75 mg 03/10/25 09:00 03/12/25 09:35 Clopidogrel Bisulfate 75 Mg Tablet PO 75 mg DAILY SCOUT Administration Dextrose 12.5 gm 03/12/25 18:46 Dextrose 50% 25 Gm/50 Ml Syringe IV PUSH PRN PRN Hypoglycemia Protocol Docusate Sodium 100 mg 03/10/25 03:51 Docusate Sodium 100 Mg Capsule PO DAILY PRN constipation Duloxetine HCl 30 mg 03/10/25 03:55 03/11/25 20:41 Duloxetine Hcl 30 Mg Capsule.Dr PO 30 mg HS SCOUT Administration Duloxetine HCl 60 mg 03/10/25 09:00 03/12/25 09:35 Duloxetine Hcl 30 Mg Capsule.Dr PO 60 mg DAILY SCOUT Administration Enoxaparin Sodium 40 mg 03/11/25 09:00 03/12/25 09:34 Enoxaparin 40 Mg/0.4 Ml Syringe SUB-Q 40 mg DAILY SCOUT Administration Fluticasone Propionate 2 spray 03/10/25 09:00 03/12/25 09:36 Fluticasone Propionate 0.05% Na Spr 16 Gm Btl (*Bkc) NASAL 2 spray DAILY SCOUT Administration Glucagon 1 mg 03/12/25 18:46 Glucagon For Inj 1 Mg Vial IM PRN PRN Hypoglycemia Protocol Glucose 15 gm 03/12/25 18:46 Glucose Oral Gel 15 Gm Of Glucse In 37.5 Gm Tube PO PRN PRN Hypoglycemia Protocol Dextrose 1,000 mls @ 100 mls/hr 03/12/25 18:46 Dextrose 5% 1,000 Ml IVPB PRN PRN Hypoglycemia Protocol Insulin Aspart 4 - 8 units 03/13/25 08:00 Insulin Aspart (*Bkc) 100 Units/Ml SUB-Q TIDWM SCOUT Protocol Insulin Glargine 12 units 03/12/25 21:00 Insulin Glargine (*Bkc) 100 Units/Ml SUB-Q HS SCOUT Levetiracetam 750 mg 03/10/25 09:00 03/12/25 09:36 Levetiracetam 250 Mg Tablet PO 750 mg Q12HR SCOUT Administration Metoprolol Succinate 50 mg 03/10/25 09:00 03/12/25 09:35 Metoprolol Succinate Ext Rel 50 Mg Tabcr PO 50 mg DAILY SCOUT Administration Ondansetron HCl 4 mg 03/10/25 06:19 03/10/25 06:52 Ondansetron Inj 4 Mg/2 Ml Vial IV PUSH 4 mg Q6H PRN Administration Nausea And Vomiting Pantoprazole Sodium 40 mg 03/12/25 21:00 Pantoprazole 40 Mg Tablet PO Q12HR SCOUT Perflutren Lipid Microsphere 0 ml 03/12/25 07:32 Perflutren Lipid Microspheres 1.5 Ml Vial Diluted To 10 Ml Total Volume IV PUSH 03/15/25 07:32 ONCE PRN adequate visualization Protocol Polyethylene Glycol 17 gm 03/12/25 09:00 03/12/25 09:38 Polyethylene Glycol 3350 17 Gm Powd.Pack PO 17 gm QAM SCOUT Administration Quetiapine Fumarate 200 mg 03/10/25 21:00 03/11/25 20:41 Quetiapine Fumarate 100 Mg Tablet PO 200 mg HS SCOUT Administration Sacubitril/Valsartan 1 tab 03/10/25 09:00 03/12/25 09:35 Sacubitril/Valsartan 24-26 Mg Tablet PO 1 tab Q12HR SCOUT Administration Spironolactone 25 mg 03/10/25 09:00 03/12/25 09:36 Spironolactone 25 Mg Tablet PO 25 mg DAILY SCOUT Administration Sucralfate 1,000 mg 03/10/25 11:30 03/12/25 17:03 Sucralfate Susp 100 Mg/Ml 10 Ml Udc PO 1,000 mg ACHS SCOUT Administration Tamsulosin HCl 0.4 mg 03/10/25 09:00 03/12/25 09:36 Tamsulosin Hcl 0.4 Mg Capsule PO 0.4 mg DAILY SCOUT Administration Radiology Results: ITS Impressions Chest X-Ray 03/09/25 19:35 IMPRESSION: No acute cardiopulmonary process. Head/Neck CTA 03/09/25 20:31 IMPRESSION: No acute intracranial process. No large vessel intracranial occlusion, high-grade intracranial stenosis, or aneurysm. No carotid or vertebral artery occlusion, dissection, or significant stenosis. 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 5.4 mostly solid-appearing left thyroid mass, recommend nonemergent outpatient thyroid ultrasound for further evaluation. Abdomen/Pelvis CT 03/09/25 20:59 IMPRESSION: Mild esophagitis/gastritis. Contracted gallbladder which limits evaluation. Gallbladder mucosal hyperemia may reflect a degree of inflammatory change. Duodenal mucosal hyperemia, may represent mild inflammatory change. Indeterminate density left lower pole renal lesion, stable in size and morphology since the prior examination in 2020, presumably a hemorrhagic or proteinaceous cyst. Urinary bladder distention with wall thickening. May be secondary to outlet obstruction from prostatomegaly. Correlate with urinalysis and symptoms of urinary retention. Thyroid Ultrasound 03/10/25 11:13 IMPRESSION: 1. Solid left thyroid mass which is suspicious. Ultrasound-guided fine-needle aspiration biopsy recommended. Abdomen Ultrasound 03/10/25 19:34 IMPRESSION: Unremarkable sonographic evaluation of the right upper quadrant, as detailed above. Orbits/Face/Neck MRI 03/12/25 16:43 IMPRESSION: 1. 2.8 x 2.9 x 1.3 cm homogeneously fatty mass without enhancing soft tissue component in the left parotid gland most consistent with a lipoma. Labs Labs: Laboratory Results - last 24 hr 03/12/25 05:26 WBC 6.7 RBC 4.41 L Hgb 12.5 L Hct 39.3 L MCV 89.1 MCH 28.3 MCHC 31.8 L RDW 15.4 H Plt Count 113 L MPV 10.6 H Immature Gran % (Auto) 0.6 H Neut % (Auto) 69.1 Lymph % (Auto) 18.8 Hod[place]eman % (Auto) 9.0 H Eos % (Auto) 2.0 Baso % (Auto) 0.5 Lymph # (Auto) 1.25 [place]eman # (Auto) 0.6 Eos # (Auto) 0.1 Baso # (Auto) 0.0 Abs Immat Gran (auto) 0.04 H Absolute Neuts (auto) 4.6 Absolute Nucleated RBC 0.000 Nucleated RBC % 0.0 % Immature Plt Fraction 4.7 Sodium 135 L Potassium 3.6 Chloride 101 Carbon Dioxide 27 Anion Gap 7 BUN 21 H Creatinine 0.86 Estim Creat Clear Calc 89 Estimated GFR > 60 Glucose 269 H Hemoglobin A1c 9.7 H Calcium 8.4 Magnesium 2.5 H Total Bilirubin 0.6 AST 25 ALT 18 Alkaline Phosphatase 68 Total Creatine Kinase 289 H Total Protein 6.4 Albumin 3.7
[2025-03-12 21:38] VITALS: BP 160/76; PULSE 65; RESP 18; TEMP 36.6; O2SAT 98
[2025-03-12] MEDS: PANTOPRAZOLE 40 MG TABLET PO (21:41)
[2025-03-12] MEDS: INSULIN GLARGINE (*BKC) 100 UNITS/ML 12 UNITS SUB-Q (21:41)
[2025-03-12] MEDS: ATORVASTATIN 40 MG TABLET PO (21:42)
[2025-03-12 21:50] VITALS: PULSE 62; RESP 20; O2SAT 96
--- NOTE | 2025-03-13 | ECHO_ITS ---
Patient Info Name: Abhishek Ford Age: 75 years : 1950 Gender: Male Ht: 74 in Wt: 244 lbs BSA: 2.43 m2 HR: 62 bpm BP: 126 / 82 mmHg Heart Rhythm: Sinus Rhythm Technical Quality: Good Exam Date: 03/13/2025 12:09 PM Patient Status: I Admit Date: 03/11/2025 Exam Type: CA echo dop color flow w con Complete two-dimensional, color flow and Doppler transthoracic echocardiogram is performed with contrast to opacify the left ventricle and to improve the deliniation of the left ventricle endocardial borders. Staff Referring Physician: Terry Justice Upholstery Technician: Roopa Fernandez Attending Provider: Laura Barrera Contrast/Agitated Saline Contrast/Ag. Saline: Definity Amount: 2.00 ml Administered By: Roopa Fernandez Summary 1. Definity contrast used to improve visualization. 2. Left ventricular systolic dysfunction with ejection fraction estimated to be 35%. 3. Akinesis of the anteroseptal segment, apex, apical anterior wall and apical inferior wall. Infarction in the distribution of the mid to distal LAD is suspect. 4. Enlarged left atrium. 5. Mild mitral regurgitation. Left Ventricle Left ventricular chamber dimension is mildly enlarged. Left ventricular systolic function is moderately reduced, estimated at 35-40. The left ventricular diastolic function is grade I diastolic dysfunction. Right Ventricle Right ventricular chamber dimension is normal. Left Atria Left atrial chamber dimension is mildly enlarged. Right Atria Right atrial chamber dimension is normal. Aortic Valve The aortic valve is normal. Pulmonic Valve The pulmonic valve is normal. Mitral Valve The mitral valve has normal leaflets. There is mild mitral valve regurgitation. Tricuspid Valve The tricuspid valve leaflets are normal. Pericardium/Pleural The pericardium appears normal. Aorta The aortic root size at the sinus of Valsalva is normal. Left Ventricular Outflow Tract Name Value Normal LVOT 2D LVOT Diameter 2.0 cm LVOT Doppler LVOT Peak Velocity 126 cm/s LVOT Peak Gradient 6 mmHg LVOT Mean Gradient 3 mmHg LVOT VTI 26 cm LVOT Stroke Volume 82 ml LVOT CO 5.1 l/min LVOT CI 2.1 l/min/m2 Pulmonic Valve Name Value Normal RVOT Doppler RVOT Peak Velocity 99 cm/s RVOT Peak Gradient 4 mmHg PV Doppler PV Peak Velocity 156 cm/s PV Peak Gradient 10 mmHg Mitral Valve Name Value Normal MV Diastolic Function MV E Peak Velocity 81 cm/s MV A Peak Velocity 107 cm/s MV E/A 0.8 MV Decel Time (PW) 276 ms MV Annular TDI MV E/e' (Septal) 13.9 MV E/e' (Lateral) 11.0 MV E/e' (Average) 12.4 Aortic Valve Name Value Normal AV Doppler AV Peak Velocity 181 cm/s AV Peak Gradient 13 mmHg AV Area (Cont Eq Cedrick) 2.2 cm2 AV DI (Cedrick) 0.69 AV Regurgitation 2D LVOT Area 3.1 cm2 Ventricles Name Value Normal LV Dimensions 2D/MM IVS Diastolic Thickness (2D) 1.2 cm 0.6-1.0 LVID Diastole (2D) 5.7 cm 4.2-5.8 LVIW Diastolic Thickness (2D) 1.2 cm 0.6-1.0 LVID Systole (2D) 4.0 cm 2.5-4.0 LVOT Diameter 2.0 cm LV Mass (2D Cubed) 297.32 g 88.00-224.00 LV Mass Index (2D Cubed) 122 g/m2 49-115 Relative Wall Thickness (2D) 0.42 <=0.42 LV Fractional Shortening/Ejection Fraction 2D/MM LV Fractional Shortening (2D) 29 % 25-43 LV EF (2D Teichholz) 55 % LV Diastolic Volume (4C MOD) 182 ml LV EF (4C MOD) 44 % LV Diastolic Volume (2C MOD) 149 ml LV EF (2C MOD) 35 % LV Diastolic Volume (BP MOD) 165 ml 62-150 LV Diastolic Volume Index (BP MOD) 68 ml/m2 34-74 LV Systolic Volume (BP MOD) 101 ml 21-61 LV Systolic Volume Index (BP MOD) 42 ml/m2 11-31 LV EF (BP MOD) 39 % 52-72 LV Diastolic Length (4C) 9.5 cm LV Systolic Length (4C) 8.9 cm LV Stroke Volume (4C MOD) 80 ml Atria Name Value Normal LA Dimensions LA Volume (4C A-L) 65 ml LA Volume (BP A-L) 67 ml RA Dimensions RA Systolic [place] Length (4C) 5.3 cm 2.1-2.7 RA Area (4C) 13.4 cm2 <=18.0 Report Signatures
[2025-03-13] MEDS: SUCRALFATE SUSP 100 MG/ML 10 ML UDC 1000 MG PO ×4 (05:26→21:05)
[2025-03-13 05:28] VITALS: BP 126/82; PULSE 70; RESP 18; TEMP 36.4; O2SAT 96
[2025-03-13] MEDS: INSULIN ASPART (*BKC) 100 UNITS/ML SUB-Q ×3 (08:06→17:13)
[2025-03-13] MEDS: ENOXAPARIN 40 MG/0.4 ML SYRINGE SUB-Q (08:12)
[2025-03-13 08:14] VITALS: PULSE 71
[2025-03-13] MEDS: METOPROLOL SUCCINATE EXT REL 50 MG TABCR PO (08:14)
[2025-03-13] MEDS: CLOPIDOGREL BISULFATE 75 MG TABLET PO (08:14)
[2025-03-13] MEDS: TAMSULOSIN HCL 0.4 MG CAPSULE PO (08:15)
[2025-03-13] MEDS: PANTOPRAZOLE 40 MG TABLET PO ×2 (08:15→21:02)
[2025-03-13] MEDS: SPIRONOLACTONE 25 MG TABLET PO (08:16)
[2025-03-13] MEDS: CYANOCOBALAMIN 1,000 MCG TABLET 1000 MCG PO (08:17)
[2025-03-13] MEDS: SACUBITRIL/VALSARTAN 24-26 MG TABLET 1 TAB PO ×2 (08:18→21:02)
[2025-03-13] MEDS: FLUTICASONE PROPIONATE 0.05% NA SPR 16 GM BTL (*BKC) 2 SPRAY NASAL (08:29)
[2025-03-13] MEDS: PERFLUTREN LIPID MICROSPHERES 1.5 ML VIAL DILUTED TO 10 ML TOTAL VOLUME IV PUSH (12:33)
--- NOTE | 2025-03-13 12:34 | IVDEFINITY ---
Prior to administration of IV Definity the patient was educated on the risks and benefits of the imaging enhancing agent including potential adverse side effects. The patient verbalized understanding. Allergies were verified. No exclusion criteria were identified and at least one of the following inclusion criteria were met: 1) physician request, 2) patient technically difficult to image (per the [place] [employer] guidelines of two or more segments not discernable within the apical view), or 3) questionable left ventricular function. ?
[2025-03-13 14:00] VITALS: BP 144/63; PULSE 66; RESP 18; TEMP 36.5; O2SAT 97
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
[2025-03-13] MEDS: ATORVASTATIN 40 MG TABLET PO (21:02)
[2025-03-13] MEDS: ONDANSETRON INJ 4 MG/2 ML VIAL IV PUSH (21:02)
[2025-03-13] MEDS: INSULIN GLARGINE (*BKC) 100 UNITS/ML 17 UNITS SUB-Q (21:03)
[2025-03-13] MEDS: ACETAMINOPHEN 325 MG TABLET 650 MG PO (21:04)
[2025-03-13 21:37] VITALS: PULSE 61; RESP 20; O2SAT 98
[2025-03-13 22:00] VITALS: BP 148/69; PULSE 64; RESP 14; TEMP 37; O2SAT 97
[2025-03-14 06:00] VITALS: BP 134/72; PULSE 69; RESP 16; TEMP 35.7; O2SAT 99
[2025-03-14] MEDS: SUCRALFATE SUSP 100 MG/ML 10 ML UDC 1000 MG PO ×4 (06:27→22:53)
[2025-03-14 06:35] LABS: Hematocrit 41.8 % (42.0-52.0); Hemoglobin 13.3 g/dL (14.0-18.0); Immature Platelet Fraction Pct 4.4 % (0.9-11.2); Mean Corpuscular HGB Conc 31.8 g/dl (32-36); Mean Corpuscular Hemoglobin 28.3 pg (26-34); Mean Corpuscular Volume 88.9 fl (80-100); Platelet Count Result 115 k/mm3 (150-375); Red Blood Count 4.70 M/mm3 (4.6-6.20); White Blood Count 6.4 K/mm3 (4.5-10.0)
[2025-03-14 06:59] LABS: Anion Gap 6 mmol/L (4-12); Blood Urea Nitrogen 14 mg/dL (9-20); Calcium 8.8 mg/dL (8.4-10.2); Carbon Dioxide 28 mmol/L (22-30); Chloride 103 mmol/L (98-107); Estimated CRCL calculation 93 ml/min; Estimated Glomerular Filt Rate > 60; Glucose 257 mg/dL (65-110); Potassium 3.9 mmol/L (3.4-5.0); Sodium 137 mmol/L (137-145)
[2025-03-14] MEDS: SPIRONOLACTONE 25 MG TABLET PO (09:12)
[2025-03-14] MEDS: CLOPIDOGREL BISULFATE 75 MG TABLET PO (09:12)
[2025-03-14] MEDS: TAMSULOSIN HCL 0.4 MG CAPSULE PO (09:13)
[2025-03-14] MEDS: SACUBITRIL/VALSARTAN 24-26 MG TABLET 1 TAB PO ×2 (09:13→22:52)
[2025-03-14] MEDS: CYANOCOBALAMIN 1,000 MCG TABLET 1000 MCG PO (09:13)
[2025-03-14] MEDS: PANTOPRAZOLE 40 MG TABLET PO (09:13)
[2025-03-14] MEDS: DIVALPROEX SODIUM ER 500 MG TAB.24H 1000 MG PO (09:13)
[2025-03-14 09:14] VITALS: PULSE 69
[2025-03-14] MEDS: METOPROLOL SUCCINATE EXT REL 50 MG TABCR PO (09:14)
[2025-03-14] MEDS: INSULIN ASPART (*BKC) 100 UNITS/ML SUB-Q ×3 (09:25→18:00)
[2025-03-14] MEDS: FLUTICASONE PROPIONATE 0.05% NA SPR 16 GM BTL (*BKC) 2 SPRAY NASAL (09:26)
[2025-03-14] MEDS: ENOXAPARIN 40 MG/0.4 ML SYRINGE SUB-Q (09:26)
--- NOTE | 2025-03-14 10:06 | PCNFU ---
Nutrition Follow-Up Complete: Suboptimal PO intake related to loss of appetite as evidenced by intakes ~50% Intakes >75%- Progressing with intakes. Continue same goal Goal: Pt current nutrition is Heart healthy diet, Ensure HP+ BID (350 kcal, 20 g protein). Nutrition recommendation: No new recommendations. Continue with current nutrition care plan and orders. Agree with orders Last recorded weight is 110.6 kg. Bowel Motility: +6 BMs 03/12 Labs Reviewed: Hgb 13.3, Hct 41.8, Glu 257, Mag 2.5 Meds Noted: Depakote Skin: No skin issues Additional Notes: Intakes improved to 50-100%. Continue with orders. Monitoring intakes, weights, labs, supplement tolerance, plan of care Follow up in 5 days
--- NOTE | 2025-03-14 13:44 | P.PNIM_ITS ---
Progress Note: A&P Assessment and Plan (1) Altered mental status: Code(s): R41.82 - Altered mental status, unspecified Status: Acute Assessment and Plan: Patient was found down. WBC was 13K but normal on repeat. Lactic was 2.6 that also normalized on repeat. Possible Seizure especially if he was out of his meds. Neurology consulted. Home Keppra dose was continued but changed to IV route then changed back to oral when more stable TSH normal. B12 level low. Ammonia <9. EEG showed abnormal record due to the presence of bihemispheric theta and delta activity without evidence of any normal activity particularly posteriorly that could be compatible with ongoing neuro degenerative process or postictal state. He remained stable and mental status better. Consider confusion partially related to B12 deficiency as well. B12 was replaced. We continued Seroquel and Cymbalta home dose. Keppra level low at 8.7. Discussed with neurology who felt Keppra can cause aggressive personality so Keppra stopped and changed to Depakote. Monitor mental status (2) Leukocytosis: Code(s): D72.829 - Elevated white blood cell count, unspecified Status: Acute Assessment and Plan: As above. Resolved (3) Elevated troponin: Code(s): R79.89 - Other specified abnormal findings of blood chemistry Status: Acute Assessment and Plan: Patient with elevated troponin but flat; Trop peaked at 0.047 Hx of CAD status post stent placement 15 years ago. Recent stress testing did not show any areas of ischemia Echo as mentioned below. Cardiology consulted Continue Plavix, Toprol and Lipitor (4) Lactic acidosis: Code(s): E87.20 - Acidosis, unspecified Status: Acute Assessment and Plan: As above (5) Abdominal pain: Code(s): R10.9 - Unspecified abdominal pain Status: Acute Assessment and Plan: CT AP showed esophagitis/gastritis with duodenal mucosal hyperemia GI consulted Abd US showing no acute findings. LFTs and Lipase normal. Started on IV Protonix and Sucralfate MagCitrate given with good results. Abd pain better Was on IV Zosyn but now stopped. Continue Miralax (6) B12 deficiency: Code(s): E53.8 - Deficiency of other specified B group vitamins Status: Acute Assessment and Plan: B12 level 165. Replacement ordered. (7) Thyroid mass: Code(s): E07.9 - Disorder of thyroid, unspecified Status: Acute Assessment and Plan: A 5.4cm mostly solid left thyroid mas noted and confirmed by thyroid US. TSH normal. 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 (9) Cardiomyopathy: Code(s): I42.9 - Cardiomyopathy, unspecified Status: Acute Assessment and Plan: Patient with known cardiomyopathy. Echo showing EF 35%, akinesis noted related to infarct in the mid and distal LAD distribution and mild valve disease. Stable and not in acute CHF. Continue GDMT with Entresto, Spironolactone, Toprol XL; Farxiga on hold and will resume at discharge Cardiology following (10) Diabetes mellitus with hyperglycemia: Code(s): E11.65 - Type 2 diabetes mellitus with hyperglycemia Status: Acute Assessment and Plan: A1c 9.7. The patient's blood glucose was reviewed on 03/14 Glucose remains poorly controlled felt related to improved oral intake. Home meds include Farxiga, Amaryl. Amaryl held and Lantus started. Continue AccuCheks covering with sliding scale. Hypoglycemia protocol available as needed. Advance Lantus again Plan Thrombocytopenia - Noted and stable. Follow. Code status - full DVT prophylaxis - Lovenox Disp - working with therapy. Placement being arranged Subjective Date/time seen: 03/14/25 13:44 Interval history: 75yo male with diabetes and bipolar disorder with behavioral disturbances who presented with confusion. 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 He was reportedly intoxicated and acting aggressively. Slept okay. No CP or SOB. No n/v. Exam Narrative: AF 96.3 134/72 69 16 99% ra Gen - NARD Chest - CTA bilaterally, nml RR CV - RRR S1/S2 Abd - Soft, NT/ND Ext - No pedal edema Neuro - Alert and oriented x4 Psych - Nml mood with flat affect Skin - Warm and dry Objective Data Vital Signs Vital Signs: Vital Signs - 24 hr 03/13/25 14:00 03/13/25 21:37 03/13/25 22:00 Temperature 97.7 F 98.6 F Pulse Rate 66 61 64 Respiratory Rate 18 20 14 Blood Pressure 144/63 H 148/69 H Pulse Oximetry 97 98 97 Oxygen Delivery Room Air Fraction of Inspired Oxygen 21 03/14/25 06:00 03/14/25 09:14 Temperature 96.3 F L Pulse Rate 69 69 Respiratory Rate 16 Blood Pressure 134/72 Pulse Oximetry 99 Oxygen Delivery Fraction of Inspired Oxygen Intake/Output Intake/Output: Intake & Output 03/11/25 03/12/25 03/13/25 03/14/25 23:59 23:59 23:59 23:59 Intake Total 320 2680 1820 780 Output Total 500 1150 2200 Balance -180 1530 -380 780 Meds/Results Medications: Active Medications Generic Name Dose Route Start Last Admin Trade Name Freq PRN Reason Stop Dose Admin Acetaminophen 650 mg 03/10/25 02:10 03/13/25 21:04 Acetaminophen 325 Mg Tablet PO 650 mg Q4H PRN Administration Mild Pain (1-3) or Fever Albuterol 2 puff 03/10/25 03:51 Albuterol Sulfate (*Sp) Aerosol 1 Puff INHALATION Q4H PRN shortness of breath or wheezing Atorvastatin Calcium 40 mg 03/10/25 21:00 03/13/25 21:02 Atorvastatin 40 Mg Tablet PO 40 mg HS SCOUT Administration Clopidogrel Bisulfate 75 mg 03/10/25 09:00 03/14/25 09:12 Clopidogrel Bisulfate 75 Mg Tablet PO 75 mg DAILY SCOUT Administration Cyanocobalamin 1,000 mcg 03/13/25 09:00 03/14/25 09:13 Cyanocobalamin 1,000 Mcg Tablet PO 1,000 mcg QAM SCOUT Administration Dextrose 12.5 gm 03/12/25 18:46 Dextrose 50% 25 Gm/50 Ml Syringe IV PUSH PRN PRN Hypoglycemia Protocol Divalproex Sodium 1,000 mg 03/14/25 08:00 03/14/25 09:13 Divalproex Sodium Er 500 Mg Tab.24h PO 1,000 mg DAILY@0800 SCOUT Administration Docusate Sodium 100 mg 03/10/25 03:51 Docusate Sodium 100 Mg Capsule PO DAILY PRN constipation Duloxetine HCl 30 mg 03/10/25 03:55 03/13/25 21:02 Duloxetine Hcl 30 Mg Capsule.Dr PO 30 mg HS SCOUT Administration Duloxetine HCl 60 mg 03/10/25 09:00 03/14/25 09:14 Duloxetine Hcl 30 Mg Capsule. PO 60 mg DAILY SCOUT Administration Enoxaparin Sodium 40 mg 03/11/25 09:00 03/14/25 09:26 Enoxaparin 40 Mg/0.4 Ml Syringe SUB-Q 40 mg DAILY SCOUT Administration Fluticasone Propionate 2 spray 03/10/25 09:00 03/14/25 09:26 Fluticasone Propionate 0.05% Na Spr 16 Gm Btl (*Bkc) NASAL 2 spray DAILY SCOUT Administration Glucagon 1 mg 03/12/25 18:46 Glucagon For Inj 1 Mg Vial IM PRN PRN Hypoglycemia Protocol Glucose 15 gm 03/12/25 18:46 Glucose Oral Gel 15 Gm Of Glucse In 37.5 Gm Tube PO PRN PRN Hypoglycemia Protocol Dextrose 1,000 mls @ 100 mls/hr 03/12/25 18:46 Dextrose 5% 1,000 Ml IVPB PRN PRN Hypoglycemia Protocol Insulin Aspart 4 - 8 units 03/13/25 08:00 03/14/25 12:04 Insulin Aspart (*Bkc) 100 Units/Ml SUB-Q 5 units TIDWM SCOUT Administration Protocol Insulin Glargine 17 units 03/13/25 21:00 03/13/25 21:03 Insulin Glargine (*Bkc) 100 Units/Ml SUB-Q 17 units HS SCOUT Administration Metoprolol Succinate 50 mg 03/10/25 09:00 03/14/25 09:14 Metoprolol Succinate Ext Rel 50 Mg Tabcr PO 50 mg DAILY SCOUT Administration Ondansetron HCl 4 mg 03/10/25 06:19 03/13/25 21:02 Ondansetron Inj 4 Mg/2 Ml Vial IV PUSH 4 mg Q6H PRN Administration Nausea And Vomiting Pantoprazole Sodium 40 mg 03/12/25 21:00 03/14/25 09:13 Pantoprazole 40 Mg Tablet PO 40 mg Q12HR SCOUT Administration Polyethylene Glycol 17 gm 03/12/25 09:00 03/14/25 09:14 Polyethylene Glycol 3350 17 Gm Powd.Pack PO 17 gm QAM SCOUT Administration Quetiapine Fumarate 200 mg 03/10/25 21:00 03/13/25 21:02 Quetiapine Fumarate 100 Mg Tablet PO 200 mg HS SCOUT Administration Sacubitril/Valsartan 1 tab 03/10/25 09:00 03/14/25 09:13 Sacubitril/Valsartan 24-26 Mg Tablet PO 1 tab Q12HR SCOUT Administration Spironolactone 25 mg 03/10/25 09:00 03/14/25 09:12 Spironolactone 25 Mg Tablet PO 25 mg DAILY SCOUT Administration Sucralfate 1,000 mg 03/10/25 11:30 03/14/25 12:04 Sucralfate Susp 100 Mg/Ml 10 Ml Udc PO 1,000 mg ACHS SCOUT Administration Tamsulosin HCl 0.4 mg 03/10/25 09:00 03/14/25 09:13 Tamsulosin Hcl 0.4 Mg Capsule PO 0.4 mg DAILY SCOUT Administration Radiology Results: ITS Impressions Chest X-Ray 03/09/25 19:35 IMPRESSION: No acute cardiopulmonary process. Head/Neck CTA 03/09/25 20:31 IMPRESSION: No acute intracranial process. No large vessel intracranial occlusion, high-grade intracranial stenosis, or aneurysm. No carotid or vertebral artery occlusion, dissection, or significant stenosis. 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 5.4 mostly solid-appearing left thyroid mass, recommend nonemergent outpatient thyroid ultrasound for further evaluation. Abdomen/Pelvis CT 03/09/25 20:59 IMPRESSION: Mild esophagitis/gastritis. Contracted gallbladder which limits evaluation. Gallbladder mucosal hyperemia may reflect a degree of inflammatory change. Duodenal mucosal hyperemia, may represent mild inflammatory change. Indeterminate density left lower pole renal lesion, stable in size and morphology since the prior examination in 2020, presumably a hemorrhagic or proteinaceous cyst. Urinary bladder distention with wall thickening. May be secondary to outlet obstruction from prostatomegaly. Correlate with urinalysis and symptoms of urinary retention. Thyroid Ultrasound 03/10/25 11:13 IMPRESSION: 1. Solid left thyroid mass which is suspicious. Ultrasound-guided fine-needle aspiration biopsy recommended. Abdomen Ultrasound 03/10/25 19:34 IMPRESSION: Unremarkable sonographic evaluation of the right upper quadrant, as detailed above. Orbits/Face/Neck MRI 03/12/25 16:43 IMPRESSION: 1. 2.8 x 2.9 x 1.3 cm homogeneously fatty mass without enhancing soft tissue component in the left parotid gland most consistent with a lipoma. Labs Labs: Laboratory Results - last 24 hr 03/13/25 03/13/25 03/14/25 17:09 20:57 05:53 WBC 6.4 RBC 4.70 Hgb 13.3 L Hct 41.8 L MCV 88.9 MCH 28.3 MCHC 31.8 L RDW 15.0 H Plt Count 115 L MPV 10.4 % Immature Plt Fraction 4.4 Sodium 137 Potassium 3.9 Chloride 103 Carbon Dioxide 28 Anion Gap 6 BUN 14 D Creatinine 0.82 Estim Creat Clear Calc 93 Estimated GFR > 60 Glucose 257 H POC Capillary Glucose 291 H 302 H Calcium 8.8 03/14/25 03/14/25 07:51 11:41 WBC RBC Hgb Hct MCV MCH MCHC RDW Plt Count MPV % Immature Plt Fraction Sodium Potassium Chloride Carbon Dioxide Anion Gap BUN Creatinine Estim Creat Clear Calc Estimated GFR Glucose POC Capillary Glucose 288 H 275 H Calcium
[2025-03-14 14:00] VITALS: BP 116/47; PULSE 82; RESP 18; TEMP 36.2; O2SAT 98
[2025-03-14 22:00] VITALS: BP 152/73; PULSE 69; RESP 18; TEMP 37.1; O2SAT 98
[2025-03-14] MEDS: ATORVASTATIN 40 MG TABLET PO (22:52)
[2025-03-14] MEDS: INSULIN GLARGINE (*BKC) 100 UNITS/ML 22 UNITS SUB-Q (22:53)
[2025-03-15] MEDS: SUCRALFATE SUSP 100 MG/ML 10 ML UDC 1000 MG PO ×4 (05:39→20:39)
[2025-03-15 06:00] VITALS: BP 153/81; PULSE 73; RESP 18; TEMP 36.8; O2SAT 100
[2025-03-15] MEDS: CLOPIDOGREL BISULFATE 75 MG TABLET PO (08:13)
[2025-03-15] MEDS: TAMSULOSIN HCL 0.4 MG CAPSULE PO (08:13)
[2025-03-15] MEDS: DIVALPROEX SODIUM ER 500 MG TAB.24H 1000 MG PO (08:13)
[2025-03-15] MEDS: SPIRONOLACTONE 25 MG TABLET PO (08:13)
[2025-03-15] MEDS: METOPROLOL SUCCINATE EXT REL 50 MG TABCR PO (08:13)
[2025-03-15] MEDS: PANTOPRAZOLE 40 MG TABLET PO (08:13)
[2025-03-15] MEDS: SACUBITRIL/VALSARTAN 24-26 MG TABLET 1 TAB PO ×2 (08:13→20:39)
[2025-03-15] MEDS: CYANOCOBALAMIN 1,000 MCG TABLET 1000 MCG PO (08:14)
[2025-03-15] MEDS: INSULIN ASPART (*BKC) 100 UNITS/ML SUB-Q ×3 (09:20→17:03)
[2025-03-15] MEDS: ENOXAPARIN 40 MG/0.4 ML SYRINGE SUB-Q (09:20)
--- NOTE | 2025-03-15 12:01 | P.PNIM_ITS ---
Progress Note: A&P Assessment and Plan (1) Altered mental status: Code(s): R41.82 - Altered mental status, unspecified Status: Acute Assessment and Plan: Patient was found down. WBC was 13K but normal on repeat. Lactic was 2.6 that also normalized on repeat. Possible Seizure especially if he was out of his meds. Neurology consulted. Home Keppra dose was continued but changed to IV route then changed back to oral when more stable TSH normal. B12 level low. Ammonia <9. EEG showed abnormal record due to the presence of bihemispheric theta and delta activity without evidence of any normal activity particularly posteriorly that could be compatible with ongoing neuro degenerative process or postictal state. He remained stable and mental status better. Consider confusion partially related to B12 deficiency as well. B12 was replaced. We continued Seroquel and Cymbalta home dose. Keppra level was low at 8.7. Discussed with neurology who felt Keppra can cause aggressive personality so Keppra stopped and changed to Depakote. Monitor mental status. Check Depakote level (2) Leukocytosis: Code(s): D72.829 - Elevated white blood cell count, unspecified Status: Acute Assessment and Plan: As above. Resolved (3) Elevated troponin: Code(s): R79.89 - Other specified abnormal findings of blood chemistry Status: Acute Assessment and Plan: Patient with elevated troponin but flat; Trop peaked at 0.047 Hx of CAD status post stent placement 15 years ago. Recent stress testing did not show any areas of ischemia Echo as mentioned below. Cardiology consulted Continue Plavix, Toprol and Lipitor (4) Lactic acidosis: Code(s): E87.20 - Acidosis, unspecified Status: Acute Assessment and Plan: As above (5) Abdominal pain: Code(s): R10.9 - Unspecified abdominal pain Status: Acute Assessment and Plan: CT AP showed esophagitis/gastritis with duodenal mucosal hyperemia GI consulted Abd US showing no acute findings. LFTs and Lipase normal. Started on IV Protonix and Sucralfate MagCitrate given with good results. Abd pain better Was on IV Zosyn but now stopped. Continue Miralax (6) B12 deficiency: Code(s): E53.8 - Deficiency of other specified B group vitamins Status: Acute Assessment and Plan: B12 level 165. Replacement ordered. (7) Thyroid mass: Code(s): E07.9 - Disorder of thyroid, unspecified Status: Acute Assessment and Plan: A 5.4cm mostly solid left thyroid mas noted and confirmed by thyroid US. TSH normal. 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 (9) Cardiomyopathy: Code(s): I42.9 - Cardiomyopathy, unspecified Status: Acute Assessment and Plan: Patient with known cardiomyopathy. Echo showing EF 35%, akinesis noted related to infarct in the mid and distal LAD distribution and mild valve disease. Stable and not in acute CHF. Continue GDMT with Entresto, Spironolactone, Toprol XL; Farxiga on hold and will resume at discharge Cardiology following (10) Diabetes mellitus with hyperglycemia: Code(s): E11.65 - Type 2 diabetes mellitus with hyperglycemia Status: Acute Assessment and Plan: A1c 9.7. The patient's blood glucose was reviewed on 03/15 Glucose remains poorly controlled felt related to improved oral intake. Home meds include Farxiga, Amaryl. Amaryl held and Lantus started. Continue AccuCheks covering with sliding scale. Hypoglycemia protocol available as needed. Advance Lantus again. Change to diabetic diet Plan Thrombocytopenia - Noted and stable. Follow. Code status - full DVT prophylaxis - Lovenox Disp - worked with therapy. Placement being arranged Subjective Date/time seen: 03/15/25 12:01 Interval history: 75yo male with diabetes and bipolar disorder with behavioral disturbances who presented with confusion. 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 He was reportedly intoxicated and acting aggressively. No problems overnight. No chest pain or shortness of breath. No nausea or vomiting. Eating okay. Exam Narrative: AF 98.2 153/81 73 18 100% ra Gen - NARD Chest - CTA bilaterally, nml RR CV - RRR S1/S2 Abd - Soft, NT/ND Ext - No pedal edema Neuro - Alert and appropriate. Psych - Nml mood. More animated today. Skin - Warm and dry Objective Data Vital Signs Vital Signs: Vital Signs - 24 hr 03/14/25 14:00 03/14/25 20:00 03/14/25 22:00 Temperature 97.1 F L 98.8 F Pulse Rate 82 69 Respiratory Rate 18 18 Blood Pressure 116/47 L 152/73 H Pulse Oximetry 98 98 Oxygen Delivery Room Air 03/15/25 06:00 03/15/25 08:00 Temperature 98.2 F Pulse Rate 73 Respiratory Rate 18 Blood Pressure 153/81 H Pulse Oximetry 100 Oxygen Delivery Room Air Intake/Output Intake/Output: Intake & Output 03/12/25 03/13/25 03/14/25 03/15/25 23:59 23:59 23:59 23:59 Intake Total 2680 1820 1020 1100 Output Total 1150 2200 1200 800 Balance 1530 380 -180 300 Meds/Results Medications: Active Medications Generic Name Dose Route Start Last Admin Trade Name Freq PRN Reason Stop Dose Admin Acetaminophen 650 mg 03/10/25 02:10 03/13/25 21:04 Acetaminophen 325 Mg Tablet PO 650 mg Q4H PRN Administration Mild Pain (1-3) or Fever Albuterol 2 puff 03/10/25 03:51 Albuterol Sulfate (*Sp) Aerosol 1 Puff INHALATION Q4H PRN shortness of breath or wheezing Atorvastatin Calcium 40 mg 03/10/25 21:00 03/14/25 22:52 Atorvastatin 40 Mg Tablet PO 40 mg HS SCOUT Administration Clopidogrel Bisulfate 75 mg 03/10/25 09:00 03/15/25 08:13 Clopidogrel Bisulfate 75 Mg Tablet PO 75 mg DAILY SCOUT Administration Cyanocobalamin 1,000 mcg 03/13/25 09:00 03/15/25 08:14 Cyanocobalamin 1,000 Mcg Tablet PO 1,000 mcg QAM SCOUT Administration Dextrose 12.5 gm 03/12/25 18:46 Dextrose 50% 25 Gm/50 Ml Syringe IV PUSH PRN PRN Hypoglycemia Protocol Divalproex Sodium 1,000 mg 03/14/25 08:00 03/15/25 08:13 Divalproex Sodium Er 500 Mg Tab.24h PO 1,000 mg DAILY@0800 SCOUT Administration Docusate Sodium 100 mg 03/10/25 03:51 Docusate Sodium 100 Mg Capsule PO DAILY PRN constipation Duloxetine HCl 30 mg 03/10/25 03:55 03/14/25 22:52 Duloxetine Hcl 30 Mg Capsule. PO 30 mg HS SCOUT Administration Duloxetine HCl 60 mg 03/10/25 09:00 03/15/25 08:13 Duloxetine Hcl 30 Mg Capsule. PO 60 mg DAILY SCOUT Administration Enoxaparin Sodium 40 mg 03/11/25 09:00 03/15/25 09:20 Enoxaparin 40 Mg/0.4 Ml Syringe SUB-Q 40 mg DAILY SCOUT Administration Fluticasone Propionate 2 spray 03/10/25 09:00 03/15/25 08:14 Fluticasone Propionate 0.05% Na Spr 16 Gm Btl (*Bkc) NASAL Not Given DAILY SCOUT Glucagon 1 mg 03/12/25 18:46 Glucagon For Inj 1 Mg Vial IM PRN PRN Hypoglycemia Protocol Glucose 15 gm 03/12/25 18:46 Glucose Oral Gel 15 Gm Of Glucse In 37.5 Gm Tube PO PRN PRN Hypoglycemia Protocol Dextrose 1,000 mls @ 100 mls/hr 03/12/25 18:46 Dextrose 5% 1,000 Ml IVPB PRN PRN Hypoglycemia Protocol Insulin Aspart 4 - 8 units 03/13/25 08:00 03/15/25 09:20 Insulin Aspart (*Bkc) 100 Units/Ml SUB-Q 4 units TIDWM SCOUT Administration Protocol Insulin Glargine 22 units 03/14/25 21:00 03/14/25 22:53 Insulin Glargine (*Bkc) 100 Units/Ml SUB-Q 22 units HS SCOUT Administration Metoprolol Succinate 50 mg 03/10/25 09:00 03/15/25 08:13 Metoprolol Succinate Ext Rel 50 Mg Tabcr PO 50 mg DAILY SCOUT Administration Ondansetron HCl 4 mg 03/10/25 06:19 03/13/25 21:02 Ondansetron Inj 4 Mg/2 Ml Vial IV PUSH 4 mg Q6H PRN Administration Nausea And Vomiting Pantoprazole Sodium 40 mg 03/15/25 09:00 03/15/25 08:13 Pantoprazole 40 Mg Tablet PO 40 mg DAILY SCOUT Administration Polyethylene Glycol 17 gm 03/12/25 09:00 03/15/25 08:13 Polyethylene Glycol 3350 17 Gm Powd.Pack PO 17 gm QAM SCOUT Administration Quetiapine Fumarate 200 mg 03/10/25 21:00 03/14/25 22:52 Quetiapine Fumarate 100 Mg Tablet PO 200 mg HS SCOUT Administration Sacubitril/Valsartan 1 tab 03/10/25 09:00 03/15/25 08:13 Sacubitril/Valsartan 24-26 Mg Tablet PO 1 tab Q12HR SCOUT Administration Spironolactone 25 mg 03/10/25 09:00 03/15/25 08:13 Spironolactone 25 Mg Tablet PO 25 mg DAILY SCOUT Administration Sucralfate 1,000 mg 03/10/25 11:30 03/15/25 11:47 Sucralfate Susp 100 Mg/Ml 10 Ml Udc PO 1,000 mg ACHS SCOUT Administration Tamsulosin HCl 0.4 mg 03/10/25 09:00 03/15/25 08:13 Tamsulosin Hcl 0.4 Mg Capsule PO 0.4 mg DAILY SCOUT Administration Radiology Results: ITS Impressions Chest X-Ray 03/09/25 19:35 IMPRESSION: No acute cardiopulmonary process. Head/Neck CTA 03/09/25 20:31 IMPRESSION: No acute intracranial process. No large vessel intracranial occlusion, high-grade intracranial stenosis, or aneurysm. No carotid or vertebral artery occlusion, dissection, or significant stenosis. 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 5.4 mostly solid-appearing left thyroid mass, recommend nonemergent outpatient thyroid ultrasound for further evaluation. Abdomen/Pelvis CT 03/09/25 20:59 IMPRESSION: Mild esophagitis/gastritis. Contracted gallbladder which limits evaluation. Gallbladder mucosal hyperemia may reflect a degree of inflammatory change. Duodenal mucosal hyperemia, may represent mild inflammatory change. Indeterminate density left lower pole renal lesion, stable in size and morphology since the prior examination in 2020, presumably a hemorrhagic or proteinaceous cyst. Urinary bladder distention with wall thickening. May be secondary to outlet obstruction from prostatomegaly. Correlate with urinalysis and symptoms of urinary retention. Thyroid Ultrasound 03/10/25 11:13 IMPRESSION: 1. Solid left thyroid mass which is suspicious. Ultrasound-guided fine-needle aspiration biopsy recommended. Abdomen Ultrasound 03/10/25 19:34 IMPRESSION: Unremarkable sonographic evaluation of the right upper quadrant, as detailed above. Orbits/Face/Neck MRI 03/12/25 16:43 IMPRESSION: 1. 2.8 x 2.9 x 1.3 cm homogeneously fatty mass without enhancing soft tissue component in the left parotid gland most consistent with a lipoma. Labs Labs: Laboratory Results - last 24 hr 03/14/25 03/14/25 03/15/25 16:39 21:05 07:33 POC Capillary Glucose 255 H 294 H 247 H
[2025-03-15 14:00] VITALS: BP 148/79; PULSE 76; RESP 16; TEMP 35.8; O2SAT 99
[2025-03-15] MEDS: ACETAMINOPHEN 325 MG TABLET 650 MG PO (15:24)
[2025-03-15] MEDS: ATORVASTATIN 40 MG TABLET PO (20:39)
[2025-03-15] MEDS: INSULIN GLARGINE (*BKC) 100 UNITS/ML 26 UNITS SUB-Q (20:43)
[2025-03-15 22:00] VITALS: BP 150/69; PULSE 79; RESP 18; TEMP 36.6; O2SAT 97
[2025-03-16 06:00] VITALS: BP 170/79; PULSE 71; RESP 18; TEMP 36.2; O2SAT 97
[2025-03-16] MEDS: SUCRALFATE SUSP 100 MG/ML 10 ML UDC 1000 MG PO ×4 (06:25→21:41)
[2025-03-16] MEDS: CLOPIDOGREL BISULFATE 75 MG TABLET PO (07:30)
[2025-03-16] MEDS: DIVALPROEX SODIUM ER 500 MG TAB.24H 1000 MG PO (07:31)
[2025-03-16] MEDS: PANTOPRAZOLE 40 MG TABLET PO (07:31)
[2025-03-16] MEDS: SPIRONOLACTONE 25 MG TABLET PO (07:31)
[2025-03-16] MEDS: SACUBITRIL/VALSARTAN 24-26 MG TABLET 1 TAB PO ×2 (07:31→21:41)
[2025-03-16] MEDS: TAMSULOSIN HCL 0.4 MG CAPSULE PO (07:31)
[2025-03-16] MEDS: CYANOCOBALAMIN 1,000 MCG TABLET 1000 MCG PO (07:31)
[2025-03-16] MEDS: METOPROLOL SUCCINATE EXT REL 50 MG TABCR PO (07:31)
[2025-03-16] MEDS: INSULIN ASPART (*BKC) 100 UNITS/ML SUB-Q ×3 (08:43→17:16)
[2025-03-16 08:49] VITALS: BP 144/62; PULSE 82
[2025-03-16] MEDS: ACETAMINOPHEN 325 MG TABLET 650 MG PO ×3 (09:42→21:54)
[2025-03-16 14:00] VITALS: BP 172/71; PULSE 85; RESP 12; TEMP 35.7; O2SAT 100
--- NOTE | 2025-03-16 14:05 | P.PNIM_ITS ---
Progress Note: A&P Assessment and Plan (1) Altered mental status: Code(s): R41.82 - Altered mental status, unspecified Status: Acute Assessment and Plan: Patient was found down. WBC was 13K but normal on repeat. Lactic was 2.6 that also normalized on repeat. Possible seizure especially if he was out of his meds. Neurology consulted. Home Keppra dose was continued. TSH normal. B12 level low. Ammonia <9. EEG showed abnormal record due to the presence of bihemispheric theta and delta activity without evidence of any normal activity particularly posteriorly that could be compatible with ongoing neuro degenerative process or postictal state. He remained stable and mental status improved. Consider confusion partially related to B12 deficiency as well. B12 was replaced. We continued Seroquel and Cymbalta at his home dose. Keppra level was low at 8.7. Discussed with neurology who felt Keppra can cause aggressive personality so Keppra stopped and changed to Depakote. Monitor mental status. Check Depakote level when appropriate (2) Leukocytosis: Code(s): D72.829 - Elevated white blood cell count, unspecified Status: Acute Assessment and Plan: As above. Resolved (3) Elevated troponin: Code(s): R79.89 - Other specified abnormal findings of blood chemistry Status: Acute Assessment and Plan: Patient with elevated troponin but flat; Trop peaked at 0.047 Hx of CAD status post stent placement 15 years ago. Recent stress testing did not show any areas of ischemia Echo as mentioned below. Cardiology consulted Continue Plavix, Toprol and Lipitor (4) Lactic acidosis: Code(s): E87.20 - Acidosis, unspecified Status: Acute Assessment and Plan: As above (5) Abdominal pain: Code(s): R10.9 - Unspecified abdominal pain Status: Acute Assessment and Plan: CT AP showed esophagitis/gastritis with duodenal mucosal hyperemia GI consulted Abd US showing no acute findings. LFTs and Lipase normal. Started on IV Protonix and Sucralfate MagCitrate given with good results. Abd pain better Was on IV Zosyn but now stopped. Having loose stools so will cut Miralax back (6) B12 deficiency: Code(s): E53.8 - Deficiency of other specified B group vitamins Status: Acute Assessment and Plan: B12 level 165. Replacement ordered. (7) Thyroid mass: Code(s): E07.9 - Disorder of thyroid, unspecified Status: Acute Assessment and Plan: A 5.4cm mostly solid left thyroid mas noted and confirmed by thyroid US. TSH normal. 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 (9) Cardiomyopathy: Code(s): I42.9 - Cardiomyopathy, unspecified Status: Acute Assessment and Plan: Patient with known cardiomyopathy. Echo showing EF 35%, akinesis noted related to infarct in the mid and distal LAD distribution and mild valve disease. Stable and not in acute CHF. Continue GDMT with Entresto, Spironolactone, Toprol XL; Farxiga on hold and will resume at discharge Cardiology following (10) Diabetes mellitus with hyperglycemia: Code(s): E11.65 - Type 2 diabetes mellitus with hyperglycemia Status: Acute Assessment and Plan: A1c 9.7. The patient's blood glucose was reviewed on 03/16 Glucose remains poorly controlled felt related to improved oral intake. Home meds include Farxiga, Amaryl. Amaryl held and Lantus started. Continue AccuCheks covering with sliding scale. Hypoglycemia protocol available as needed. Advance Lantus again. Continue diabetic diet Plan Thrombocytopenia - Noted and stable. Follow. Code status - full DVT prophylaxis - Lovenox Disp - worked with therapy. Placement being arranged Subjective Date/time seen: 03/16/25 14:05 Interval history: 75yo male with diabetes and bipolar disorder with behavioral disturbances who presented with confusion. 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 He was reportedly intoxicated and acting aggressively. Walking in room. No problems overnight. +GERD symptoms that are chronic. Loose stools. Exam Narrative: AF 97.2 144/62 82 18 97% ra Gen - NARD Chest - CTA bilaterally, nml RR CV - RRR S1/S2 Abd - Soft, NT/ND Ext - No pedal edema Neuro - Alert and appropriate. Psych - Nml mood. Skin - Warm and dry Objective Data Vital Signs Vital Signs: Vital Signs - 24 hr 03/15/25 20:00 03/15/25 22:00 03/16/25 06:00 Temperature 97.9 F 97.2 F L Pulse Rate 79 71 Respiratory Rate 18 18 Blood Pressure 150/69 H 170/79 H Pulse Oximetry 97 97 Oxygen Delivery Room Air 03/16/25 08:00 03/16/25 08:49 Temperature Pulse Rate 82 Respiratory Rate Blood Pressure 144/62 H Pulse Oximetry Oxygen Delivery Room Air Intake/Output Intake/Output: Intake & Output 03/13/25 03/14/25 03/15/25 03/16/25 23:59 23:59 23:59 23:59 Intake Total 1820 1020 1400 1340 Output Total 2200 1200 1300 700 Balance -380 -180 100 640 Meds/Results Medications: Active Medications Generic Name Dose Route Start Last Admin Trade Name Freq PRN Reason Stop Dose Admin Acetaminophen 650 mg 03/10/25 02:10 03/16/25 09:42 Acetaminophen 325 Mg Tablet PO 650 mg Q4H PRN Administration Mild Pain (1-3) or Fever Albuterol 2 puff 03/10/25 03:51 Albuterol Sulfate (*Sp) Aerosol 1 Puff INHALATION Q4H PRN shortness of breath or wheezing Atorvastatin Calcium 40 mg 03/10/25 21:00 03/15/25 20:39 Atorvastatin 40 Mg Tablet PO 40 mg HS SCOUT Administration Clopidogrel Bisulfate 75 mg 03/10/25 09:00 03/16/25 07:30 Clopidogrel Bisulfate 75 Mg Tablet PO 75 mg DAILY SCOUT Administration Cyanocobalamin 1,000 mcg 03/13/25 09:00 03/16/25 07:31 Cyanocobalamin 1,000 Mcg Tablet PO 1,000 mcg QAM SCOUT Administration Dextrose 12.5 gm 03/12/25 18:46 Dextrose 50% 25 Gm/50 Ml Syringe IV PUSH PRN PRN Hypoglycemia Protocol Divalproex Sodium 1,000 mg 03/14/25 08:00 03/16/25 07:31 Divalproex Sodium Er 500 Mg Tab.24h PO 1,000 mg DAILY@0800 SCOUT Administration Docusate Sodium 100 mg 03/10/25 03:51 Docusate Sodium 100 Mg Capsule PO DAILY PRN constipation Duloxetine HCl 30 mg 03/10/25 03:55 03/15/25 20:39 Duloxetine Hcl 30 Mg Capsule.Dr PO 30 mg HS SCOUT Administration Duloxetine HCl 60 mg 03/10/25 09:00 03/16/25 07:31 Duloxetine Hcl 30 Mg Capsule. PO 60 mg DAILY SCOUT Administration Enoxaparin Sodium 40 mg 03/11/25 09:00 03/16/25 07:37 Enoxaparin 40 Mg/0.4 Ml Syringe SUB-Q Not Given DAILY SCOUT Fluticasone Propionate 2 spray 03/10/25 09:00 03/16/25 07:31 Fluticasone Propionate 0.05% Na Spr 16 Gm Btl (*Bkc) NASAL Not Given DAILY SCOUT Glucagon 1 mg 03/12/25 18:46 Glucagon For Inj 1 Mg Vial IM PRN PRN Hypoglycemia Protocol Glucose 15 gm 03/12/25 18:46 Glucose Oral Gel 15 Gm Of Glucse In 37.5 Gm Tube PO PRN PRN Hypoglycemia Protocol Dextrose 1,000 mls @ 100 mls/hr 03/12/25 18:46 Dextrose 5% 1,000 Ml IVPB PRN PRN Hypoglycemia Protocol Insulin Aspart 4 - 8 units 03/13/25 08:00 03/16/25 12:03 Insulin Aspart (*Bkc) 100 Units/Ml SUB-Q 6 units TIDWM SCOUT Administration Protocol Insulin Glargine 26 units 03/15/25 21:00 03/15/25 20:43 Insulin Glargine (*Bkc) 100 Units/Ml SUB-Q 26 units HS SCOUT Administration Metoprolol Succinate 50 mg 03/10/25 09:00 03/16/25 07:31 Metoprolol Succinate Ext Rel 50 Mg Tabcr PO 50 mg DAILY SCOUT Administration Ondansetron HCl 4 mg 03/10/25 06:19 03/13/25 21:02 Ondansetron Inj 4 Mg/2 Ml Vial IV PUSH 4 mg Q6H PRN Administration Nausea And Vomiting Pantoprazole Sodium 40 mg 03/15/25 09:00 03/16/25 07:31 Pantoprazole 40 Mg Tablet PO 40 mg DAILY SCOUT Administration Polyethylene Glycol 17 gm 03/12/25 09:00 03/16/25 07:35 Polyethylene Glycol 3350 17 Gm Powd.Pack PO 17 gm QAM SCOUT Administration Quetiapine Fumarate 200 mg 03/10/25 21:00 03/15/25 20:39 Quetiapine Fumarate 100 Mg Tablet PO 200 mg HS SCOUT Administration Sacubitril/Valsartan 1 tab 03/10/25 09:00 03/16/25 07:31 Sacubitril/Valsartan 24-26 Mg Tablet PO 1 tab Q12HR SCOUT Administration Spironolactone 25 mg 03/10/25 09:00 03/16/25 07:31 Spironolactone 25 Mg Tablet PO 25 mg DAILY SCOUT Administration Sucralfate 1,000 mg 03/10/25 11:30 03/16/25 11:27 Sucralfate Susp 100 Mg/Ml 10 Ml Udc PO 1,000 mg ACHS SCOUT Administration Tamsulosin HCl 0.4 mg 03/10/25 09:00 03/16/25 07:31 Tamsulosin Hcl 0.4 Mg Capsule PO 0.4 mg DAILY SCOUT Administration Radiology Results: ITS Impressions Chest X-Ray 03/09/25 19:35 IMPRESSION: No acute cardiopulmonary process. Head/Neck CTA 03/09/25 20:31 IMPRESSION: No acute intracranial process. No large vessel intracranial occlusion, high-grade intracranial stenosis, or aneurysm. No carotid or vertebral artery occlusion, dissection, or significant stenosis. 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 5.4 mostly solid-appearing left thyroid mass, recommend nonemergent outpatient thyroid ultrasound for further evaluation. Abdomen/Pelvis CT 03/09/25 20:59 IMPRESSION: Mild esophagitis/gastritis. Contracted gallbladder which limits evaluation. Gallbladder mucosal hyperemia may reflect a degree of inflammatory change. Duodenal mucosal hyperemia, may represent mild inflammatory change. Indeterminate density left lower pole renal lesion, stable in size and morphology since the prior examination in 2020, presumably a hemorrhagic or proteinaceous cyst. Urinary bladder distention with wall thickening. May be secondary to outlet obstruction from prostatomegaly. Correlate with urinalysis and symptoms of urinary retention. Thyroid Ultrasound 03/10/25 11:13 IMPRESSION: 1. Solid left thyroid mass which is suspicious. Ultrasound-guided fine-needle aspiration biopsy recommended. Abdomen Ultrasound 03/10/25 19:34 IMPRESSION: Unremarkable sonographic evaluation of the right upper quadrant, as detailed above. Orbits/Face/Neck MRI 03/12/25 16:43 IMPRESSION: 1. 2.8 x 2.9 x 1.3 cm homogeneously fatty mass without enhancing soft tissue component in the left parotid gland most consistent with a lipoma. Labs Labs: Laboratory Results - last 24 hr 03/15/25 03/15/25 03/15/25 11:50 16:44 20:42 POC Capillary Glucose 347 H 252 H 268 H 03/16/25 03/16/25 08:32 11:38 POC Capillary Glucose 227 H 350 H
[2025-03-16 16:25] VITALS: BP 163/69; PULSE 77
[2025-03-16 16:30] VITALS: BP 162/82
[2025-03-16] MEDS: ATORVASTATIN 40 MG TABLET PO (21:41)
[2025-03-16] MEDS: INSULIN GLARGINE (*BKC) 100 UNITS/ML 35 UNITS SUB-Q (21:41)
[2025-03-16 21:58] VITALS: BP 136/70; PULSE 79; RESP 18; TEMP 36.9; O2SAT 99
[2025-03-17] MEDS: ACETAMINOPHEN 325 MG TABLET 650 MG PO ×2 (05:29→17:53)
[2025-03-17] MEDS: SUCRALFATE SUSP 100 MG/ML 10 ML UDC 1000 MG PO ×3 (05:30→20:22)
[2025-03-17 06:00] VITALS: BP 177/74; PULSE 82; RESP 18; TEMP 36.4; O2SAT 99
[2025-03-17 06:24] LABS: Platelet Count Result 151 k/mm3 (150-375)
[2025-03-17 06:25] LABS: Hematocrit 41.1 % (42.0-52.0); Hemoglobin 13.6 g/dL (14.0-18.0); Immature Platelet Fraction Pct 4.0 % (0.9-11.2); Mean Corpuscular HGB Conc 33.1 g/dl (32-36); Mean Corpuscular Hemoglobin 28.6 pg (26-34); Mean Corpuscular Volume 86.5 fl (80-100); Platelet Count Result 139 k/mm3 (150-375); Red Blood Count 4.75 M/mm3 (4.6-6.20); White Blood Count 6.9 K/mm3 (4.5-10.0)
[2025-03-17 06:46] LABS: Anion Gap 8 mmol/L (4-12); Blood Urea Nitrogen 15 mg/dL (9-20); Calcium 9.5 mg/dL (8.4-10.2); Carbon Dioxide 24 mmol/L (22-30); Chloride 104 mmol/L (98-107); Estimated CRCL calculation 111 ml/min; Estimated Glomerular Filt Rate > 60; Glucose 249 mg/dL (65-110); Potassium 3.6 mmol/L (3.4-5.0); Sodium 136 mmol/L (137-145)
[2025-03-17] MEDS: SPIRONOLACTONE 25 MG TABLET PO (07:25)
[2025-03-17] MEDS: TAMSULOSIN HCL 0.4 MG CAPSULE PO (07:25)
[2025-03-17] MEDS: EMPAGLIFLOZIN 10 MG TABLET PO (07:25)
[2025-03-17] MEDS: DIVALPROEX SODIUM ER 500 MG TAB.24H 1000 MG PO (07:25)
[2025-03-17] MEDS: CYANOCOBALAMIN 1,000 MCG TABLET 1000 MCG PO (07:25)
[2025-03-17] MEDS: SACUBITRIL/VALSARTAN 24-26 MG TABLET 1 TAB PO ×2 (07:25→20:21)
[2025-03-17] MEDS: PANTOPRAZOLE 40 MG TABLET PO (07:25)
[2025-03-17] MEDS: CLOPIDOGREL BISULFATE 75 MG TABLET PO (07:25)
[2025-03-17] MEDS: METOPROLOL SUCCINATE EXT REL 50 MG TABCR PO (07:25)
[2025-03-17] MEDS: FLUTICASONE PROPIONATE 0.05% NA SPR 16 GM BTL (*BKC) 2 SPRAY NASAL (07:26)
[2025-03-17] MEDS: INSULIN ASPART (*BKC) 100 UNITS/ML SUB-Q ×5 (08:10→17:54)
[2025-03-17 09:39] VITALS: BP 139/79
--- NOTE | 2025-03-17 12:30 | PM.IMPN ---
Progress Note: A&P Assessment and Plan (1) Altered mental status: Code(s): R41.82 - Altered mental status, unspecified Status: Acute Assessment and Plan: Patient was found down. WBC was 13K but normal on repeat. Lactic was 2.6 that also normalized on repeat. Possible seizure especially if he was out of his meds. Neurology consulted. Home Keppra dose was continued. TSH normal. B12 level low. Ammonia <9. EEG showed abnormal record due to the presence of bihemispheric theta and delta activity without evidence of any normal activity particularly posteriorly that could be compatible with ongoing neuro degenerative process or postictal state. He remained stable and mental status improved. Consider confusion partially related to B12 deficiency as well. B12 was replaced. We continued Seroquel and Cymbalta at his home dose. Keppra level was low at 8.7. Discussed with neurology who felt Keppra can cause aggressive personality so Keppra stopped and changed to Depakote. Monitor mental status. Check Depakote level when appropriate (2) Elevated troponin: Code(s): R79.89 - Other specified abnormal findings of blood chemistry Status: Acute Assessment and Plan: Patient with elevated troponin but flat; Trop peaked at 0.047 Hx of CAD status post stent placement 15 years ago. Recent stress testing did not show any areas of ischemia Echo as mentioned below. Cardiology consulted but did not recommend and further testing Continue Plavix, Toprol and Lipitor (3) Lactic acidosis: Code(s): E87.20 - Acidosis, unspecified Status: Acute Assessment and Plan: As above (4) Abdominal pain: Code(s): R10.9 - Unspecified abdominal pain Status: Acute Assessment and Plan: CT AP showed esophagitis/gastritis with duodenal mucosal hyperemia GI consulted Abd US showing no acute findings. LFTs and Lipase normal. Started on IV Protonix and Sucralfate MagCitrate given with good results. Was on IV Zosyn but now stopped. Abd pain better Having loose stools so we cut Miralax back (5) B12 deficiency: Code(s): E53.8 - Deficiency of other specified B group vitamins Status: Acute Assessment and Plan: B12 level 165. Replacement ordered. (6) Thyroid mass: Code(s): E07.9 - Disorder of thyroid, unspecified Status: Acute Assessment and Plan: A 5.4cm mostly solid left thyroid mas noted and confirmed by thyroid US. TSH normal. He states he had a thyroid bx a few months ago at [facility] with benign pathology. 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 (8) Cardiomyopathy: Code(s): I42.9 - Cardiomyopathy, unspecified Status: Acute Assessment and Plan: Patient with known cardiomyopathy. Echo showing EF 35%, akinesis noted related to infarct in the mid and distal LAD distribution and mild valve disease. Stable and not in acute CHF. Continue GDMT with Entresto, Spironolactone, Toprol XL; Farxiga on hold and will resume at discharge (started on Empagliflozin here) Cardiology following (9) Diabetes mellitus with hyperglycemia: Code(s): E11.65 - Type 2 diabetes mellitus with hyperglycemia Status: Acute Assessment and Plan: A1c 9.7. The patient's blood glucose was reviewed on 03/17 Home meds include Farxiga, Amaryl. Amaryl held and Lantus started. Glucose remains poorly controlled felt related to improved oral intake despite advancing Lantus daily. Continue AccuCheks covering with sliding scale. Hypoglycemia protocol available as needed. Continue diabetic diet. Add Novolog at meal times. Continue Lantus (10) Leukocytosis: Code(s): D72.829 - Elevated white blood cell count, unspecified Status: Acute Assessment and Plan: As above. Resolved Plan Thrombocytopenia - Noted and stable. Follow. Code status - full DVT prophylaxis - Lovenox Disp - worked with therapy. PT/OT feel he is at his baseline. Placement being arranged Subjective Date/time seen: 03/17/25 12:30 Interval history: 75yo male with diabetes and bipolar disorder with behavioral disturbances who presented with confusion. 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 He was reportedly intoxicated and acting aggressively. Up to he bedside commode. Can stand and pivot but not walk as previously mentioned. No CP. No complaints. He states he had a thyroid bx a few months ago at [facility] with benign pathology. Dr Fraga ordered the biopsy. Exam Narrative: AF 97.6 139/79 82 18 99% ra Gen - NARD Chest - CTA bilaterally, nml RR CV - RRR S1/S2 Abd - Soft, NT/ND Ext - No pedal edema Psych - Nml mood. Skin - Warm and dry Objective Data Vital Signs Vital Signs: Vital Signs - 24 hr 03/16/25 14:00 03/16/25 16:25 03/16/25 16:30 Temperature 96.2 F L Pulse Rate 85 77 Respiratory Rate 12 Blood Pressure 172/71 H 163/69 H 162/82 H Pulse Oximetry 100 Oxygen Delivery Fraction of Inspired Oxygen 03/16/25 20:00 03/16/25 21:58 03/17/25 06:00 Temperature 98.5 F 97.6 F Pulse Rate 79 82 Respiratory Rate 18 18 Blood Pressure 136/70 177/74 H Pulse Oximetry 99 99 Oxygen Delivery Room Air Fraction of Inspired Oxygen 21 03/17/25 08:00 03/17/25 09:39 Temperature Pulse Rate Respiratory Rate Blood Pressure 139/79 Pulse Oximetry Oxygen Delivery Room Air Fraction of Inspired Oxygen Intake/Output Intake/Output: Intake & Output 03/14/25 03/15/25 03/16/25 03/17/25 23:59 23:59 23:59 23:59 Intake Total 1020 1400 1780 2130 Output Total 1200 5985 098 6100 Balance -180 526 500 0111 Meds/Results Medications: Active Medications Generic Name Dose Route Start Last Admin Trade Name Freq PRN Reason Stop Dose Admin Acetaminophen 650 mg 03/10/25 02:10 03/17/25 05:29 Acetaminophen 325 Mg Tablet PO 650 mg Q4H PRN Administration Mild Pain (1-3) or Fever Albuterol 2 puff 03/10/25 03:51 Albuterol Sulfate (*Sp) Aerosol 1 Puff INHALATION Q4H PRN shortness of breath or wheezing Amlodipine Besylate 5 mg 03/16/25 16:50 03/17/25 07:25 Amlodipine Besylate 5 Mg Tablet PO 5 mg DAILY SCOUT Administration Atorvastatin Calcium 40 mg 03/10/25 21:00 03/16/25 21:41 Atorvastatin 40 Mg Tablet PO 40 mg HS SCOUT Administration Clopidogrel Bisulfate 75 mg 03/10/25 09:00 03/17/25 07:25 Clopidogrel Bisulfate 75 Mg Tablet PO 75 mg DAILY SCOUT Administration Cyanocobalamin 1,000 mcg 03/13/25 09:00 03/17/25 07:25 Cyanocobalamin 1,000 Mcg Tablet PO 1,000 mcg QAM SCOUT Administration Dextrose 12.5 gm 03/12/25 18:46 Dextrose 50% 25 Gm/50 Ml Syringe IV PUSH PRN PRN Hypoglycemia Protocol Divalproex Sodium 1,500 mg 03/17/25 21:00 Divalproex Sodium Er 500 Mg Tab.24h PO HS SCOUT Docusate Sodium 100 mg 03/10/25 03:51 Docusate Sodium 100 Mg Capsule PO DAILY PRN constipation Duloxetine HCl 30 mg 03/10/25 03:55 03/16/25 21:41 Duloxetine Hcl 30 Mg Capsule. PO 30 mg HS SCOUT Administration Duloxetine HCl 60 mg 03/10/25 09:00 03/17/25 07:25 Duloxetine Hcl 30 Mg Capsule. PO 60 mg DAILY SCOUT Administration Empagliflozin 10 mg 03/17/25 09:00 03/17/25 07:25 Empagliflozin 10 Mg Tablet PO 10 mg DAILY SCOUT Administration Enoxaparin Sodium 40 mg 03/11/25 09:00 03/17/25 11:16 Enoxaparin 40 Mg/0.4 Ml Syringe SUB-Q Not Given DAILY [facility] Fluticasone Propionate 2 spray 03/10/25 09:00 03/17/25 07:26 Fluticasone Propionate 0.05% Na Spr 16 Gm Btl (*Bkc) NASAL 2 spray DAILY SCOUT Administration Glucagon 1 mg 03/12/25 18:46 Glucagon For Inj 1 Mg Vial IM PRN PRN Hypoglycemia Protocol Glucose 15 gm 03/12/25 18:46 Glucose Oral Gel 15 Gm Of Glucse In 37.5 Gm Tube PO PRN PRN Hypoglycemia Protocol Dextrose 1,000 mls @ 100 mls/hr 03/12/25 18:46 Dextrose 5% 1,000 Ml IVPB PRN PRN Hypoglycemia Protocol Insulin Aspart 4 - 8 units 03/13/25 08:00 03/17/25 08:10 Insulin Aspart (*Bkc) 100 Units/Ml SUB-Q 4 units TIDWM SCOUT Administration Protocol Insulin Aspart 5 units 03/17/25 08:00 03/17/25 08:10 Insulin Aspart (*Bkc) 100 Units/Ml 0.05 units/kg (5 units) 5 units SUB-Q Administration TIDWM [facility] Insulin Glargine 35 units 03/16/25 21:00 03/16/25 21:41 Insulin Glargine (*Bkc) 100 Units/Ml SUB-Q 35 units HS SCOUT Administration Metoprolol Succinate 50 mg 03/10/25 09:00 03/17/25 07:25 Metoprolol Succinate Ext Rel 50 Mg Tabcr PO 50 mg DAILY SCOUT Administration Ondansetron HCl 4 mg 03/10/25 06:19 03/13/25 21:02 Ondansetron Inj 4 Mg/2 Ml Vial IV PUSH 4 mg Q6H PRN Administration Nausea And Vomiting Pantoprazole Sodium 40 mg 03/15/25 09:00 03/17/25 07:25 Pantoprazole 40 Mg Tablet PO 40 mg DAILY SCOUT Administration Polyethylene Glycol 17 gm 03/17/25 09:00 03/17/25 07:26 Polyethylene Glycol 3350 17 Gm Powd.Pack PO Not Given MOWEFR [facility] Quetiapine Fumarate 200 mg 03/10/25 21:00 03/16/25 21:41 Quetiapine Fumarate 100 Mg Tablet PO 200 mg HS SCOUT Administration Sacubitril/Valsartan 1 tab 03/10/25 09:00 03/17/25 07:25 Sacubitril/Valsartan 24-26 Mg Tablet PO 1 tab Q12HR SCOUT Administration Spironolactone 25 mg 03/10/25 09:00 03/17/25 07:25 Spironolactone 25 Mg Tablet PO 25 mg DAILY SCOUT Administration Sucralfate 1,000 mg 03/10/25 11:30 03/17/25 11:16 Sucralfate Susp 100 Mg/Ml 10 Ml Udc PO 1,000 mg ACHS SCOUT Administration Tamsulosin HCl 0.4 mg 03/10/25 09:00 03/17/25 07:25 Tamsulosin Hcl 0.4 Mg Capsule PO 0.4 mg DAILY SCOUT Administration Radiology Results: ITS Impressions Chest X-Ray 03/09/25 19:35 IMPRESSION: No acute cardiopulmonary process. Head/Neck CTA 03/09/25 20:31 IMPRESSION: No acute intracranial process. No large vessel intracranial occlusion, high-grade intracranial stenosis, or aneurysm. No carotid or vertebral artery occlusion, dissection, or significant stenosis. 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 5.4 mostly solid-appearing left thyroid mass, recommend nonemergent outpatient thyroid ultrasound for further evaluation. Abdomen/Pelvis CT 03/09/25 20:59 IMPRESSION: Mild esophagitis/gastritis. Contracted gallbladder which limits evaluation. Gallbladder mucosal hyperemia may reflect a degree of inflammatory change. Duodenal mucosal hyperemia, may represent mild inflammatory change. Indeterminate density left lower pole renal lesion, stable in size and morphology since the prior examination in 2020, presumably a hemorrhagic or proteinaceous cyst. Urinary bladder distention with wall thickening. May be secondary to outlet obstruction from prostatomegaly. Correlate with urinalysis and symptoms of urinary retention. Thyroid Ultrasound 03/10/25 11:13 IMPRESSION: 1. Solid left thyroid mass which is suspicious. Ultrasound-guided fine-needle aspiration biopsy recommended. Abdomen Ultrasound 03/10/25 19:34 IMPRESSION: Unremarkable sonographic evaluation of the right upper quadrant, as detailed above. Orbits/Face/Neck MRI 03/12/25 16:43 IMPRESSION: 1. 2.8 x 2.9 x 1.3 cm homogeneously fatty mass without enhancing soft tissue component in the left parotid gland most consistent with a lipoma. Labs Labs: Laboratory Results - last 24 hr 03/16/25 03/16/25 03/17/25 16:28 20:54 05:41 WBC 6.9 RBC 4.75 Hgb 13.6 L Hct 41.1 L MCV 86.5 MCH 28.6 MCHC 33.1 RDW 14.9 H Plt Count 139 L MPV % Immature Plt Fraction Sodium Potassium Chloride Carbon Dioxide Anion Gap BUN Creatinine Estim Creat Clear Calc Estimated GFR Glucose POC Capillary Glucose 239 H 356 H Calcium 03/17/25 03/17/25 03/17/25 05:41 05:41 07:37 WBC RBC Hgb Hct MCV MCH MCHC RDW Plt Count 151 MPV 10.9 H 10.7 H % Immature Plt Fraction 4.0 Sodium 136 L Potassium 3.6 Chloride 104 Carbon Dioxide 24 Anion Gap 8 BUN 15 Creatinine 0.67 L Estim Creat Clear Calc 111 Estimated GFR > 60 Glucose 249 H POC Capillary Glucose 229 H Calcium 9.5 03/17/25 11:18 WBC RBC Hgb Hct MCV MCH MCHC RDW Plt Count MPV % Immature Plt Fraction Sodium Potassium Chloride Carbon Dioxide Anion Gap BUN Creatinine Estim Creat Clear Calc Estimated GFR Glucose POC Capillary Glucose 293 H Calcium
[2025-03-17 14:00] VITALS: BP 168/67; PULSE 83; RESP 18; TEMP 36.4; O2SAT 99
[2025-03-17] MEDS: INSULIN GLARGINE (*BKC) 100 UNITS/ML 35 UNITS SUB-Q (20:18)
[2025-03-17] MEDS: DIVALPROEX SODIUM ER 500 MG TAB.24H 1500 MG PO (20:20)
[2025-03-17] MEDS: ATORVASTATIN 40 MG TABLET PO (20:21)
[2025-03-17 22:00] VITALS: BP 133/71; PULSE 88; RESP 16; TEMP 36.1; O2SAT 95
[2025-03-18] MEDS: SUCRALFATE SUSP 100 MG/ML 10 ML UDC 1000 MG PO ×4 (05:50→21:01)
[2025-03-18 06:00] VITALS: BP 122/78; PULSE 81; RESP 18; TEMP 36.4; O2SAT 94
[2025-03-18] MEDS: INSULIN ASPART (*BKC) 100 UNITS/ML SUB-Q ×2 (10:02→12:42)
[2025-03-18 10:05] VITALS: PULSE 80
[2025-03-18] MEDS: METOPROLOL SUCCINATE EXT REL 50 MG TABCR PO (10:05)
[2025-03-18] MEDS: CLOPIDOGREL BISULFATE 75 MG TABLET PO (10:05)
[2025-03-18] MEDS: SPIRONOLACTONE 25 MG TABLET PO (10:06)
[2025-03-18] MEDS: CYANOCOBALAMIN 1,000 MCG TABLET 1000 MCG PO (10:06)
[2025-03-18] MEDS: TAMSULOSIN HCL 0.4 MG CAPSULE PO (10:07)
[2025-03-18] MEDS: EMPAGLIFLOZIN 10 MG TABLET PO (10:07)
[2025-03-18] MEDS: PANTOPRAZOLE 40 MG TABLET PO (10:07)
[2025-03-18] MEDS: SACUBITRIL/VALSARTAN 24-26 MG TABLET 1 TAB PO ×2 (10:07→21:01)
[2025-03-18] MEDS: FLUTICASONE PROPIONATE 0.05% NA SPR 16 GM BTL (*BKC) 2 SPRAY NASAL (10:21)
--- NOTE | 2025-03-18 11:16 | PM.IMPN ---
Progress Note: A&P Assessment and Plan (1) Altered mental status: Code(s): R41.82 - Altered mental status, unspecified Status: Acute Assessment and Plan: Patient was found down. WBC was 13K but normal on repeat. Lactic was 2.6 that also normalized on repeat. Possible seizure especially if he was out of his meds. Neurology consulted. Home Keppra dose was continued. TSH normal. B12 level low. Ammonia <9. EEG showed abnormal record due to the presence of bihemispheric theta and delta activity without evidence of any normal activity particularly posteriorly that could be compatible with ongoing neuro degenerative process or postictal state. He remained stable and mental status improved. Consider confusion partially related to B12 deficiency as well. B12 was replaced. We continued Seroquel and Cymbalta at his home dose. Keppra level was low at 8.7. Discussed with neurology who felt Keppra can cause aggressive personality so Keppra stopped and changed to Depakote. Depakote level increased. Monitor mental status. Check Depakote level when appropriate (2) Elevated troponin: Code(s): R79.89 - Other specified abnormal findings of blood chemistry Status: Acute Assessment and Plan: Patient with elevated troponin but flat; Trop peaked at 0.047 Hx of CAD status post stent placement 15 years ago. Recent stress testing did not show any areas of ischemia Echo as mentioned below. Cardiology consulted but did not recommend and further testing Continue Plavix, Toprol and Lipitor (3) Lactic acidosis: Code(s): E87.20 - Acidosis, unspecified Status: Acute Assessment and Plan: As above (4) Abdominal pain: Code(s): R10.9 - Unspecified abdominal pain Status: Acute Assessment and Plan: CT AP showed esophagitis/gastritis with duodenal mucosal hyperemia GI consulted Abd US showing no acute findings. LFTs and Lipase normal. Started on IV Protonix and Sucralfate MagCitrate given with good results. Miralax started. Was on IV Zosyn but now stopped. Abd pain off and on. Having loose stools so we cut Miralax back with benefit Follow (5) B12 deficiency: Code(s): E53.8 - Deficiency of other specified B group vitamins Status: Acute Assessment and Plan: B12 level 165. Replacement ordered. (6) Thyroid mass: Code(s): E07.9 - Disorder of thyroid, unspecified Status: Acute Assessment and Plan: A 5.4cm mostly solid left thyroid mas noted and confirmed by thyroid US. TSH normal. He states he had a thyroid bx a few months ago at [facility] with benign pathology. 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 (8) Cardiomyopathy: Code(s): I42.9 - Cardiomyopathy, unspecified Status: Acute Assessment and Plan: Patient with known cardiomyopathy. Echo showing EF 35%, akinesis noted related to infarct in the mid and distal LAD distribution and mild valve disease. Stable and not in acute CHF. Continue GDMT with Entresto, Spironolactone, Toprol XL; Farxiga on hold and will resume at discharge (started on Empagliflozin here) Cardiology following (9) Diabetes mellitus with hyperglycemia: Code(s): E11.65 - Type 2 diabetes mellitus with hyperglycemia Status: Acute Assessment and Plan: A1c 9.7. The patient's blood glucose was reviewed on 03/18 Home meds include Farxiga, Amaryl. Amaryl held and Lantus started. Glucose better with morning glucose of 161. Continue AccuCheks covering with sliding scale. Hypoglycemia protocol available as needed. Continue diabetic diet. Still elevated after meals so advance Novolog at meals; Continue Lantus (10) Leukocytosis: Code(s): D72.829 - Elevated white blood cell count, unspecified Status: Acute Assessment and Plan: As above. Resolved Plan Thrombocytopenia - Noted and improved. Code status - full DVT prophylaxis - Lovenox Disp - Placement being arranged Subjective Date/time seen: 03/18/25 11:16 Interval history: 75yo male with diabetes and bipolar disorder with behavioral disturbances who presented with confusion. 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 He was reportedly intoxicated and acting aggressively. Eating okay. SLept well. No CP or SOB. Up to the chair yesterday. COmplains of abd pain worse with eating but eating normally. Exam Narrative: AF 97.6 122/78 80 18 94% ra Gen - NARD Chest - CTA bilaterally, nml RR CV - RRR S1/S2 Abd - Soft, no guarding, diffusely tender but not consistent Ext - No pedal edema Psych - Nml mood. Skin - Warm and dry Objective Data Vital Signs Vital Signs: Vital Signs - 24 hr 03/17/25 14:00 03/17/25 20:00 03/17/25 22:00 Temperature 97.5 F L 96.9 F L Pulse Rate 83 88 Respiratory Rate 18 16 Blood Pressure 168/67 H 133/71 Pulse Oximetry 99 95 Oxygen Delivery Room Air 03/18/25 06:00 03/18/25 10:05 Temperature 97.6 F Pulse Rate 81 80 Respiratory Rate 18 Blood Pressure 122/78 Pulse Oximetry 94 Oxygen Delivery Intake/Output Intake/Output: Intake & Output 03/15/25 03/16/25 03/17/25 03/18/25 23:59 23:59 23:59 23:59 Intake Total 1400 1780 2370 200 Output Total 0052 464 5835 700 Balance 100 830 170 -500 Meds/Results Medications: Active Medications Generic Name Dose Route Start Last Admin Trade Name Freq PRN Reason Stop Dose Admin Acetaminophen 650 mg 03/10/25 02:10 03/17/25 17:53 Acetaminophen 325 Mg Tablet PO 650 mg Q4H PRN Administration Mild Pain (1-3) or Fever Albuterol 2 puff 03/10/25 03:51 Albuterol Sulfate (*Sp) Aerosol 1 Puff INHALATION Q4H PRN shortness of breath or wheezing Amlodipine Besylate 5 mg 03/16/25 16:50 03/18/25 10:07 Amlodipine Besylate 5 Mg Tablet PO 5 mg DAILY SCOUT Administration Atorvastatin Calcium 40 mg 03/10/25 21:00 03/17/25 20:21 Atorvastatin 40 Mg Tablet PO 40 mg HS SCOUT Administration Clopidogrel Bisulfate 75 mg 03/10/25 09:00 03/18/25 10:05 Clopidogrel Bisulfate 75 Mg Tablet PO 75 mg DAILY SCOUT Administration Cyanocobalamin 1,000 mcg 03/13/25 09:00 03/18/25 10:06 Cyanocobalamin 1,000 Mcg Tablet PO 1,000 mcg QAM SCOUT Administration Dextrose 12.5 gm 03/12/25 18:46 Dextrose 50% 25 Gm/50 Ml Syringe IV PUSH PRN PRN Hypoglycemia Protocol Divalproex Sodium 1,500 mg 03/17/25 21:00 03/17/25 20:20 Divalproex Sodium Er 500 Mg Tab.24h PO 1,500 mg HS SCOUT Administration Docusate Sodium 100 mg 03/10/25 03:51 Docusate Sodium 100 Mg Capsule PO DAILY PRN constipation Duloxetine HCl 30 mg 03/10/25 03:55 03/17/25 20:21 Duloxetine Hcl 30 Mg Capsule. PO 30 mg HS SCOUT Administration Duloxetine HCl 60 mg 03/10/25 09:00 03/18/25 10:03 Duloxetine Hcl 30 Mg Capsule. PO 60 mg DAILY SCOUT Administration Empagliflozin 10 mg 03/17/25 09:00 03/18/25 10:07 Empagliflozin 10 Mg Tablet PO 10 mg DAILY SCOUT Administration Enoxaparin Sodium 40 mg 03/11/25 09:00 03/18/25 10:23 Enoxaparin 40 Mg/0.4 Ml Syringe SUB-Q Not Given DAILY SCOUT Fluticasone Propionate 2 spray 03/10/25 09:00 03/18/25 10:21 Fluticasone Propionate 0.05% Na Spr 16 Gm Btl (*Bkc) NASAL 2 spray DAILY SCOUT Administration Glucagon 1 mg 03/12/25 18:46 Glucagon For Inj 1 Mg Vial IM PRN PRN Hypoglycemia Protocol Glucose 15 gm 03/12/25 18:46 Glucose Oral Gel 15 Gm Of Glucse In 37.5 Gm Tube PO PRN PRN Hypoglycemia Protocol Dextrose 1,000 mls @ 100 mls/hr 03/12/25 18:46 Dextrose 5% 1,000 Ml IVPB PRN PRN Hypoglycemia Protocol Insulin Aspart 4 - 8 units 03/13/25 08:00 03/18/25 08:23 Insulin Aspart (*Bkc) 100 Units/Ml SUB-Q Not Given TIDWM [facility] Protocol Insulin Aspart 5 units 03/17/25 08:00 03/18/25 10:02 Insulin Aspart (*Bkc) 100 Units/Ml 0.05 units/kg (5 units) 5 units SUB-Q Administration TIDWM [facility] Insulin Glargine 35 units 03/16/25 21:00 03/17/25 20:18 Insulin Glargine (*Bkc) 100 Units/Ml SUB-Q 35 units HS SCOUT Administration Metoprolol Succinate 50 mg 03/10/25 09:00 03/18/25 10:05 Metoprolol Succinate Ext Rel 50 Mg Tabcr PO 50 mg DAILY SCOUT Administration Ondansetron HCl 4 mg 03/10/25 06:19 03/13/25 21:02 Ondansetron Inj 4 Mg/2 Ml Vial IV PUSH 4 mg Q6H PRN Administration Nausea And Vomiting Pantoprazole Sodium 40 mg 03/15/25 09:00 03/18/25 10:07 Pantoprazole 40 Mg Tablet PO 40 mg DAILY SCOUT Administration Polyethylene Glycol 17 gm 03/17/25 09:00 03/17/25 07:26 Polyethylene Glycol 3350 17 Gm Powd.Pack PO Not Given MOWEFR SCOUT Quetiapine Fumarate 200 mg 03/10/25 21:00 03/17/25 20:20 Quetiapine Fumarate 100 Mg Tablet PO 200 mg HS SCOUT Administration Sacubitril/Valsartan 1 tab 03/10/25 09:00 03/18/25 10:07 Sacubitril/Valsartan 24-26 Mg Tablet PO 1 tab Q12HR SCOUT Administration Spironolactone 25 mg 03/10/25 09:00 03/18/25 10:06 Spironolactone 25 Mg Tablet PO 25 mg DAILY SCOUT Administration Sucralfate 1,000 mg 03/10/25 11:30 03/18/25 05:50 Sucralfate Susp 100 Mg/Ml 10 Ml Udc PO 1,000 mg ACHS SCOUT Administration Tamsulosin HCl 0.4 mg 03/10/25 09:00 03/18/25 10:07 Tamsulosin Hcl 0.4 Mg Capsule PO 0.4 mg DAILY SCOUT Administration Radiology Results: ITS Impressions Chest X-Ray 03/09/25 19:35 IMPRESSION: No acute cardiopulmonary process. Head/Neck CTA 03/09/25 20:31 IMPRESSION: No acute intracranial process. No large vessel intracranial occlusion, high-grade intracranial stenosis, or aneurysm. No carotid or vertebral artery occlusion, dissection, or significant stenosis. 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 5.4 mostly solid-appearing left thyroid mass, recommend nonemergent outpatient thyroid ultrasound for further evaluation. Abdomen/Pelvis CT 03/09/25 20:59 IMPRESSION: Mild esophagitis/gastritis. Contracted gallbladder which limits evaluation. Gallbladder mucosal hyperemia may reflect a degree of inflammatory change. Duodenal mucosal hyperemia, may represent mild inflammatory change. Indeterminate density left lower pole renal lesion, stable in size and morphology since the prior examination in 2020, presumably a hemorrhagic or proteinaceous cyst. Urinary bladder distention with wall thickening. May be secondary to outlet obstruction from prostatomegaly. Correlate with urinalysis and symptoms of urinary retention. Thyroid Ultrasound 03/10/25 11:13 IMPRESSION: 1. Solid left thyroid mass which is suspicious. Ultrasound-guided fine-needle aspiration biopsy recommended. Abdomen Ultrasound 03/10/25 19:34 IMPRESSION: Unremarkable sonographic evaluation of the right upper quadrant, as detailed above. Orbits/Face/Neck MRI 03/12/25 16:43 IMPRESSION: 1. 2.8 x 2.9 x 1.3 cm homogeneously fatty mass without enhancing soft tissue component in the left parotid gland most consistent with a lipoma. Labs Labs: Laboratory Results - last 24 hr 03/17/25 03/17/25 03/17/25 11:18 16:03 20:17 POC Capillary Glucose 293 H 167 H 227 H 03/18/25 07:39 POC Capillary Glucose 161 H
[2025-03-18] MEDS: INSULIN ASPART (*BKC) 100 UNITS/ML 8 UNITS SUB-Q ×2 (12:42→17:12)
[2025-03-18 13:56] VITALS: BP 141/65; PULSE 90; RESP 18; TEMP 35.7; O2SAT 96
[2025-03-18] MEDS: ACETAMINOPHEN 325 MG TABLET 650 MG PO (17:42)
--- NOTE | 2025-03-18 19:30 | PC.NURSE ---
On 03/18/25, the TREAD TUBER MACHINE OPERATOR, Angelica Marin, provided care and completed [employer] documentation on this patient. I have reviewed the TREAD TUBER MACHINE OPERATOR's documentation and agree with the findings.
[2025-03-18] MEDS: ATORVASTATIN 40 MG TABLET PO (21:01)
[2025-03-18 21:02] VITALS: BP 130/76; PULSE 70; RESP 18; TEMP 36.3; O2SAT 98
[2025-03-18] MEDS: DIVALPROEX SODIUM ER 500 MG TAB.24H 1500 MG PO (21:02)
[2025-03-18] MEDS: INSULIN GLARGINE (*BKC) 100 UNITS/ML 35 UNITS SUB-Q (21:04)
[2025-03-19 05:26] VITALS: BP 132/66; PULSE 80; RESP 20; TEMP 36.6; O2SAT 98
[2025-03-19] MEDS: SUCRALFATE SUSP 100 MG/ML 10 ML UDC 1000 MG PO ×4 (05:49→20:46)
[2025-03-19] MEDS: INSULIN ASPART (*BKC) 100 UNITS/ML 8 UNITS SUB-Q ×3 (08:04→18:06)
[2025-03-19 08:05] VITALS: PULSE 80
[2025-03-19] MEDS: SPIRONOLACTONE 25 MG TABLET PO (08:05)
[2025-03-19] MEDS: METOPROLOL SUCCINATE EXT REL 50 MG TABCR PO (08:05)
[2025-03-19] MEDS: SACUBITRIL/VALSARTAN 24-26 MG TABLET 1 TAB PO ×2 (08:05→20:47)
[2025-03-19] MEDS: CLOPIDOGREL BISULFATE 75 MG TABLET PO (08:05)
[2025-03-19] MEDS: TAMSULOSIN HCL 0.4 MG CAPSULE PO (08:05)
[2025-03-19] MEDS: PANTOPRAZOLE 40 MG TABLET PO (08:05)
[2025-03-19] MEDS: EMPAGLIFLOZIN 10 MG TABLET PO (08:05)
[2025-03-19] MEDS: CYANOCOBALAMIN 1,000 MCG TABLET 1000 MCG PO (08:06)
[2025-03-19] MEDS: FLUTICASONE PROPIONATE 0.05% NA SPR 16 GM BTL (*BKC) 2 SPRAY NASAL (08:12)
--- NOTE | 2025-03-19 08:36 | PM.IMPN ---
Progress Note: A&P Assessment and Plan (1) Altered mental status: Code(s): R41.82 - Altered mental status, unspecified Status: Acute Assessment and Plan: Patient was found down. WBC was 13K but normal on repeat. Lactic was 2.6 that also normalized on repeat. Possible seizure especially if he was out of his meds. Neurology consulted. Home Keppra dose was continued. TSH normal. B12 level low. Ammonia <9. EEG showed abnormal record due to the presence of bihemispheric theta and delta activity without evidence of any normal activity particularly posteriorly that could be compatible with ongoing neuro degenerative process or postictal state. He remained stable and mental status improved. Consider confusion partially related to B12 deficiency as well. B12 was replaced. We continued Seroquel and Cymbalta at his home dose. Keppra level was low at 8.7. Discussed with neurology who felt Keppra can cause aggressive personality so Keppra stopped and changed to Depakote. Depakote level increased. Monitor mental status. Check Depakote level when appropriate (2) Elevated troponin: Code(s): R79.89 - Other specified abnormal findings of blood chemistry Status: Acute Assessment and Plan: Patient with elevated troponin but flat; Trop peaked at 0.047 Hx of CAD status post stent placement 15 years ago. Recent stress testing did not show any areas of ischemia Echo as mentioned below. Cardiology consulted but did not recommend and further testing Continue Plavix, Toprol and Lipitor (3) Lactic acidosis: Code(s): E87.20 - Acidosis, unspecified Status: Acute Assessment and Plan: As above (4) Abdominal pain: Code(s): R10.9 - Unspecified abdominal pain Status: Acute Assessment and Plan: CT AP showed esophagitis/gastritis with duodenal mucosal hyperemia GI consulted Abd US showing no acute findings. LFTs and Lipase normal. Started on IV Protonix and Sucralfate MagCitrate given with good results. Miralax started. Was on IV Zosyn but now stopped. Abd pain off and on. Having loose stools so we cut Miralax back with benefit Follow (5) B12 deficiency: Code(s): E53.8 - Deficiency of other specified B group vitamins Status: Acute Assessment and Plan: B12 level 165. Replacement ordered. (6) Thyroid mass: Code(s): E07.9 - Disorder of thyroid, unspecified Status: Acute Assessment and Plan: A 5.4cm mostly solid left thyroid mas noted and confirmed by thyroid US. TSH normal. He states he had a thyroid bx a few months ago at [facility] with benign pathology. 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 (8) Cardiomyopathy: Code(s): I42.9 - Cardiomyopathy, unspecified Status: Acute Assessment and Plan: Patient with known cardiomyopathy. Echo showing EF 35%, akinesis noted related to infarct in the mid and distal LAD distribution and mild valve disease. Stable and not in acute CHF. Continue GDMT with Entresto, Spironolactone, Toprol XL; Farxiga on hold and will resume at discharge (started on Empagliflozin here) Cardiology following (9) Diabetes mellitus with hyperglycemia: Code(s): E11.65 - Type 2 diabetes mellitus with hyperglycemia Status: Acute Assessment and Plan: A1c 9.7. The patient's blood glucose was reviewed on 03/18 Home meds include Farxiga, Amaryl. Amaryl held and Lantus started. Glucose better with morning glucose of 161. Continue AccuCheks covering with sliding scale. Hypoglycemia protocol available as needed. Continue diabetic diet. Still elevated after meals so advance Novolog at meals; Continue Lantus (10) Leukocytosis: Code(s): D72.829 - Elevated white blood cell count, unspecified Status: Acute Assessment and Plan: As above. Resolved Plan Thrombocytopenia - Noted and improved. Code status - full DVT prophylaxis - Lovenox Disp - Placement being arranged Subjective Date/time seen: 03/19/25 08:37 Interval history: No overnight events. Discussed the nursing staff. Eating okay. Still weak. Work with therapy yesterday. Review of Systems Review of Systems: All systems reviewed & are unremarkable except as noted in HPI and below (Subjective) Exam Narrative: Gen - NARD Chest - CTA bilaterally, nml RR CV - RRR S1/S2 Abd - Soft, no guarding, nontender Ext - No pedal edema Psych - Nml mood. Skin - Warm and dry Objective Data Vital Signs Vital Signs: Vital Signs - 24 hr 03/18/25 10:05 03/18/25 13:56 03/18/25 20:00 Temperature 96.2 F L Pulse Rate 80 90 Respiratory Rate 18 Blood Pressure 141/65 H Pulse Oximetry 96 Oxygen Delivery Room Air 03/18/25 21:02 03/19/25 05:26 03/19/25 08:05 Temperature 97.4 F L 97.8 F Pulse Rate 70 80 80 Respiratory Rate 18 20 Blood Pressure 130/76 132/66 Pulse Oximetry 98 98 Oxygen Delivery Intake/Output Intake/Output: Intake & Output 03/16/25 03/17/25 03/18/25 03/19/25 23:59 23:59 23:59 23:59 Intake Total 1780 2370 1780 350 Output Total 950 2200 1250 1100 Balance 830 170 530 -750 Meds/Results Medications: Active Medications Generic Name Dose Route Start Last Admin Trade Name Freq PRN Reason Stop Dose Admin Acetaminophen 650 mg 03/10/25 02:10 03/18/25 17:42 Acetaminophen 325 Mg Tablet PO 650 mg Q4H PRN Administration Mild Pain (1-3) or Fever Albuterol 2 puff 03/10/25 03:51 Albuterol Sulfate (*Sp) Aerosol 1 Puff INHALATION Q4H PRN shortness of breath or wheezing Amlodipine Besylate 5 mg 03/16/25 16:50 03/19/25 08:05 Amlodipine Besylate 5 Mg Tablet PO 5 mg DAILY SCOUT Administration Atorvastatin Calcium 40 mg 03/10/25 21:00 03/18/25 21:01 Atorvastatin 40 Mg Tablet PO 40 mg HS SCOUT Administration Clopidogrel Bisulfate 75 mg 03/10/25 09:00 03/19/25 08:05 Clopidogrel Bisulfate 75 Mg Tablet PO 75 mg DAILY SCOUT Administration Cyanocobalamin 1,000 mcg 03/13/25 09:00 03/19/25 08:06 Cyanocobalamin 1,000 Mcg Tablet PO 1,000 mcg QAM SCOUT Administration Dextrose 12.5 gm 03/12/25 18:46 Dextrose 50% 25 Gm/50 Ml Syringe IV PUSH PRN PRN Hypoglycemia Protocol Divalproex Sodium 1,500 mg 03/17/25 21:00 03/18/25 21:02 Divalproex Sodium Er 500 Mg Tab.24h PO 1,500 mg HS SCOUT Administration Docusate Sodium 100 mg 03/10/25 03:51 Docusate Sodium 100 Mg Capsule PO DAILY PRN constipation Duloxetine HCl 30 mg 03/10/25 03:55 03/18/25 21:01 Duloxetine Hcl 30 Mg Capsule. PO 30 mg HS SCOUT Administration Duloxetine HCl 60 mg 03/10/25 09:00 03/19/25 08:06 Duloxetine Hcl 30 Mg Capsule. PO 60 mg DAILY SCOUT Administration Empagliflozin 10 mg 03/17/25 09:00 03/19/25 08:05 Empagliflozin 10 Mg Tablet PO 10 mg DAILY SCOUT Administration Enoxaparin Sodium 40 mg 03/11/25 09:00 03/19/25 08:12 Enoxaparin 40 Mg/0.4 Ml Syringe SUB-Q Not Given DAILY SCOUT Fluticasone Propionate 2 spray 03/10/25 09:00 03/19/25 08:12 Fluticasone Propionate 0.05% Na Spr 16 Gm Btl (*Bkc) NASAL 2 spray DAILY SCOUT Administration Glucagon 1 mg 03/12/25 18:46 Glucagon For Inj 1 Mg Vial IM PRN PRN Hypoglycemia Protocol Glucose 15 gm 03/12/25 18:46 Glucose Oral Gel 15 Gm Of Glucse In 37.5 Gm Tube PO PRN PRN Hypoglycemia Protocol Dextrose 1,000 mls @ 100 mls/hr 03/12/25 18:46 Dextrose 5% 1,000 Ml IVPB PRN PRN Hypoglycemia Protocol Insulin Aspart 4 - 8 units 03/13/25 08:00 03/19/25 08:04 Insulin Aspart (*Bkc) 100 Units/Ml SUB-Q Not Given TIDWM SCOUT Protocol Insulin Aspart 8 units 03/18/25 12:00 03/19/25 08:04 Insulin Aspart (*Bkc) 100 Units/Ml SUB-Q 8 units TIDWM SCOUT Administration Insulin Glargine 35 units 03/16/25 21:00 03/18/25 21:04 Insulin Glargine (*Bkc) 100 Units/Ml SUB-Q 35 units HS SCOUT Administration Metoprolol Succinate 50 mg 03/10/25 09:00 03/19/25 08:05 Metoprolol Succinate Ext Rel 50 Mg Tabcr PO 50 mg DAILY SCOUT Administration Ondansetron HCl 4 mg 03/10/25 06:19 03/13/25 21:02 Ondansetron Inj 4 Mg/2 Ml Vial IV PUSH 4 mg Q6H PRN Administration Nausea And Vomiting Pantoprazole Sodium 40 mg 03/15/25 09:00 03/19/25 08:05 Pantoprazole 40 Mg Tablet PO 40 mg DAILY SCOUT Administration Polyethylene Glycol 17 gm 03/17/25 09:00 03/19/25 08:12 Polyethylene Glycol 3350 17 Gm Powd.Pack PO Not Given MOWEFR SCOUT Quetiapine Fumarate 200 mg 03/10/25 21:00 03/18/25 21:02 Quetiapine Fumarate 100 Mg Tablet PO 200 mg HS SCOUT Administration Sacubitril/Valsartan 1 tab 03/10/25 09:00 03/19/25 08:05 Sacubitril/Valsartan 24-26 Mg Tablet PO 1 tab Q12HR SCOUT Administration Spironolactone 25 mg 03/10/25 09:00 03/19/25 08:05 Spironolactone 25 Mg Tablet PO 25 mg DAILY SCOUT Administration Sucralfate 1,000 mg 03/10/25 11:30 03/19/25 05:49 Sucralfate Susp 100 Mg/Ml 10 Ml Udc PO 1,000 mg ACHS SCOUT Administration Tamsulosin HCl 0.4 mg 03/10/25 09:00 03/19/25 08:05 Tamsulosin Hcl 0.4 Mg Capsule PO 0.4 mg DAILY SCOUT Administration Radiology Results: ITS Impressions Chest X-Ray 03/09/25 19:35 IMPRESSION: No acute cardiopulmonary process. Head/Neck CTA 03/09/25 20:31 IMPRESSION: No acute intracranial process. No large vessel intracranial occlusion, high-grade intracranial stenosis, or aneurysm. No carotid or vertebral artery occlusion, dissection, or significant stenosis. 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 5.4 mostly solid-appearing left thyroid mass, recommend nonemergent outpatient thyroid ultrasound for further evaluation. Abdomen/Pelvis CT 03/09/25 20:59 IMPRESSION: Mild esophagitis/gastritis. Contracted gallbladder which limits evaluation. Gallbladder mucosal hyperemia may reflect a degree of inflammatory change. Duodenal mucosal hyperemia, may represent mild inflammatory change. Indeterminate density left lower pole renal lesion, stable in size and morphology since the prior examination in 2020, presumably a hemorrhagic or proteinaceous cyst. Urinary bladder distention with wall thickening. May be secondary to outlet obstruction from prostatomegaly. Correlate with urinalysis and symptoms of urinary retention. Thyroid Ultrasound 03/10/25 11:13 IMPRESSION: 1. Solid left thyroid mass which is suspicious. Ultrasound-guided fine-needle aspiration biopsy recommended. Abdomen Ultrasound 03/10/25 19:34 IMPRESSION: Unremarkable sonographic evaluation of the right upper quadrant, as detailed above. Orbits/Face/Neck MRI 03/12/25 16:43 IMPRESSION: 1. 2.8 x 2.9 x 1.3 cm homogeneously fatty mass without enhancing soft tissue component in the left parotid gland most consistent with a lipoma. Labs Labs: Laboratory Results - last 24 hr 03/18/25 03/18/25 03/18/25 11:03 16:38 19:47 POC Capillary Glucose 234 H 159 H 215 H 03/19/25 07:54 POC Capillary Glucose 171 H
--- NOTE | 2025-03-19 10:35 | PCNFU ---
Nutrition Follow-Up Complete: Suboptimal PO intake related to loss of appetite as evidenced by intakes ~50% Intakes >75% - Meeting goal. Continue same goal Goal: Pt current nutrition is Diabetic consistent carb diet. Ensure +HP BID (350 kcal, 20 g protein). Nutrition recommendation: No new recommendations. Continue same orders Last recorded weight is 106.5 kg. Bowel Motility: +1 BM 03/17/25 Labs Reviewed: No labs since 03/17 Meds Noted: depakote Skin: No skin issues Additional Notes: Intakes are good 75-100%. 10% breakfast this morning. Continue orders. Agree with current orders Monitoring intakes, weights, labs, supplement tolerance, plan of care Follow up in 5 days
[2025-03-19 13:58] VITALS: BP 124/74; PULSE 73; RESP 18; TEMP 36.2; O2SAT 97
--- NOTE | 2025-03-19 19:00 | PC.NURSE ---
On 03/19/25, the SPANISH INTERPRETER, Angelica Marin, provided care and completed [employer] documentation on this patient. I have reviewed the SPANISH INTERPRETER's documentation and agree with the findings.
[2025-03-19] MEDS: DIVALPROEX SODIUM ER 500 MG TAB.24H 1500 MG PO (20:46)
[2025-03-19] MEDS: INSULIN GLARGINE (*BKC) 100 UNITS/ML 35 UNITS SUB-Q (20:47)
[2025-03-19] MEDS: ATORVASTATIN 40 MG TABLET PO (20:47)
[2025-03-19] MEDS: ACETAMINOPHEN 325 MG TABLET 650 MG PO (20:59)
[2025-03-19 21:24] VITALS: BP 142/61; PULSE 80; RESP 18; TEMP 36.6; O2SAT 97
[2025-03-20] VITALS (10 sets, daily range): BP systolic 121–153; BP diastolic 64–83; PULSE 68–98; RESP 12–18; TEMP 36.2–36.5; O2SAT 96–100
--- NOTE | 2025-03-20 00:24 | ECG_ITS ---
Test Date: 2025-03-20 00:56:19 Measurements Intervals [place] Rate: 63 P: 54 [place]: 189 QRS: -41 QRSD: 141 T: 0 QT: 422 QTc: 432 Interpretive Statements SINUS RHYTHM LEFT AXIS DEVIATION LEFT BUNDLE BRANCH BLOCK BASELINE WANDER- V1-V2, V4-V6 ABNORMAL ECG Compared to ECG 03/10/2025 00:36:03 NO SIGNIFICANT CHANGE Electronically Signed On 03-20-2025 06:29:00 CDT by Onur Toussaint D.O.
--- NOTE | 2025-03-20 00:30 | PM.EVENT ---
Event Note Event Note Event Note: Rapid response called at 0020 when nursing staff heard a thud and found patient on his knees in the room--unwitnessed fall. Patient reported to be lethargic and diaphoretic. Glucose 156. Patient snoring with short episodes of sleep apnea noted. Ordered ABG and stat labs. Ordered CT scan of the head noncontrast because it is unknown if patient hit his head and he has altered level of consciousness right now. Suspect that patient had a seizure. Will obtain valproic acid level. He was previously on Keppra but it was believed that Keppra may have been contributing to his behavior issues thus he was started on Depakote. My independent interpretation of CT scan of the head no obvious intracranial bleeding but there is movement artifact present. Throughout the evening patient did wake up open is eyes and began to speak again but then he fell back asleep and had some gross tremors that may have another seizure.
[2025-03-20 00:35] LABS: Alveolar/Arterial O2 Gradient 75.5 mmHg; Fractional Inspired Oxygen 32 %; HCO3 ABG 23.3 mEq/l (22.0-26.0); Oxygen Content ABG 19.2 %vol (16.0-22.0); Oxygen Saturation ABG 98.2 % (95.0-100.0); PCO2 ABG 35.9 mmHg (35.0-45.0); PO2 ABG 110.7 mmHg (80.0-100.0); PO2 FiO2 Ratio Arterial Blood 3.46 %
[2025-03-20 00:37] LABS: Modified Allen's Test Pass; Site Drawn RIGHT RADIAL
[2025-03-20 00:38] LABS: Liters per Minute 3.0 LPM
[2025-03-20 00:47] LABS: Hematocrit 41.2 % (42.0-52.0); Hemoglobin 13.3 g/dL (14.0-18.0); Immature Granulocyte Percent A 0.5 % (0-0.5); Immature Platelet Fraction Pct 4.0 % (0.9-11.2); Lymphocytes Absolute Auto 1.72 K/mm3 (0.9-3.2); Mean Corpuscular HGB Conc 32.3 g/dl (32-36); Mean Corpuscular Hemoglobin 28.5 pg (26-34); Mean Corpuscular Volume 88.2 fl (80-100); Nucleated Red Blood Cells Absolute Auto 0.000 K/mm3 (0.0-0.012); Nucleated Red Blood Cells Perc 0.0 % (0.0-0.2); Platelet Count Result 134 k/mm3 (150-375); Red Blood Count 4.67 M/mm3 (4.6-6.20); White Blood Count 6.5 K/mm3 (4.5-10.0)
[2025-03-20 00:59] LABS: Alanine Aminotransferase 20 U/L (6-50); Albumin Level 4.1 g/dL (3.5-5.1); Alkaline Phosphatase 83 U/L (38-126); Anion Gap 8 mmol/L (4-12); Aspartate Amino Transferase 23 U/L (17-59); Bilirubin,Total 0.5 mg/dL (0.2-1.3); Blood Urea Nitrogen 20 mg/dL (9-20); Calcium 9.4 mg/dL (8.4-10.2); Carbon Dioxide 23 mmol/L (22-30); Chloride 103 mmol/L (98-107); Estimated CRCL calculation 77 ml/min; Estimated Glomerular Filt Rate > 60; Glucose 151 mg/dL (65-110); Magnesium 2.0 mg/dL (1.6-2.3); Potassium 3.7 mmol/L (3.4-5.0); Sodium 134 mmol/L (137-145); Total Protein 6.6 g/dL (6.3-8.2)
[2025-03-20 01:00] LABS: Add Urine Microscopic? NO; Appearance Urine Clear (Clear); Glucose Urine UA 3+ mg/dL (Negative); Leukocyte Esterase Ur Negative LEU/UL (Negative); Nitrate Urine Negative (Negative); Specific Grav Ur 1.041 (1.001-1.035)
[2025-03-20 01:09] LABS: Troponin I 0.019 ng/mL (0.000-0.034)
[2025-03-20 04:29] LABS: Troponin I 0.034 ng/mL (0.000-0.034)
[2025-03-20 06:59] LABS: Troponin I 0.093 ng/mL (0.000-0.034)
[2025-03-20] MEDS: ENOXAPARIN 40 MG/0.4 ML SYRINGE SUB-Q (08:24)
--- NOTE | 2025-03-20 08:37 | PC.NURSE ---
Pt in possible postictal state from possible seizure last night, pt is arousable but hard to arouse. Was not able to give pt his morning PO medication, is aware.
[2025-03-20] MEDS: SUCRALFATE SUSP 100 MG/ML 10 ML UDC 1000 MG PO ×3 (12:19→20:33)
[2025-03-20] MEDS: INSULIN ASPART (*BKC) 100 UNITS/ML 8 UNITS SUB-Q ×2 (12:19→17:43)
[2025-03-20] MEDS: INSULIN ASPART (*BKC) 100 UNITS/ML SUB-Q ×2 (12:20→17:44)
--- NOTE | 2025-03-20 13:07 | P.PNCA_ITS ---
Progress Note: A&P Assessment and Plan (1) Elevated troponin: Code(s): R79.89 - Other specified abnormal findings of blood chemistry Status: Acute Assessment and Plan: Mild troponin elevation in the setting of possible seizure. He has no symptoms that are concerning for ACS. No plan for ischemic evaluation at this time. Repeat troponin tomorrow to make sure troponin peaked. (2) Coronary artery disease: Code(s): I25.10 - Atherosclerotic heart disease of redding coronary artery without angina pectoris Status: Acute Assessment and Plan: History of OK with one stent placed ~15 years ago per patient report. Continue plavix and statin. (3) Cardiomyopathy: Code(s): I42.9 - Cardiomyopathy, unspecified Status: Acute Assessment and Plan: Severe, EF 22% in September 2024. Improved to 35% by echo this admission. Does not appear to be in acute decompensated heart failure. Continue with his current medical regimen including Entresto, farxiga, spironolactone, and ToprolXL. Furosemide p.r.n. Outpatient evaluation for ICD. (4) Mixed hyperlipidemia: Code(s): E78.2 - Mixed hyperlipidemia Status: Acute Assessment and Plan: Continue statin. Subjective Date/time seen: 03/20/25 13:07 Interval history: Cardiology follow up visit Reconsulted to see patient because of elevated troponin. He had a fall last night which prompted labs to be drawn. Initial troponin negative, 3 hour 0.034, 6 hour 0.093. He has right sided chest pain that is reproducible to palpation. Comfortable and has no complaints at the time of my visit. Review of Systems Review of Systems: All systems reviewed & are unremarkable except as noted in HPI and below Exam Const: General: comfortable, no acute distress, alert and awake Orientation/consciousness: patient oriented x3 HENMT: Head: normal to inspection Eyes: General: appearance normal, both eyes and all related structures Pupils: Equal, round and reactive pupils present Neck: Neck: normal visual inspection, supple and no JVD Carotids: normal carotid upstroke Chest: Other: reproducible chest wall pain to palpation (right side) Resp: Effort & Inspection: normal respiratory effort Auscultation: clear to auscultation bilaterally Cardio: Rate: regular rate Rhythm: regular rhythm Heart sounds: Murmur heart sound present systolic GI: Auscultation: normal bowel sounds Skin: General skin exam: normal color Neuro: General: patient oriented x3 Cranial nerves: Yes Equal, round and reactive pupils present Extrem: General: normal to inspection Psych: Appearance: grossly normal Affect: normal affect Objective Data Vital Signs Vital Signs: Vital Signs - 24 hr 03/19/25 13:58 03/19/25 21:24 03/20/25 00:16 Temperature 36.2 C L 36.6 C Pulse Rate 73 80 68 Respiratory Rate 18 18 18 Blood Pressure 124/74 142/61 H 121/83 Pulse Oximetry 97 97 100 Oxygen Delivery Nasal Cannula Oxygen Flow Rate 3 03/20/25 01:53 03/20/25 05:11 03/20/25 08:00 Temperature 36.2 C L 36.2 C L Pulse Rate 68 88 Respiratory Rate 12 Blood Pressure 121/83 138/64 Pulse Oximetry 98 96 Oxygen Delivery Room Air Oxygen Flow Rate 03/20/25 08:03 Temperature Pulse Rate 84 Respiratory Rate Blood Pressure Pulse Oximetry Oxygen Delivery Oxygen Flow Rate Intake/Output Intake/Output: Intake & Output 03/17/25 03/18/25 03/19/25 03/20/25 23:59 23:59 23:59 23:59 Intake Total 2370 1780 947 240 Output Total 2200 1250 1900 630 Balance 170 172 -873 -045 Meds/Results Medications: Active Medications Generic Name Dose Route Start Last Admin Trade Name Freq PRN Reason Stop Dose Admin Acetaminophen 650 mg 03/10/25 02:10 03/19/25 20:59 Acetaminophen 325 Mg Tablet PO 650 mg Q4H PRN Administration Mild Pain (1-3) or Fever Albuterol 2 puff 03/10/25 03:51 Albuterol Sulfate (*Sp) Aerosol 1 Puff INHALATION Q4H PRN shortness of breath or wheezing Amlodipine Besylate 5 mg 03/16/25 16:50 03/20/25 08:35 Amlodipine Besylate 5 Mg Tablet PO Not Given DAILY SCOUT Atorvastatin Calcium 40 mg 03/10/25 21:00 03/19/25 20:47 Atorvastatin 40 Mg Tablet PO 40 mg HS SCOUT Administration Clopidogrel Bisulfate 75 mg 03/10/25 09:00 03/20/25 08:35 Clopidogrel Bisulfate 75 Mg Tablet PO Not Given DAILY SCOUT Cyanocobalamin 1,000 mcg 03/13/25 09:00 03/20/25 08:35 Cyanocobalamin 1,000 Mcg Tablet PO Not Given QAM SCOUT Dextrose 12.5 gm 03/12/25 18:46 Dextrose 50% 25 Gm/50 Ml Syringe IV PUSH PRN PRN Hypoglycemia Protocol Divalproex Sodium 1,500 mg 03/17/25 21:00 03/19/25 20:46 Divalproex Sodium Er 500 Mg Tab.24h PO 1,500 mg HS SCOUT Administration Docusate Sodium 100 mg 03/10/25 03:51 Docusate Sodium 100 Mg Capsule PO DAILY PRN constipation Duloxetine HCl 30 mg 03/10/25 03:55 03/19/25 20:46 Duloxetine Hcl 30 Mg Capsule. PO 30 mg HS SCOUT Administration Duloxetine HCl 60 mg 03/10/25 09:00 03/20/25 08:35 Duloxetine Hcl 30 Mg Capsule. PO Not Given DAILY SCOUT Empagliflozin 10 mg 03/17/25 09:00 03/20/25 08:35 Empagliflozin 10 Mg Tablet PO Not Given DAILY SCOUT Enoxaparin Sodium 40 mg 03/11/25 09:00 03/20/25 08:24 Enoxaparin 40 Mg/0.4 Ml Syringe SUB-Q 40 mg DAILY SCOUT Administration Fluticasone Propionate 2 spray 03/10/25 09:00 03/20/25 08:36 Fluticasone Propionate 0.05% Na Spr 16 Gm Btl (*Bkc) NASAL Not Given DAILY SCOUT Glucagon 1 mg 03/12/25 18:46 Glucagon For Inj 1 Mg Vial IM PRN PRN Hypoglycemia Protocol Glucose 15 gm 03/12/25 18:46 Glucose Oral Gel 15 Gm Of Glucse In 37.5 Gm Tube PO PRN PRN Hypoglycemia Protocol Dextrose 1,000 mls @ 100 mls/hr 03/12/25 18:46 Dextrose 5% 1,000 Ml IVPB PRN PRN Hypoglycemia Protocol Insulin Aspart 4 - 8 units 03/13/25 08:00 03/20/25 12:20 Insulin Aspart (*Bkc) 100 Units/Ml SUB-Q 4 units TIDWM SCOUT Administration Protocol Insulin Aspart 8 units 03/18/25 12:00 03/20/25 12:19 Insulin Aspart (*Bkc) 100 Units/Ml SUB-Q 8 units TIDWM SCOUT Administration Insulin Glargine 35 units 03/16/25 21:00 03/19/25 20:47 Insulin Glargine (*Bkc) 100 Units/Ml SUB-Q 35 units HS SCOUT Administration Metoprolol Succinate 50 mg 03/10/25 09:00 03/20/25 08:36 Metoprolol Succinate Ext Rel 50 Mg Tabcr PO Not Given DAILY SCOUT Ondansetron HCl 4 mg 03/10/25 06:19 03/13/25 21:02 Ondansetron Inj 4 Mg/2 Ml Vial IV PUSH 4 mg Q6H PRN Administration Nausea And Vomiting Pantoprazole Sodium 40 mg 03/15/25 09:00 03/20/25 08:36 Pantoprazole 40 Mg Tablet PO Not Given DAILY SCOUT Polyethylene Glycol 17 gm 03/17/25 09:00 03/19/25 08:12 Polyethylene Glycol 3350 17 Gm Powd.Pack PO Not Given MOWEFR SCOUT Quetiapine Fumarate 200 mg 03/10/25 21:00 03/19/25 20:47 Quetiapine Fumarate 100 Mg Tablet PO 200 mg HS SCOUT Administration Sacubitril/Valsartan 1 tab 03/10/25 09:00 03/20/25 08:36 Sacubitril/Valsartan 24-26 Mg Tablet PO Not Given Q12HR SCOUT Spironolactone 25 mg 03/10/25 09:00 03/20/25 08:36 Spironolactone 25 Mg Tablet PO Not Given DAILY [facility] Sucralfate 1,000 mg 03/10/25 11:30 03/20/25 12:19 Sucralfate Susp 100 Mg/Ml 10 Ml Udc PO 1,000 mg ACHS SCOUT Administration Tamsulosin HCl 0.4 mg 03/10/25 09:00 03/20/25 08:36 Tamsulosin Hcl 0.4 Mg Capsule PO Not Given DAILY [facility] Radiology Results: ITS Impressions Chest X-Ray 03/09/25 19:35 IMPRESSION: No acute cardiopulmonary process. Head/Neck CTA 03/09/25 20:31 IMPRESSION: No acute intracranial process. No large vessel intracranial occlusion, high-grade intracranial stenosis, or aneurysm. No carotid or vertebral artery occlusion, dissection, or significant stenosis. 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 5.4 mostly solid-appearing left thyroid mass, recommend nonemergent outpatient thyroid ultrasound for further evaluation. Abdomen/Pelvis CT 03/09/25 20:59 IMPRESSION: Mild esophagitis/gastritis. Contracted gallbladder which limits evaluation. Gallbladder mucosal hyperemia may reflect a degree of inflammatory change. Duodenal mucosal hyperemia, may represent mild inflammatory change. Indeterminate density left lower pole renal lesion, stable in size and morphology since the prior examination in 2020, presumably a hemorrhagic or proteinaceous cyst. Urinary bladder distention with wall thickening. May be secondary to outlet obstruction from prostatomegaly. Correlate with urinalysis and symptoms of urinary retention. Thyroid Ultrasound 03/10/25 11:13 IMPRESSION: 1. Solid left thyroid mass which is suspicious. Ultrasound-guided fine-needle aspiration biopsy recommended. Abdomen Ultrasound 03/10/25 19:34 IMPRESSION: Unremarkable sonographic evaluation of the right upper quadrant, as detailed above. Orbits/Face/Neck MRI 03/12/25 16:43 IMPRESSION: 1. 2.8 x 2.9 x 1.3 cm homogeneously fatty mass without enhancing soft tissue c omponent in the left parotid gland most consistent with a lipoma. Head CT 03/20/25 05:31 Impression: No intracranial hemorrhage, mass, or acute infarct. Atrophy and chronic white matter changes, as above. Labs Labs: Laboratory Results - last 24 hr 03/19/25 03/19/25 03/20/25 16:24 20:04 00:14 WBC RBC Hgb Hct MCV MCH MCHC RDW Plt Count MPV Immature Gran % (Auto) Neut % (Auto) Lymph % (Auto) [place] % (Auto) Eos % (Auto) Baso % (Auto) Lymph # (Auto) [place] # (Auto) Eos # (Auto) Baso # (Auto) Abs Immat Gran (auto) Absolute Neuts (auto) Absolute Nucleated RBC Nucleated RBC % % Immature Plt Fraction Puncture Site ABG pH ABG pCO2 ABG pO2 ABG PO2/FiO2 Ratio ABG HCO3 ABG O2 Saturation ABG O2 Content ABG Base Excess A-a Gradient Oxyhemoglobin Total Hemoglobin O2 Delivery Device O2 Liters/Min FiO2 Sodium Potassium Chloride Carbon Dioxide Anion Gap BUN Creatinine Estim Creat Clear Calc Estimated GFR Glucose POC Capillary Glucose 188 H 243 H 156 H Calcium Magnesium Total Bilirubin AST ALT Alkaline Phosphatase Troponin I Total Protein Albumin Urine Color Urine Appearance Urine pH Ur Specific [place] Urine Protein Urine Glucose (UA) Urine Ketones Ur Blood (Man) Urine Nitrate Urine Bilirubin Urine Urobilinogen Leukocyte Esterase Rfl Valproic Acid 03/20/25 03/20/25 03/20/25 00:28 00:38 00:51 WBC 6.5 RBC 4.67 Hgb 13.3 L Hct 41.2 L MCV 88.2 MCH 28.5 MCHC 32.3 RDW 15.0 H Plt Count 134 L MPV 10.4 Immature Gran % (Auto) 0.5 Neut % (Auto) 60.5 Lymph % (Auto) 26.5 [place] % (Auto) 10.0 H Eos % (Auto) 2.0 Baso % (Auto) 0.5 Lymph # (Auto) 1.72 [place] # (Auto) 0.7 H Eos # (Auto) 0.1 Baso # (Auto) 0.0 Abs Immat Gran (auto) 0.03 Absolute Neuts (auto) 3.9 Absolute Nucleated RBC 0.000 Nucleated RBC % 0.0 % Immature Plt Fraction 4.0 Puncture Site Right radial ABG pH 7.430 ABG pCO2 35.9 ABG pO2 110.7 H ABG PO2/FiO2 Ratio 3.46 ABG HCO3 23.3 ABG O2 Saturation 98.2 ABG O2 Content 19.2 ABG Base Excess -0.5 A-a Gradient 75.5 Oxyhemoglobin 97.1 Total Hemoglobin 14.0 O2 Delivery Device Nasal cannula O2 Liters/Min 3.0 FiO2 32 Sodium 134 L Potassium 3.7 Chloride 103 Carbon Dioxide 23 Anion Gap 8 BUN 20 Creatinine 0.87 Estim Creat Clear Calc 77 Estimated GFR > 60 Glucose 151 H POC Capillary Glucose Calcium 9.4 Magnesium 2.0 Total Bilirubin 0.5 AST 23 ALT 20 Alkaline Phosphatase 83 Troponin I 0.019 Total Protein 6.6 Albumin 4.1 Urine Color Yellow Urine Appearance Clear Urine pH 5.5 Ur Specific [place] 1.041 H Urine Protein Negative Urine Glucose (UA) 3+ H Urine Ketones 1+ H Ur Blood (Man) Negative Urine Nitrate Negative Urine Bilirubin Negative Urine Urobilinogen 0.2 Leukocyte Esterase Rfl Negative Valproic Acid 03/20/25 03/20/25 03/20/25 03:41 06:19 07:45 WBC RBC Hgb Hct MCV MCH MCHC RDW Plt Count MPV Immature Gran % (Auto) Neut % (Auto) Lymph % (Auto) [place] % (Auto) Eos % (Auto) Baso % (Auto) Lymph # (Auto) [place] # (Auto) Eos # (Auto) Baso # (Auto) Abs Immat Gran (auto) Absolute Neuts (auto) Absolute Nucleated RBC Nucleated RBC % % Immature Plt Fraction Puncture Site ABG pH ABG pCO2 ABG pO2 ABG PO2/FiO2 Ratio ABG HCO3 ABG O2 Saturation ABG O2 Content ABG Base Excess A-a Gradient Oxyhemoglobin Total Hemoglobin O2 Delivery Device O2 Liters/Min FiO2 Sodium Potassium Chloride Carbon Dioxide Anion Gap BUN Creatinine Estim Creat Clear Calc Estimated GFR Glucose POC Capillary Glucose 178 H Calcium Magnesium Total Bilirubin AST ALT Alkaline Phosphatase Troponin I 0.034 D 0.093 H* D Total Protein Albumin Urine Color Urine Appearance Urine pH Ur Specific [place] Urine Protein Urine Glucose (UA) Urine Ketones Ur Blood (Man) Urine Nitrate Urine Bilirubin Urine Urobilinogen Leukocyte Esterase Rfl Valproic Acid 93.0 03/20/25 11:29 WBC RBC Hgb Hct MCV MCH MCHC RDW Plt Count MPV Immature Gran % (Auto) Neut % (Auto) Lymph % (Auto) [place] % (Auto) Eos % (Auto) Baso % (Auto) Lymph # (Auto) [place] # (Auto) Eos # (Auto) Baso # (Auto) Abs Immat Gran (auto) Absolute Neuts (auto) Absolute Nucleated RBC Nucleated RBC % % Immature Plt Fraction Puncture Site ABG pH ABG pCO2 ABG pO2 ABG PO2/FiO2 Ratio ABG HCO3 ABG O2 Saturation ABG O2 Content ABG Base Excess A-a Gradient Oxyhemoglobin Total Hemoglobin O2 Delivery Device O2 Liters/Min FiO2 Sodium Potassium Chloride Carbon Dioxide Anion Gap BUN Creatinine Estim Creat Clear Calc Estimated GFR Glucose POC Capillary Glucose 204 H Calcium Magnesium Total Bilirubin AST ALT Alkaline Phosphatase Troponin I Total Protein Albumin Urine Color Urine Appearance Urine pH Ur Specific [place] Urine Protein Urine Glucose (UA) Urine Ketones Ur Blood (Man) Urine Nitrate Urine Bilirubin Urine Urobilinogen Leukocyte Esterase Rfl Valproic Acid
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
[2025-03-20] MEDS: DIVALPROEX SODIUM ER 500 MG TAB.24H 1500 MG PO (20:33)
[2025-03-20] MEDS: SACUBITRIL/VALSARTAN 24-26 MG TABLET 1 TAB PO (20:34)
[2025-03-20] MEDS: ATORVASTATIN 40 MG TABLET PO (20:34)
[2025-03-20] MEDS: INSULIN GLARGINE (*BKC) 100 UNITS/ML 35 UNITS SUB-Q (20:39)
[2025-03-20] MEDS: ACETAMINOPHEN 325 MG TABLET 650 MG PO (20:48)
[2025-03-21] VITALS (11 sets, daily range): BP systolic 110–147; BP diastolic 66–76; PULSE 56–125; RESP 20; TEMP 36.3–37.3; O2SAT 95–100
[2025-03-21] MEDS: SUCRALFATE SUSP 100 MG/ML 10 ML UDC 1000 MG PO ×4 (05:43→21:13)
[2025-03-21 06:37] LABS: Hematocrit 44.6 % (42.0-52.0); Hemoglobin 14.3 g/dL (14.0-18.0); Immature Granulocyte Percent A 0.5 % (0-0.5); Lymphocytes Absolute Auto 1.63 K/mm3 (0.9-3.2); Mean Corpuscular HGB Conc 32.1 g/dl (32-36); Mean Corpuscular Hemoglobin 28.4 pg (26-34); Mean Corpuscular Volume 88.7 fl (80-100); Nucleated Red Blood Cells Absolute Auto 0.000 K/mm3 (0.0-0.012); Nucleated Red Blood Cells Perc 0.0 % (0.0-0.2); Platelet Count Result 146 k/mm3 (150-375); Red Blood Count 5.03 M/mm3 (4.6-6.20); White Blood Count 13.1 K/mm3 (4.5-10.0)
[2025-03-21 07:10] LABS: Anion Gap 12 mmol/L (4-12); Blood Urea Nitrogen 19 mg/dL (9-20); Calcium 9.3 mg/dL (8.4-10.2); Carbon Dioxide 24 mmol/L (22-30); Chloride 103 mmol/L (98-107); Estimated CRCL calculation 75 ml/min; Estimated Glomerular Filt Rate > 60; Glucose 179 mg/dL (65-110); Magnesium 2.1 mg/dL (1.6-2.3); Potassium 3.5 mmol/L (3.4-5.0); Sodium 139 mmol/L (137-145)
[2025-03-21 07:24] LABS: Troponin I 0.098 ng/mL (0.000-0.034)
[2025-03-21] MEDS: ENOXAPARIN 40 MG/0.4 ML SYRINGE SUB-Q (08:37)
--- NOTE | 2025-03-21 09:03 | ECG_ITS ---
Test Date: 2025-03-21 09:37:51 Measurements Intervals [place] Rate: 112 P: 56 [place]: 166 QRS: -44 QRSD: 117 T: 94 QT: 338 QTc: 462 Interpretive Statements SINUS TACHYCARDIA LEFT AXIS DEVIATION INCOMPLETE LEFT BUNDLE BRANCH BLOCK CANNOT R/O SEPTAL INFARCT, AGE INDETERMINATE BORDERLINE ST-T WAVE ABNORMALITY- HIGH LATERAL LEADS ABNORMAL ECG Compared to ECG 03/20/2025 00:56:19 HEART RATE HAS INCREASED Electronically Signed On 03-21-2025 09:45:32 CDT by Onur Toussaint D.O.
[2025-03-21] MEDS: FLUTICASONE PROPIONATE 0.05% NA SPR 16 GM BTL (*BKC) 2 SPRAY NASAL (10:25)
[2025-03-21] MEDS: METOPROLOL SUCCINATE EXT REL 50 MG TABCR PO (10:49)
[2025-03-21] MEDS: SPIRONOLACTONE 25 MG TABLET PO (10:49)
[2025-03-21] MEDS: EMPAGLIFLOZIN 10 MG TABLET PO (10:49)
[2025-03-21] MEDS: PANTOPRAZOLE 40 MG TABLET PO (10:49)
[2025-03-21] MEDS: TAMSULOSIN HCL 0.4 MG CAPSULE PO (10:51)
[2025-03-21] MEDS: CLOPIDOGREL BISULFATE 75 MG TABLET PO (10:52)
[2025-03-21] MEDS: CYANOCOBALAMIN 1,000 MCG TABLET 1000 MCG PO (10:52)
[2025-03-21] MEDS: SACUBITRIL/VALSARTAN 24-26 MG TABLET 1 TAB PO ×2 (10:52→21:13)
[2025-03-21] MEDS: INSULIN ASPART (*BKC) 100 UNITS/ML 8 UNITS SUB-Q ×2 (12:17→17:44)
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
[2025-03-21] MEDS: ACETAMINOPHEN 325 MG TABLET 650 MG PO (14:31)
[2025-03-21 15:11] LABS: Procalcitonin 0.1 ng/mL
[2025-03-21 15:16] LABS: Troponin I 0.067 ng/mL (0.000-0.034)
[2025-03-21] MEDS: ATORVASTATIN 40 MG TABLET PO (21:12)
[2025-03-21] MEDS: DIVALPROEX SODIUM ER 500 MG TAB.24H 1500 MG PO (21:13)
[2025-03-21] MEDS: INSULIN GLARGINE (*BKC) 100 UNITS/ML 35 UNITS SUB-Q (21:13)
[2025-03-21] MEDS: HYDROcodone/acetaminophen (*CRX) 5-325 MG TABLET 1 TAB PO (21:38)
[2025-03-22] VITALS (13 sets, daily range): BP systolic 121–157; BP diastolic 49–72; PULSE 57–128; RESP 18–20; TEMP 36.7–38.2; O2SAT 90–100
[2025-03-22] MEDS: SUCRALFATE SUSP 100 MG/ML 10 ML UDC 1000 MG PO ×4 (05:08→22:41)
[2025-03-22 05:53] LABS: Hematocrit 40.7 % (42.0-52.0); Hemoglobin 13.6 g/dL (14.0-18.0); Immature Granulocyte Percent A 0.6 % (0-0.5); Lymphocytes Absolute Auto 1.23 K/mm3 (0.9-3.2); Mean Corpuscular HGB Conc 33.4 g/dl (32-36); Mean Corpuscular Hemoglobin 28.8 pg (26-34); Mean Corpuscular Volume 86.2 fl (80-100); Nucleated Red Blood Cells Absolute Auto 0.000 K/mm3 (0.0-0.012); Nucleated Red Blood Cells Perc 0.0 % (0.0-0.2); Platelet Count Result 122 k/mm3 (150-375); Red Blood Count 4.72 M/mm3 (4.6-6.20); White Blood Count 23.0 K/mm3 (4.5-10.0)
[2025-03-22 06:21] LABS: Anion Gap 12 mmol/L (4-12); Blood Urea Nitrogen 23 mg/dL (9-20); Calcium 8.9 mg/dL (8.4-10.2); Carbon Dioxide 22 mmol/L (22-30); Chloride 99 mmol/L (98-107); Estimated CRCL calculation 58 ml/min; Estimated Glomerular Filt Rate 53; Glucose 147 mg/dL (65-110); Magnesium 1.8 mg/dL (1.6-2.3); Potassium 3.5 mmol/L (3.4-5.0); Sodium 133 mmol/L (137-145)
[2025-03-22] MEDS: CYANOCOBALAMIN 1,000 MCG TABLET 1000 MCG PO (10:39)
[2025-03-22] MEDS: MAGNESIUM SULF 2 GM/WATER 50ML 2 GM/50 ML BAG IVPB (10:39)
[2025-03-22] MEDS: PANTOPRAZOLE 40 MG TABLET PO (10:39)
[2025-03-22] MEDS: TAMSULOSIN HCL 0.4 MG CAPSULE PO (10:40)
[2025-03-22] MEDS: EMPAGLIFLOZIN 10 MG TABLET PO (10:40)
[2025-03-22] MEDS: SACUBITRIL/VALSARTAN 24-26 MG TABLET 1 TAB PO ×2 (10:40→22:41)
[2025-03-22] MEDS: CLOPIDOGREL BISULFATE 75 MG TABLET PO (10:40)
[2025-03-22] MEDS: SPIRONOLACTONE 25 MG TABLET PO (10:40)
[2025-03-22] MEDS: LIDOCAINE 5% PATCH 1 PATCH TRANSDERM (10:41)
[2025-03-22] MEDS: ENOXAPARIN 40 MG/0.4 ML SYRINGE SUB-Q (10:41)
[2025-03-22 12:02] LABS: Procalcitonin 0.5 ng/mL
[2025-03-22] MEDS: BISACODYL 10 MG SUPPOSITORY RECTAL (12:19)
[2025-03-22] MEDS: POTASSIUM CHLORIDE INJ 40 MEQ in SODIUM CHLORIDE 0.9% IV 500 ML 130 MEQ IVPB (12:20)
[2025-03-22] MEDS: INSULIN ASPART (*BKC) 100 UNITS/ML SUB-Q (12:22)
[2025-03-22] MEDS: INSULIN ASPART (*BKC) 100 UNITS/ML 8 UNITS SUB-Q (12:23)
--- NOTE | 2025-03-22 13:32 | PM.PNCARD ---
Progress Note: A&P Assessment and Plan (1) Elevated troponin: Code(s): R79.89 - Other specified abnormal findings of blood chemistry Status: Acute Assessment and Plan: Mild troponin elevation in the setting of possible seizure. He has no symptoms that are concerning for ACS. No plan for ischemic evaluation at this time. (2) Coronary artery disease: Code(s): I25.10 - Atherosclerotic heart disease of [place] coronary artery without angina pectoris Status: Acute Assessment and Plan: History of [place] with one stent placed ~15 years ago per patient report. Continue plavix and statin. (3) Cardiomyopathy: Code(s): I42.9 - Cardiomyopathy, unspecified Status: Acute Assessment and Plan: Severe, EF 22% in September 2024. Improved to 35% by echo this admission. Does not appear to be in acute decompensated heart failure. Continue with his current medical regimen including Entresto, farxiga, spironolactone, and ToprolXL. Furosemide p.r.n. Outpatient evaluation for ICD. (4) Mixed hyperlipidemia: Code(s): E78.2 - Mixed hyperlipidemia Status: Acute Assessment and Plan: Continue statin. Subjective Date/time seen: 03/22/25 13:32 Interval history: Reason for the encounter evaluation for elevated troponin Chief complaint body aches involving hip joints Interval history no acute events Telemetry sinus rhythm with first-degree heart block Review of Systems Review of Systems: All systems reviewed & are unremarkable except as noted in HPI and below Exam Const: General: comfortable, no acute distress, alert and awake Orientation/consciousness: patient oriented x3 HENMT: Head: normal to inspection Eyes: General: appearance normal, both eyes and all related structures Pupils: Equal, round and reactive pupils present Neck: Neck: normal visual inspection, supple and no JVD Carotids: normal carotid upstroke Chest: Other: reproducible chest wall pain to palpation (right side) Resp: Effort & Inspection: normal respiratory effort Auscultation: clear to auscultation bilaterally Cardio: Rate: regular rate Rhythm: regular rhythm Heart sounds: Murmur heart sound present systolic GI: Auscultation: normal bowel sounds Skin: General skin exam: normal color Neuro: General: patient oriented x3 Cranial nerves: Yes Equal, round and reactive pupils present Extrem: General: normal to inspection Psych: Appearance: grossly normal Affect: normal affect Objective Data Vital Signs Vital Signs: Vital Signs - 24 hr 08/08/25 14:00 03/21/25 16:00 03/21/25 20:00 Temperature 37.3 C Pulse Rate 111 H 110 H Respiratory Rate 20 Blood Pressure 147/69 H Pulse Oximetry 100 Oxygen Delivery Room Air 03/21/25 20:00 03/21/25 20:52 03/22/25 00:00 Temperature 36.7 C Pulse Rate 125 H 56 L 122 H Respiratory Rate 20 Blood Pressure 110/66 Pulse Oximetry 97 Oxygen Delivery 03/22/25 04:00 03/22/25 06:00 03/22/25 08:04 Temperature 37.3 C Pulse Rate 123 H 57 L 90 Respiratory Rate 20 Blood Pressure 121/49 L Pulse Oximetry 96 Oxygen Delivery 03/22/25 08:48 03/22/25 09:20 Temperature Pulse Rate 57 L Respiratory Rate Blood Pressure 141/68 H Pulse Oximetry 97 Oxygen Delivery Room Air Intake/Output Intake/Output: Intake & Output 03/19/25 03/20/25 03/21/25 03/22/25 23:59 23:59 23:59 23:59 Intake Total 947 1580 2480 1340 Output Total 1900 1030 2300 175 Balance -953 993 843 3783 Meds/Results Medications: Active Medications Generic Name Dose Route Start Last Admin Trade Name Freq PRN Reason Stop Dose Admin Acetaminophen 650 mg 03/10/25 02:10 03/21/25 14:31 Acetaminophen 325 Mg Tablet PO 650 mg Q4H PRN Administration Mild Pain (1-3) or Fever Hydrocodone Bitart/Acetaminophen 1 tab 03/21/25 21:00 03/21/25 21:38 Hydrocodone/Acetaminophen (*Crx) 5-325 Mg Tablet PO 1 tab Q6H PRN Administration Pain Rated 4-6 Albuterol 2 puff 03/10/25 03:51 Albuterol Sulfate (*Sp) Aerosol 1 Puff INHALATION Q4H PRN shortness of breath or wheezing Amlodipine Besylate 5 mg 03/16/25 16:50 03/22/25 10:39 Amlodipine Besylate 5 Mg Tablet PO 5 mg DAILY SCOUT Administration Atorvastatin Calcium 40 mg 03/10/25 21:00 03/21/25 21:12 Atorvastatin 40 Mg Tablet PO 40 mg HS SCOUT Administration Clopidogrel Bisulfate 75 mg 03/10/25 09:00 03/22/25 10:40 Clopidogrel Bisulfate 75 Mg Tablet PO 75 mg DAILY SCOUT Administration Cyanocobalamin 1,000 mcg 03/13/25 09:00 03/22/25 10:39 Cyanocobalamin 1,000 Mcg Tablet PO 1,000 mcg QAM SCOUT Administration Dextrose 12.5 gm 03/12/25 18:46 Dextrose 50% 25 Gm/50 Ml Syringe IV PUSH PRN PRN Hypoglycemia Protocol Divalproex Sodium 1,500 mg 03/17/25 21:00 03/21/25 21:13 Divalproex Sodium Er 500 Mg Tab.24h PO 1,500 mg HS SCOUT Administration Docusate Sodium 100 mg 03/10/25 03:51 Docusate Sodium 100 Mg Capsule PO DAILY PRN constipation Duloxetine HCl 30 mg 03/10/25 03:55 03/21/25 21:13 Duloxetine Hcl 30 Mg Capsule. PO 30 mg HS SCOUT Administration Duloxetine HCl 60 mg 03/10/25 09:00 03/22/25 10:40 Duloxetine Hcl 30 Mg Capsule. PO 60 mg DAILY SCOUT Administration Empagliflozin 10 mg 03/17/25 09:00 03/22/25 10:40 Empagliflozin 10 Mg Tablet PO 10 mg DAILY SCOUT Administration Enoxaparin Sodium 40 mg 03/11/25 09:00 03/22/25 10:41 Enoxaparin 40 Mg/0.4 Ml Syringe SUB-Q 40 mg DAILY SCOUT Administration Fluticasone Propionate 2 spray 03/10/25 09:00 03/22/25 10:43 Fluticasone Propionate 0.05% Na Spr 16 Gm Btl (*Bkc) NASAL Not Given DAILY SCOUT Glucagon 1 mg 03/12/25 18:46 Glucagon For Inj 1 Mg Vial IM PRN PRN Hypoglycemia Protocol Glucose 15 gm 03/12/25 18:46 Glucose Oral Gel 15 Gm Of Glucse In 37.5 Gm Tube PO PRN PRN Hypoglycemia Protocol Dextrose 1,000 mls @ 100 mls/hr 03/12/25 18:46 Dextrose 5% 1,000 Ml IVPB PRN PRN Hypoglycemia Protocol Potassium Chloride 40 meq/ 520 mls @ 130 mls/hr 03/22/25 10:00 03/22/25 12:20 Sodium Chloride IVPB 03/22/25 13:59 130 mls/hr ONCE ONE Administration Insulin Aspart 4 - 8 units 03/13/25 08:00 03/22/25 12:22 Insulin Aspart (*Bkc) 100 Units/Ml SUB-Q 4 units TIDWM SCOUT Administration Protocol Insulin Aspart 8 units 03/18/25 12:00 03/22/25 12:23 Insulin Aspart (*Bkc) 100 Units/Ml SUB-Q 8 units TIDWM SCOUT Administration Insulin Glargine 35 units 03/16/25 21:00 03/21/25 21:13 Insulin Glargine (*Bkc) 100 Units/Ml SUB-Q 35 units HS SCOUT Administration Lidocaine 1 patch 03/22/25 09:00 03/22/25 10:41 Lidocaine 5% Patch TRANSDERM 1 patch DAILY SCOUT Administration Metoprolol Succinate 50 mg 03/10/25 09:00 03/22/25 10:40 Metoprolol Succinate Ext Rel 50 Mg Tabcr PO Not Given DAILY SCOUT Ondansetron HCl 4 mg 03/10/25 06:19 03/13/25 21:02 Ondansetron Inj 4 Mg/2 Ml Vial IV PUSH 4 mg Q6H PRN Administration Nausea And Vomiting Pantoprazole Sodium 40 mg 03/15/25 09:00 03/22/25 10:39 Pantoprazole 40 Mg Tablet PO 40 mg DAILY SCOUT Administration Polyethylene Glycol 17 gm 03/22/25 09:35 03/22/25 10:39 Polyethylene Glycol 3350 17 Gm Powd.Pack PO 17 gm QAM SCOUT Administration Quetiapine Fumarate 200 mg 03/10/25 21:00 03/21/25 21:12 Quetiapine Fumarate 100 Mg Tablet PO 200 mg HS SCOUT Administration Sacubitril/Valsartan 1 tab 03/10/25 09:00 03/22/25 10:40 Sacubitril/Valsartan 24-26 Mg Tablet PO 1 tab Q12HR SCOUT Administration Spironolactone 25 mg 03/10/25 09:00 03/22/25 10:40 Spironolactone 25 Mg Tablet PO 25 mg DAILY SCOUT Administration Sucralfate 1,000 mg 03/10/25 11:30 03/22/25 12:19 Sucralfate Susp 100 Mg/Ml 10 Ml Udc PO 1,000 mg ACHS SCOUT Administration Tamsulosin HCl 0.4 mg 03/10/25 09:00 03/22/25 10:40 Tamsulosin Hcl 0.4 Mg Capsule PO 0.4 mg DAILY SCOUT Administration Radiology Results: ITS Impressions Head/Neck CTA 03/09/25 20:31 IMPRESSION: No acute intracranial process. No large vessel intracranial occlusion, high-grade intracranial stenosis, or aneurysm. No carotid or vertebral artery occlusion, dissection, or significant stenosis. 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 5.4 mostly solid-appearing left thyroid mass, recommend nonemergent outpatient thyroid ultrasound for further evaluation. Abdomen/Pelvis CT 03/09/25 20:59 IMPRESSION: Mild esophagitis/gastritis. Contracted gallbladder which limits evaluation. Gallbladder mucosal hyperemia may reflect a degree of inflammatory change. Duodenal mucosal hyperemia, may represent mild inflammatory change. Indeterminate density left lower pole renal lesion, stable in size and morphology since the prior examination in 2020, presumably a hemorrhagic or proteinaceous cyst. Urinary bladder distention with wall thickening. May be secondary to outlet obstruction from prostatomegaly. Correlate with urinalysis and symptoms of urinary retention. Thyroid Ultrasound 03/10/25 11:13 IMPRESSION: 1. Solid left thyroid mass which is suspicious. Ultrasound-guided fine-needle aspiration biopsy recommended. Abdomen Ultrasound 03/10/25 19:34 IMPRESSION: Unremarkable sonographic evaluation of the right upper quadrant, as detailed above. Orbits/Face/Neck MRI 03/12/25 16:43 IMPRESSION: 1. 2.8 x 2.9 x 1.3 cm homogeneously fatty mass without enhancing soft tissue component in the left parotid gland most consistent with a lipoma. Head CT 03/20/25 05:31 Impression: No intracranial hemorrhage, mass, or acute infarct. Atrophy and chronic white matter changes, as above. Abdomen X-Ray 03/21/25 09:44 IMPRESSION: 1: No acute abdominal abnormality identified. Chest X-Ray 03/22/25 11:12 IMPRESSION: 1. Decreasing opacities at the left lower lung zone consistent with improving atelectasis or pneumonia Labs Labs: Laboratory Results - last 24 hr 03/21/25 03/21/25 03/21/25 14:26 14:27 16:47 WBC RBC Hgb Hct MCV MCH MCHC RDW Plt Count MPV Immature Gran % (Auto) Neut % (Auto) Lymph % (Auto) [place] % (Auto) Eos % (Auto) Baso % (Auto) Lymph # (Auto) [place] # (Auto) Eos # (Auto) Baso # (Auto) Abs Immat Gran (auto) Absolute Neuts (auto) Absolute Nucleated RBC Nucleated RBC % Sodium Potassium Chloride Carbon Dioxide Anion Gap BUN Creatinine Estim Creat Clear Calc Estimated GFR Glucose POC Capillary Glucose 173 H Calcium Magnesium Troponin I 0.067 H* Procalcitonin 0.1 03/21/25 03/22/25 03/22/25 19:56 05:45 07:23 WBC 23.0 H RBC 4.72 Hgb 13.6 L Hct 40.7 L MCV 86.2 MCH 28.8 MCHC 33.4 RDW 14.7 H Plt Count 122 L MPV 10.6 H Immature Gran % (Auto) 0.6 H Neut % (Auto) 84.0 H Lymph % (Auto) 5.4 L [place] % (Auto) 9.8 H Eos % (Auto) 0.0 Baso % (Auto) 0.2 Lymph # (Auto) 1.23 [place] # (Auto) 2.3 H Eos # (Auto) 0.0 Baso # (Auto) 0.0 Abs Immat Gran (auto) 0.14 H Absolute Neuts (auto) 19.3 H Absolute Nucleated RBC 0.000 Nucleated RBC % 0.0 Sodium 133 L Potassium 3.5 Chloride 99 Carbon Dioxide 22 Anion Gap 12 BUN 23 H Creatinine 1.33 H Estim Creat Clear Calc 58 Estimated GFR 53 L Glucose 147 H POC Capillary Glucose 142 H 149 H Calcium 8.9 Magnesium 1.8 Troponin I Procalcitonin 0.5 03/22/25 11:39 WBC RBC Hgb Hct MCV MCH MCHC RDW Plt Count MPV Immature Gran % (Auto) Neut % (Auto) Lymph % (Auto) [place] % (Auto) Eos % (Auto) Baso % (Auto) Lymph # (Auto) [place] # (Auto) Eos # (Auto) Baso # (Auto) Abs Immat Gran (auto) Absolute Neuts (auto) Absolute Nucleated RBC Nucleated RBC % Sodium Potassium Chloride Carbon Dioxide Anion Gap BUN Creatinine Estim Creat Clear Calc Estimated GFR Glucose POC Capillary Glucose 218 H Calcium Magnesium Troponin I Procalcitonin
[2025-03-22 13:36] LABS: Influenza A QL RT-PCR Negative (Negative); Influenza B QL RT-PCR Negative (Negative); RSV RNA, RT-PCR Negative (Negative); SARS-CoV-2 RNA PCR Negative (Negative)
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
[2025-03-22] MEDS: ACETAMINOPHEN 325 MG TABLET 650 MG PO (15:33)
[2025-03-22] MEDS: CEFEPIME 2 GM in SODIUM CHLORIDE 0.9% IV 50 ML 100 ML IVPB (16:51)
[2025-03-22 17:08] LABS: Add Urine Microscopic? YES; Appearance Urine Clear (Clear); Glucose Urine UA 3+ mg/dL (Negative); Leukocyte Esterase Ur 1+ LEU/UL (Negative); Nitrate Urine Positive (Negative); Non Pathogenic Casts 0-2; Specific Grav Ur 1.027 (1.001-1.035)
[2025-03-22] MEDS: VANCOMYCIN 1,750 MG/NS 500 ML 1,750 MG/500 ML BAG 250 MG IVPB (17:49)
[2025-03-22 19:35] LABS: MRSA (PCR) NOT DETECTED (NOT DETECTE)
[2025-03-22] MEDS: LACTATED RINGERS 1,000 ML 100 ML IV CONT (21:53)
[2025-03-22] MEDS: DIVALPROEX SODIUM ER 500 MG TAB.24H 1500 MG PO (21:53)
[2025-03-22] MEDS: INSULIN GLARGINE (*BKC) 100 UNITS/ML 35 UNITS SUB-Q (21:54)
[2025-03-22] MEDS: ATORVASTATIN 40 MG TABLET PO (22:41)
[2025-03-23] VITALS (11 sets, daily range): BP systolic 144–156; BP diastolic 47–58; PULSE 51–125; RESP 16–22; TEMP 36.7–37.1; O2SAT 97
[2025-03-23] MEDS: CEFEPIME 2 GM in SODIUM CHLORIDE 0.9% IV 50 ML 100 ML IVPB ×2 (03:13→16:14)
[2025-03-23] MEDS: SUCRALFATE SUSP 100 MG/ML 10 ML UDC 1000 MG PO ×4 (05:16→20:26)
[2025-03-23 06:28] LABS: Hematocrit 35.3 % (42.0-52.0); Hemoglobin 11.4 g/dL (14.0-18.0); Immature Granulocyte Percent A 1.1 % (0-0.5); Lymphocytes Absolute Auto 0.82 K/mm3 (0.9-3.2); Mean Corpuscular HGB Conc 32.3 g/dl (32-36); Mean Corpuscular Hemoglobin 28.5 pg (26-34); Mean Corpuscular Volume 88.3 fl (80-100); Nucleated Red Blood Cells Absolute Auto 0.000 K/mm3 (0.0-0.012); Nucleated Red Blood Cells Perc 0.0 % (0.0-0.2); Platelet Count Result 114 k/mm3 (150-375); Red Blood Count 4.00 M/mm3 (4.6-6.20); White Blood Count 16.6 K/mm3 (4.5-10.0)
[2025-03-23 06:44] LABS: Anion Gap 7 mmol/L (4-12); Blood Urea Nitrogen 29 mg/dL (9-20); Calcium 8.4 mg/dL (8.4-10.2); Carbon Dioxide 22 mmol/L (22-30); Chloride 99 mmol/L (98-107); Estimated CRCL calculation 63 ml/min; Estimated Glomerular Filt Rate 58; Glucose 182 mg/dL (65-110); Magnesium 2.3 mg/dL (1.6-2.3); Potassium 3.4 mmol/L (3.4-5.0); Sodium 128 mmol/L (137-145)
[2025-03-23 07:02] LABS: Procalcitonin 0.7 ng/mL
[2025-03-23] MEDS: METOPROLOL SUCCINATE EXT REL 50 MG TABCR PO (08:23)
[2025-03-23] MEDS: CYANOCOBALAMIN 1,000 MCG TABLET 1000 MCG PO (08:23)
[2025-03-23] MEDS: EMPAGLIFLOZIN 10 MG TABLET PO (08:23)
[2025-03-23] MEDS: CLOPIDOGREL BISULFATE 75 MG TABLET PO (08:23)
[2025-03-23] MEDS: TAMSULOSIN HCL 0.4 MG CAPSULE PO (08:24)
[2025-03-23] MEDS: PANTOPRAZOLE 40 MG TABLET PO (08:24)
[2025-03-23] MEDS: SPIRONOLACTONE 25 MG TABLET PO (08:24)
[2025-03-23] MEDS: SACUBITRIL/VALSARTAN 24-26 MG TABLET 1 TAB PO ×2 (08:24→20:26)
[2025-03-23] MEDS: LIDOCAINE 5% PATCH 1 PATCH TRANSDERM (08:25)
[2025-03-23] MEDS: INSULIN ASPART (*BKC) 100 UNITS/ML 8 UNITS SUB-Q ×2 (08:26→12:29)
[2025-03-23] MEDS: FLUTICASONE PROPIONATE 0.05% NA SPR 16 GM BTL (*BKC) 2 SPRAY NASAL (08:26)
[2025-03-23] MEDS: LACTATED RINGERS 1,000 ML 100 ML IV CONT ×2 (09:23→20:14)
[2025-03-23] MEDS: INSULIN ASPART (*BKC) 100 UNITS/ML SUB-Q (12:29)
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
[2025-03-23 16:23] LABS: Anion Gap 6 mmol/L (4-12); Blood Urea Nitrogen 31 mg/dL (9-20); Calcium 8.4 mg/dL (8.4-10.2); Carbon Dioxide 23 mmol/L (22-30); Chloride 101 mmol/L (98-107); Estimated CRCL calculation 70 ml/min; Estimated Glomerular Filt Rate > 60; Glucose 160 mg/dL (65-110); Potassium 3.9 mmol/L (3.4-5.0); Sodium 130 mmol/L (137-145)
[2025-03-23] MEDS: VANCOMYCIN 1,750 MG/NS 500 ML 1,750 MG/500 ML BAG 250 MG IVPB (17:54)
[2025-03-23] MEDS: DIVALPROEX SODIUM ER 500 MG TAB.24H 1500 MG PO (20:26)
[2025-03-23] MEDS: ATORVASTATIN 40 MG TABLET PO (20:26)
[2025-03-23] MEDS: INSULIN GLARGINE (*BKC) 100 UNITS/ML 35 UNITS SUB-Q (20:27)
[2025-03-23] MEDS: HYDROcodone/acetaminophen (*CRX) 5-325 MG TABLET 1 TAB PO (22:40)
[2025-03-24] VITALS (11 sets, daily range): BP systolic 133–167; BP diastolic 46–51; PULSE 53–109; RESP 19–22; TEMP 36.6; O2SAT 97–100
[2025-03-24] MEDS: CEFEPIME 2 GM in SODIUM CHLORIDE 0.9% IV 50 ML 100 ML IVPB ×2 (03:27→16:01)
[2025-03-24] MEDS: SUCRALFATE SUSP 100 MG/ML 10 ML UDC 1000 MG PO ×3 (06:02→20:43)
[2025-03-24 06:03] LABS: Hematocrit 34.4 % (42.0-52.0); Hemoglobin 11.1 g/dL (14.0-18.0); Immature Granulocyte Percent A 0.7 % (0-0.5); Immature Platelet Fraction Pct 7.5 % (0.9-11.2); Lymphocytes Absolute Auto 0.61 K/mm3 (0.9-3.2); Mean Corpuscular HGB Conc 32.3 g/dl (32-36); Mean Corpuscular Hemoglobin 28.5 pg (26-34); Mean Corpuscular Volume 88.4 fl (80-100); Nucleated Red Blood Cells Absolute Auto 0.000 K/mm3 (0.0-0.012); Nucleated Red Blood Cells Perc 0.0 % (0.0-0.2); Platelet Count Result 94 k/mm3 (150-375); Red Blood Count 3.89 M/mm3 (4.6-6.20); White Blood Count 9.5 K/mm3 (4.5-10.0)
[2025-03-24 06:25] LABS: Estimated CRCL calculation 74 ml/min; Estimated Glomerular Filt Rate > 60; Magnesium 2.3 mg/dL (1.6-2.3)
[2025-03-24] MEDS: LACTATED RINGERS 1,000 ML 100 ML IV CONT ×2 (09:16→22:29)
[2025-03-24] MEDS: METOPROLOL SUCCINATE EXT REL 50 MG TABCR PO (09:22)
[2025-03-24] MEDS: TAMSULOSIN HCL 0.4 MG CAPSULE PO (09:23)
[2025-03-24] MEDS: SACUBITRIL/VALSARTAN 24-26 MG TABLET 1 TAB PO ×2 (09:23→20:43)
[2025-03-24] MEDS: EMPAGLIFLOZIN 10 MG TABLET PO (09:24)
[2025-03-24] MEDS: CYANOCOBALAMIN 1,000 MCG TABLET 1000 MCG PO (09:24)
[2025-03-24] MEDS: LIDOCAINE 5% PATCH 1 PATCH TRANSDERM (09:24)
[2025-03-24] MEDS: PANTOPRAZOLE 40 MG TABLET PO (09:24)
[2025-03-24] MEDS: CLOPIDOGREL BISULFATE 75 MG TABLET PO (09:24)
[2025-03-24] MEDS: FLUTICASONE PROPIONATE 0.05% NA SPR 16 GM BTL (*BKC) 2 SPRAY NASAL (09:25)
[2025-03-24] MEDS: SPIRONOLACTONE 25 MG TABLET PO (09:26)
--- NOTE | 2025-03-24 10:35 | PCOTNOTE ---
Attempted to see for OT session at this time. MD present, Patient having increased difficulty with arousal and unable to participate at this time. RN notified and aware.
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
--- NOTE | 2025-03-24 11:56 | PCNFU ---
Nutrition Follow-Up Complete: Suboptimal PO intake related to loss of appetite as evidenced by intakes ~50% Goal:Intakes >75% Pt meeting goal, continue with same goal Pt current nutrition is Diabetic consistent carb, Ensure shakes BID. Nutrition recommendation: continue with current plan of care Last recorded weight is 115.6 kg. Bowel Motility: +BM 03/22 Labs Reviewed: Hgb:11.1, HCT:34.4, Glu:147 Meds Noted: lovenox, protonix, lantus, miralax Skin: WNL Additional Notes: Pt continues on a diabetic diet, intakes good at 100% most meals, Glucerna shakes ordered. Encourage po intake and continue with current plan of care. Monitoring intakes, weights, labs, supplement tolerance, plan of care Follow up in 7 days
[2025-03-24 12:07] LABS: Chloride, Urine <20 mmol/L (Not Estab.)
--- NOTE | 2025-03-24 12:34 | PCPTNOTE ---
Attempted PT 2x today. First attempt patient unable to stay awake to participate. Returned this afternoon and patient is awake, however refused PT stating he was going to stay in bed.
--- NOTE | 2025-03-24 13:44 | PCOTNOTE ---
Per RN, and MD, Patient was awake and talkative earlier for a short period of time. Therapist attempted again this afternoon. Patient is now very sleepy, difficult to arouse, decreased alertness, unable to participate.
[2025-03-24] MEDS: INSULIN ASPART (*BKC) 100 UNITS/ML 8 UNITS SUB-Q (17:20)
[2025-03-24] MEDS: VANCOMYCIN 1,750 MG/NS 500 ML 1,750 MG/500 ML BAG 250 MG IVPB (17:20)
[2025-03-24] MEDS: INSULIN ASPART (*BKC) 100 UNITS/ML SUB-Q (17:21)
[2025-03-24] MEDS: ATORVASTATIN 40 MG TABLET PO (20:43)
[2025-03-24] MEDS: DIVALPROEX SODIUM ER 500 MG TAB.24H 1500 MG PO (20:43)
[2025-03-24] MEDS: INSULIN GLARGINE (*BKC) 100 UNITS/ML 35 UNITS SUB-Q (20:46)
[2025-03-25] VITALS (10 sets, daily range): BP systolic 129–162; BP diastolic 54–69; PULSE 63–100; RESP 14–20; TEMP 36.2–36.7; O2SAT 95–98
[2025-03-25] MEDS: CEFEPIME 2 GM in SODIUM CHLORIDE 0.9% IV 50 ML 100 ML IVPB ×2 (04:25→17:44)
[2025-03-25 06:04] LABS: Hematocrit 35.3 % (42.0-52.0); Hemoglobin 11.2 g/dL (14.0-18.0); Mean Corpuscular HGB Conc 31.7 g/dl (32-36); Mean Corpuscular Hemoglobin 28.3 pg (26-34); Mean Corpuscular Volume 89.1 fl (80-100); Platelet Count Result 121 k/mm3 (150-375); Red Blood Count 3.96 M/mm3 (4.6-6.20); White Blood Count 6.0 K/mm3 (4.5-10.0)
[2025-03-25] MEDS: SUCRALFATE SUSP 100 MG/ML 10 ML UDC 1000 MG PO ×4 (06:08→22:23)
[2025-03-25] MEDS: HYDROcodone/acetaminophen (*CRX) 5-325 MG TABLET 1 TAB PO (06:09)
[2025-03-25 06:27] LABS: Alanine Aminotransferase 41 U/L (6-50); Albumin Level 2.8 g/dL (3.5-5.1); Alkaline Phosphatase 74 U/L (38-126); Anion Gap 5 mmol/L (4-12); Aspartate Amino Transferase 44 U/L (17-59); Bilirubin,Total 0.2 mg/dL (0.2-1.3); Blood Urea Nitrogen 19 mg/dL (9-20); Calcium 8.1 mg/dL (8.4-10.2); Carbon Dioxide 24 mmol/L (22-30); Chloride 104 mmol/L (98-107); Estimated CRCL calculation 92 ml/min; Estimated Glomerular Filt Rate > 60; Glucose 130 mg/dL (65-110); Potassium 3.5 mmol/L (3.4-5.0); Sodium 133 mmol/L (137-145); Total Protein 5.3 g/dL (6.3-8.2)
[2025-03-25] MEDS: LACTATED RINGERS 1,000 ML 100 ML IV CONT (07:51)
[2025-03-25] MEDS: PANTOPRAZOLE 40 MG TABLET PO (08:46)
[2025-03-25] MEDS: SPIRONOLACTONE 25 MG TABLET PO (08:46)
[2025-03-25] MEDS: EMPAGLIFLOZIN 10 MG TABLET PO (08:46)
[2025-03-25] MEDS: CLOPIDOGREL BISULFATE 75 MG TABLET PO (08:46)
[2025-03-25] MEDS: CYANOCOBALAMIN 1,000 MCG TABLET 1000 MCG PO (08:46)
[2025-03-25] MEDS: LIDOCAINE 5% PATCH 1 PATCH TRANSDERM (08:47)
[2025-03-25] MEDS: ENOXAPARIN 40 MG/0.4 ML SYRINGE SUB-Q (08:47)
[2025-03-25] MEDS: FLUTICASONE PROPIONATE 0.05% NA SPR 16 GM BTL (*BKC) 2 SPRAY NASAL (08:47)
[2025-03-25] MEDS: TAMSULOSIN HCL 0.4 MG CAPSULE PO (08:47)
[2025-03-25] MEDS: INSULIN ASPART (*BKC) 100 UNITS/ML 8 UNITS SUB-Q ×3 (08:48→17:44)
[2025-03-25] MEDS: SACUBITRIL/VALSARTAN 24-26 MG TABLET 1 TAB PO ×2 (08:48→22:21)
[2025-03-25] MEDS: METOPROLOL SUCCINATE EXT REL 50 MG TABCR PO (08:48)
--- NOTE | 2025-03-25 11:42 | PCPTNOTE ---
Attempted to see patient for PT but unable to keep patient awake to participate. Patient does open eyes and respond for brief period but quickly falls asleep. RN aware.
[2025-03-25] MEDS: VANCOMYCIN 1,750 MG/NS 500 ML 1,750 MG/500 ML BAG 250 MG IVPB (12:10)
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
[2025-03-25] MEDS: INSULIN GLARGINE (*BKC) 100 UNITS/ML 35 UNITS SUB-Q (22:16)
[2025-03-25] MEDS: DIVALPROEX SODIUM ER 500 MG TAB.24H 1500 MG PO (22:19)
[2025-03-25] MEDS: ATORVASTATIN 40 MG TABLET PO (22:20)
[2025-03-26] VITALS (10 sets, daily range): BP systolic 132–137; BP diastolic 54–74; PULSE 71–88; RESP 17–19; TEMP 35.9–36.4; O2SAT 98–100
[2025-03-26] MEDS: CEFEPIME 2 GM in SODIUM CHLORIDE 0.9% IV 50 ML 100 ML IVPB ×2 (04:20→16:51)
[2025-03-26 05:45] LABS: Hematocrit 38.2 % (42.0-52.0); Hemoglobin 11.9 g/dL (14.0-18.0); Mean Corpuscular HGB Conc 31.2 g/dl (32-36); Mean Corpuscular Hemoglobin 28.1 pg (26-34); Mean Corpuscular Volume 90.1 fl (80-100); Platelet Count Result 136 k/mm3 (150-375); Red Blood Count 4.24 M/mm3 (4.6-6.20); White Blood Count 4.9 K/mm3 (4.5-10.0)
[2025-03-26] MEDS: SUCRALFATE SUSP 100 MG/ML 10 ML UDC 1000 MG PO ×4 (05:45→20:58)
[2025-03-26 06:09] LABS: Alanine Aminotransferase 39 U/L (6-50); Albumin Level 3.0 g/dL (3.5-5.1); Alkaline Phosphatase 78 U/L (38-126); Anion Gap 7 mmol/L (4-12); Aspartate Amino Transferase 31 U/L (17-59); Bilirubin,Total 0.2 mg/dL (0.2-1.3); Blood Urea Nitrogen 15 mg/dL (9-20); Calcium 8.7 mg/dL (8.4-10.2); Carbon Dioxide 24 mmol/L (22-30); Chloride 106 mmol/L (98-107); Estimated CRCL calculation 108 ml/min; Estimated Glomerular Filt Rate > 60; Glucose 151 mg/dL (65-110); Potassium 3.6 mmol/L (3.4-5.0); Sodium 137 mmol/L (137-145); Total Protein 5.7 g/dL (6.3-8.2)
[2025-03-26] MEDS: VANCOMYCIN 2,000 MG/NS 500 ML 2,000 MG/500 ML BAG 200 MG IVPB (06:41)
[2025-03-26] MEDS: LIDOCAINE 5% PATCH 1 PATCH TRANSDERM (09:38)
[2025-03-26] MEDS: ENOXAPARIN 40 MG/0.4 ML SYRINGE SUB-Q (09:38)
[2025-03-26] MEDS: SPIRONOLACTONE 25 MG TABLET PO (09:40)
[2025-03-26] MEDS: EMPAGLIFLOZIN 10 MG TABLET PO (09:41)
[2025-03-26] MEDS: TAMSULOSIN HCL 0.4 MG CAPSULE PO (09:41)
[2025-03-26] MEDS: METOPROLOL SUCCINATE EXT REL 50 MG TABCR PO (09:41)
[2025-03-26] MEDS: SACUBITRIL/VALSARTAN 24-26 MG TABLET 1 TAB PO ×2 (09:42→20:58)
[2025-03-26] MEDS: CYANOCOBALAMIN 1,000 MCG TABLET 1000 MCG PO (09:42)
[2025-03-26] MEDS: CLOPIDOGREL BISULFATE 75 MG TABLET PO (09:42)
[2025-03-26] MEDS: PANTOPRAZOLE 40 MG TABLET PO (09:42)
[2025-03-26] MEDS: FLUTICASONE PROPIONATE 0.05% NA SPR 16 GM BTL (*BKC) 2 SPRAY NASAL (09:43)
[2025-03-26] MEDS: INSULIN ASPART (*BKC) 100 UNITS/ML SUB-Q ×2 (12:08→16:57)
[2025-03-26] MEDS: INSULIN ASPART (*BKC) 100 UNITS/ML 8 UNITS SUB-Q ×2 (12:09→16:52)
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
[2025-03-26] MEDS: HYDROcodone/acetaminophen (*CRX) 5-325 MG TABLET 1 TAB PO ×2 (16:50→23:19)
[2025-03-26] MEDS: ATORVASTATIN 40 MG TABLET PO (20:57)
[2025-03-26] MEDS: DIVALPROEX SODIUM ER 500 MG TAB.24H 1500 MG PO (20:58)
[2025-03-26] MEDS: INSULIN GLARGINE (*BKC) 100 UNITS/ML 35 UNITS SUB-Q (20:59)
[2025-03-27] VITALS (7 sets, daily range): BP systolic 145–148; BP diastolic 57–62; PULSE 61–94; RESP 14–16; TEMP 36.3; O2SAT 99–100
[2025-03-27] MEDS: CEFEPIME 2 GM in SODIUM CHLORIDE 0.9% IV 50 ML 100 ML IVPB (05:16)
[2025-03-27] MEDS: SUCRALFATE SUSP 100 MG/ML 10 ML UDC 1000 MG PO ×3 (05:51→16:57)
[2025-03-27 06:02] LABS: Hematocrit 37.9 % (42.0-52.0); Hemoglobin 11.7 g/dL (14.0-18.0); Mean Corpuscular HGB Conc 30.9 g/dl (32-36); Mean Corpuscular Hemoglobin 28.2 pg (26-34); Mean Corpuscular Volume 91.3 fl (80-100); Platelet Count Result 145 k/mm3 (150-375); Red Blood Count 4.15 M/mm3 (4.6-6.20); White Blood Count 5.6 K/mm3 (4.5-10.0)
[2025-03-27 06:23] LABS: Alanine Aminotransferase 30 U/L (6-50); Albumin Level 2.9 g/dL (3.5-5.1); Alkaline Phosphatase 69 U/L (38-126); Anion Gap 6 mmol/L (4-12); Aspartate Amino Transferase 26 U/L (17-59); Bilirubin,Total 0.2 mg/dL (0.2-1.3); Blood Urea Nitrogen 11 mg/dL (9-20); Calcium 8.4 mg/dL (8.4-10.2); Carbon Dioxide 27 mmol/L (22-30); Chloride 104 mmol/L (98-107); Estimated CRCL calculation 115 ml/min; Estimated Glomerular Filt Rate > 60; Glucose 107 mg/dL (65-110); Potassium 3.4 mmol/L (3.4-5.0); Sodium 137 mmol/L (137-145); Total Protein 5.4 g/dL (6.3-8.2)
[2025-03-27] MEDS: ENOXAPARIN 40 MG/0.4 ML SYRINGE SUB-Q (08:25)
[2025-03-27] MEDS: LIDOCAINE 5% PATCH 1 PATCH TRANSDERM (08:25)
[2025-03-27] MEDS: CLOPIDOGREL BISULFATE 75 MG TABLET PO (08:26)
[2025-03-27] MEDS: METOPROLOL SUCCINATE EXT REL 50 MG TABCR PO (08:26)
[2025-03-27] MEDS: SACUBITRIL/VALSARTAN 24-26 MG TABLET 1 TAB PO (08:26)
[2025-03-27] MEDS: TAMSULOSIN HCL 0.4 MG CAPSULE PO (08:26)
[2025-03-27] MEDS: SPIRONOLACTONE 25 MG TABLET PO (08:26)
[2025-03-27] MEDS: CYANOCOBALAMIN 1,000 MCG TABLET 1000 MCG PO (08:26)
[2025-03-27] MEDS: PANTOPRAZOLE 40 MG TABLET PO (08:26)
[2025-03-27] MEDS: EMPAGLIFLOZIN 10 MG TABLET PO (08:27)
[2025-03-27] MEDS: FLUTICASONE PROPIONATE 0.05% NA SPR 16 GM BTL (*BKC) 2 SPRAY NASAL (08:28)
[2025-03-27] MEDS: INSULIN ASPART (*BKC) 100 UNITS/ML 8 UNITS SUB-Q ×3 (08:28→16:57)
[2025-03-27] MEDS: ACETAMINOPHEN 325 MG TABLET 650 MG PO (12:09)
--- NOTE | 2025-03-27 12:41 | PM.DS ---
DS: Admitting Diagnosis Discharge Date 03/27/2025 Admitting Diagnosis Fall DS: Summary Hospital Course Hospital Course: 75-year-old male medical history GERD, diabetes, bipolar disorder with behavioral disturbances. He is a very poor historian at the moment. Brought in by local police department and the story is as follows: 2 days prior to admission the patient was evicted from shelter due to assaulting a press officer. Reportedly he was intoxicated and acting aggressively. Per the to police officers present in the ER, patient was found on the ground confused and he had vomited and defecated on himself. The patient reports pain all over but it appears factitious. He sleeps comfortably prior to clinicians entering the room becomes agitated when evaluated. He does not know the month, he gives unreliable answers towards his medical history, medications, drug use. Does think he had a seizure. Blood pressure on arrival 176/63 improved to 148/67. Afebrile. WBC 13.6, hemoglobin 14.7, sodium 131, BUN 22, glucose 340, lactic acid 2.6, improving no 1.6. Troponin 0.037 and then 0.042. Urinalysis with 2+ protein, glucose, ketones. Urine drug screen positive for benzodiazepines, alcohol level within normal limits. Patient was treated for the following condition the hospital: Leucocytosis: -Initially resolved. Again elevated on 03/21/2025. -CTA chest abdomen pelvis with contrast demonstrating acute versus subacute left 8th and 9th anterolateral rib fractures. Continue pain control p.r.n.. -Mild esophagitis/gastritis. -Bladder wall thickening, repeat urinalysis demonstrating infection. -Continue cefepime and vancomycin until urine cultures return. -Blood cultures negative and urine culture pending -Leukocytosis is improving. -0 03/27: blood culture negative, urine culture shows Klebsiella pneumoniae. Patient will be discharged with amoxicillin/clavulanic acid. AMS: -Patient was found down. WBC was 13K but normal on repeat. Lactic was 2.6 that also normalized on repeat. -Possible seizure especially if he was out of his meds. -Neurology consulted. Home Keppra dose was continued. -TSH normal. B12 level low. Ammonia <9. -EEG showed abnormal record due to the presence of bihemispheric theta and delta activity without evidence of any normal activity particularly posteriorly that could be compatible with ongoing neuro degenerative process or postictal state. -He remained stable and mental status improved. He has been A&O x3. Consider confusion partially related to B12 deficiency as well. -Continue B12 supplementation We continued Seroquel and Cymbalta at his home dose. Keppra level was low at 8.7. -Discussed with neurology who felt Keppra can cause aggressive personality so Keppra stopped and changed to Depakote. On 03/20/2025 around midnight the patient fell. It was unwitnessed. CT head did not demonstrate any acute abnormalities. His glucose was 156. He was snoring and unable to be aroused afterwards, but then he was A&O x3, feeling completely normal. Suspect he had a breakthrough seizure. Later he was diaphoretic. Blood cultures drawn, lactic acid normal. Prolactin level 16.3 with this was drawn many hours after the event. Troponin elevated and Cardiology recalled. Trend troponin to peak. Neurology recalled. Seizure and fall precautions ongoing. Valproic acid level 93. Elevated troponin: -Patient with elevated troponin but flat; Trop peaked at 0.047 -Hx of CAD status post stent placement 15 years ago. Recent stress testing did not show any areas of ischemia -Echocardiogram repeated on 03/13/2025: 1. Definity contrast used to improve visualization. 2. Left ventricular systolic dysfunction with ejection fraction estimated to be 35%. 3. Akinesis of the anteroseptal segment, apex, apical anterior wall and apical inferior wall. Infarction in the distribution of the mid to distal LAD is suspect. 4. Enlarged left atrium. 5. Mild mitral regurgitation. Abdominal pain: -CT AP showed esophagitis/gastritis with duodenal mucosal hyperemia -GI consulted -Abd US showing no acute findings. LFTs and Lipase normal. -MagCitrate given with good results. -Miralax started. However then developed loose stool so MiraLax was discontinued. -Was on IV Zosyn but now stopped. -Abd pain off and on. -Continue Protonix and sucralfate -03/22/2020.: Patient has not had bowel movement in 2 days, he has abdominal distension. He would like to restart laxatives. Start MiraLax q.a.m.. -0 03/25: Medication review indicates MiraLax has been discontinued Thyroid mass: A 5.4cm mostly solid left thyroid mas noted and confirmed by thyroid US. TSH normal. He states he had a thyroid bx a few months ago at [facility] with benign pathology. 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 Cardiomyopathy: -Patient with known cardiomyopathy. Echo showing EF 35%, akinesis noted related to infarct in the mid and distal LAD distribution and mild valve disease. -Stable and not in acute CHF. -Continue GDMT with Entresto, Spironolactone, Toprol XL; Farxiga on hold and will resume at discharge (started on Empagliflozin here) -Cardiology following, advise outpatient evaluation for ICD. ISIS: Resolved On the day of discharge, the patient was seen and examined. Vital signs were stable. Physical exam were stable and labs were reviewed at length. Discharge instructions, medications, and follow-up appointments were discussed with the patient at length and all day questions were answered. ER warnings were given. Status at Discharge Cognitive/behavioral status at discharge: Stable Time Spent with Patient Time attestation: Total time spent providing and/or coordinating discharge services: 45 minutes Exam Narrative: Gen - NARD Chest - CTA bilaterally, nml RR CV - RRR S1/S2 Abd - Soft, no guarding, nontender Ext - No pedal edema Psych - Nml mood. Skin - Warm and dry Const: General: comfortable and no acute distress Other: A&O x3 HENMT: Mouth: Yes moist mucous membranes Eyes: Pupils: Equal, round and reactive pupils present Neck: Neck: supple Resp: Effort & Inspection: normal respiratory effort Auscultation: clear to auscultation bilaterally Other: Unable to auscultate, the patient breathes very heavily while grimacing Cardio: Rate: regular rate Rhythm: regular rhythm GI: Inspection: distended : General: Yes bladder normal to palpation Skin: Other: No sores, no lesions, no drainage. Neuro: Cranial nerves: Yes Equal, round and reactive pupils present Motor exam (neuro): 5/5 motor strength present throughout Extrem: General: no edema DS: Data Data Completed and Pending Labs on day of discharge: Labs from last 24 hours 03/27/25 03/27/25 03/27/25 11:49 07:57 04:56 WBC 5.6 RBC 4.15 L Hgb 11.7 L Hct 37.9 L MCV 91.3 MCH 28.2 MCHC 30.9 L RDW 15.0 H Plt Count 145 L MPV 11.4 H Sodium 137 Potassium 3.4 Chloride 104 Carbon Dioxide 27 Anion Gap 6 BUN 11 Creatinine 0.65 L Estim Creat Clear Calc 115 Estimated GFR > 60 Glucose 107 POC Capillary Glucose 164 H 128 H Calcium 8.4 Total Bilirubin 0.2 AST 26 ALT 30 Alkaline Phosphatase 69 Total Protein 5.4 L Albumin 2.9 L 03/27/25 03/26/25 03/26/25 04:18 20:12 16:56 WBC RBC Hgb Hct MCV MCH MCHC RDW Plt Count MPV Sodium Potassium Chloride Carbon Dioxide Anion Gap BUN Creatinine Estim Creat Clear Calc Estimated GFR Glucose POC Capillary Glucose 114 H 162 H 256 H Calcium Total Bilirubin AST ALT Alkaline Phosphatase Total Protein Albumin Preliminary micro results at discharge 03/22/25 16:23 Blood Culture - Preliminary Blood 03/22/25 16:24 Blood Culture - Preliminary Blood Discharge Plan Discharge Attending physician on discharge: Timbo Weir Consulting providers: Maira Dupont; Marcella Dove; Zaina Banuelos Discharging Clinician: Timbo Weir Anticipated Discharge Date/Time: 03/27/25 12:48 Patient Disposition: SNF Activity: as tolerated Diet: diabetic Discharge Instructions: Please complete the course of amoxicillin/clavulanic acid for 2 days Check blood pressure 1 to 2 times a day. Record and bring into your doctor for review. Call your doctor if your blood pressure is greater than 180/110 or less than 90/45. Walk with cane or other assist device. Take precautions to avoid falls. Rise slowly from a lying or sitting position. Pause before standing or walking. Contact your doctor or call 911 and come to the Emergency Room if you have any type of trauma, lightheadedness with standing or other worrisome symptoms. Avoid NSAIDs (ibuprofen, naproxen, Aleve). Tylenol is safe to take. Follow-up with your primary care provider in 1-2 weeks. Please call for appointment. Follow-up with Cardiology in 2-4 weeks. Please call for an appointment. Thank you for using [facility] for your health care needs. Patient Instructions: Antibiotic Form, Heart Failure (GEN), High Troponin Levels (GEN) Patient Language: Sinhala Stand Alone Forms: General Discharge Information Follow-up/Referrals: Green,Cory Jones MD [Primary Care Provider] - Genaro Pacheco MD [Physician] - Discharge Medications: New insulin aspart U-100 [Novolog U-100 Insulin aspart] 100 unit/mL Solution 4 - 8 unit subcut TIDWM Qty: 10 0RF Protocol: Insulin Corrective High-Dose Condition: glucose < 70 mg/dl Dose/Route: Follow hypoglycemia order Condition: glucose 70-200 mg/dl Dose/Route: No additional insulin Condition: glucose 201-250 mg/dl Dose/Route: 4 units sub-Q Condition: glucose 251-300 mg/dl Dose/Route: 5 units sub-Q Condition: glucose 301-350 mg/dl Dose/Route: 6 units sub-Q Condition: glucose 351-400 mg/dl Dose/Route: 8 units sub-Q Condition: glucose > 400 mg/dl Dose/Route: Call MD Protocol Text: *No Correction Dose at Bedtime* divalproex [Depakote ER] 500 mg Tablet Extended Release 24 Hr 1,500 mg PO HS Qty: 30 0RF insulin aspart U-100 [Novolog U-100 Insulin aspart] 100 unit/mL Solution 8 unit subcut TIDWM Qty: 10 0RF insulin glargine [Lantus U-100 Insulin] 100 unit/mL Solution 35 unit subcut HS Qty: 10 0RF polyethylene glycol 3350 [Miralax] 17 gram Powder In Packet 17 g PO QAM Qty: 30 0RF pantoprazole 40 mg Tablet,Delayed Release (Dr/Ec) 40 mg PO DAILY Qty: 30 0RF sucralfate 100 mg/mL Suspension 1,000 mg PO ACHS Qty: 30 0RF (DME) blood-glucose meter [OneTouch Verio Flex meter] Misc Qty: 1 0RF Rx Instructions: May substitute to in-stock meter and/or covered by insurance. Use As Directed (DME) OneTouch Verio test strips Strip Qty: 1 0RF Rx Instructions: May substitute to in-stock and/or covered by insurance strips. Use As Directed (DME) pen needle, diabetic 32 gauge x 5/32 Needle Qty: 1 0RF Rx Instructions: As Directed (DME) lancets [OneTouch Delica Plus Lancet] 30 gauge misc Qty: 1 0RF Rx Instructions: May substitute to in-stock and/or covered by insurance lancets. Use As Directed (DME) insulin syringe,safety needle 0.5 mL 31 gauge x 5/16 Syringe Qty: 1 0RF Rx Instructions: As Directed amoxicillin-pot clavulanate 875-125 mg tablet 1 tablet PO Q12H Qty: 4 0RF Rx Instructions: Please complete course for 2 days Continued albuterol sulfate 90 mcg/actuation HFA aerosol inhaler 2 puff INHALATION Q4H PRN (Reason: shortness of breath or wheezing) atorvastatin 40 mg tablet 40 mg PO QPM quetiapine [Seroquel] 200 mg tablet 200 mg PO HS duloxetine 30 mg capsule,delayed release(DR/EC) 30 mg PO HS duloxetine 30 mg capsule,delayed release(DR/EC) 60 mg PO DAILY metoprolol succinate 25 mg capsule,sprinkle,ER 24hr 50 mg PO DAILY omeprazole 20 mg capsule,delayed release(DR/EC) 20 mg PO DAILY spironolactone 25 mg tablet 25 mg PO DAILY dapagliflozin propanediol [Farxiga] 10 mg tablet 10 mg PO DAILY sacubitril-valsartan [Entresto] 24-26 mg tablet 1 tablet PO BID docusate sodium 100 mg capsule 100 mg PO DAILY PRN (Reason: constipation) Phospha 250 Neutral 250 mg tablet 1 tablet PO BID ergocalciferol (vitamin D2) [Vitamin D2] 1,250 mcg (50,000 unit) capsule 50,000 unit PO MONTHLY fluticasone propionate 50 mcg/actuation spray,suspension 2 spray intranasal DAILY Qty: 16 1RF clopidogrel 75 mg tablet 75 mg PO DAILY Qty: 30 0RF gabapentin 600 mg tablet 600 mg PO TID Qty: 90 0RF tamsulosin 0.4 mg capsule 0.4 mg PO DAILY Qty: 30 0RF Held alprazolam 0.5 mg tablet 0.5 mg PO Q8H Hold Instructions: Resume on 04/17/25. Please discuss with Psychiatry /PCp before continuing Discontinued levetiracetam [Keppra] 750 mg tablet 750 mg PO BID glimepiride [Amaryl] 1 mg tablet 1 mg PO DAILY@0800 Qty: 90 1RF Date of admission: 03/11/25 09:25 Primary Care Provider: FlakitoCory Admitting Provider: Laura Barrera Attending physician on admission: Laura Barrera Condition: Stable
--- NOTE | 2025-03-27 17:02 | P.PNNEUR_ITS ---
Progress Note: A&P Assessment and Plan (1) Dementia of Alzheimer's type with behavioral disturbance: Code(s): G30.9 - Alzheimer's disease, unspecified; F02.818 - Dementia in other diseases classified elsewhere, unspecified severity, with other behavioral disturbance Status: Acute (2) Peripheral neuropathy: Code(s): G62.9 - Polyneuropathy, unspecified Status: Acute (3) Seizure disorder: Code(s): G40.909 - Epilepsy, unspecified, not intractable, without status epilepticus Status: Acute Plan With regard to the seizures and we have switched him from Keppra to Depakote in view of the behavior problems and aggression that can occur in certain patients with the Keppra. I would suggest continue the Depakote 1500 mg a day and add lacosamide 50 mg twice a day. The dose will need to increase at weekly intervals to a target dose of 200 mg twice a day. If he has any further seizure-like spells which are re-evaluate him. Subjective Date/time seen: 03/27/25 17:02 Interval history: The patient is wide awake and alert. He has not had any further seizure-like spells. The last time and he was found on the floor he had some injury to the ribs and he still feels sore on the left side. He was noted to have 8 and 9th rib fractures age of which could not be ascertained. He is on Depakote 1500 mg a day and random level was 93 but that was within a few hours after he has taken the evening does since he had a spell around midnight. Review of Systems Review of Systems: All systems reviewed & are unremarkable except as noted in HPI and below Exam Narrative: fully conscious alert oriented to self time place and person. Pleasant and cooperative. Exam showed cranial nerves and motor system within normal range. No involuntary movements are seen. Objective Data Vital Signs Vital Signs: Vital Signs - 24 hr 03/26/25 20:00 03/26/25 20:05 03/26/25 21:29 Temperature 97.6 F Pulse Rate 72 72 Respiratory Rate 19 Blood Pressure 137/69 Pulse Oximetry 98 Oxygen Delivery Room Air 03/27/25 00:10 03/27/25 04:00 03/27/25 05:39 Temperature 97.4 F L Pulse Rate 72 74 61 Respiratory Rate 14 Blood Pressure 145/62 H Pulse Oximetry 99 Oxygen Delivery 03/27/25 08:00 03/27/25 08:00 03/27/25 08:26 Temperature Pulse Rate 63 94 Respiratory Rate Blood Pressure Pulse Oximetry 99 Oxygen Delivery Room Air 03/27/25 12:00 03/27/25 14:00 Temperature 97.3 F L Pulse Rate 75 80 Respiratory Rate 16 Blood Pressure 148/57 H Pulse Oximetry 100 Oxygen Delivery Intake/Output Intake/Output: Intake & Output 03/24/25 03/25/25 03/26/25 03/27/25 23:59 23:59 23:59 23:59 Intake Total 3557.7 3952 3090 1267 Output Total 1900 3750 3960 3480 Balance 1657.7 514 -391 -5339 Meds/Results Medications: Active Medications Generic Name Dose Route Start Last Admin Trade Name Freq PRN Reason Stop Dose Admin Acetaminophen 650 mg 03/10/25 02:10 03/27/25 12:09 Acetaminophen 325 Mg Tablet PO 650 mg Q4H PRN Administration Mild Pain (1-3) or Fever Hydrocodone Bitart/Acetaminophen 1 tab 03/21/25 21:00 03/26/25 23:19 Hydrocodone/Acetaminophen (*Crx) 5-325 Mg Tablet PO 1 tab Q6H PRN Administration Pain Rated 4-6 Albuterol 2 puff 03/10/25 03:51 Albuterol Sulfate (*Sp) Aerosol 1 Puff INHALATION Q4H PRN shortness of breath or wheezing Amlodipine Besylate 5 mg 03/16/25 16:50 03/27/25 08:26 Amlodipine Besylate 5 Mg Tablet PO 5 mg DAILY SCOUT Administration Amoxicillin/Clavulanate Potassium 1 tablet 03/27/25 12:00 03/27/25 12:01 Amoxicillin/Clavulanate K 875-125 Mg Tab PO 03/28/25 21:01 1 tablet Q12HR SCOUT Administration Atorvastatin Calcium 40 mg 03/10/25 21:00 03/26/25 20:57 Atorvastatin 40 Mg Tablet PO 40 mg HS SCOUT Administration Clopidogrel Bisulfate 75 mg 03/10/25 09:00 03/27/25 08:26 Clopidogrel Bisulfate 75 Mg Tablet PO 75 mg DAILY SCOUT Administration Cyanocobalamin 1,000 mcg 03/13/25 09:00 03/27/25 08:26 Cyanocobalamin 1,000 Mcg Tablet PO 1,000 mcg QAM SCOUT Administration Dextrose 12.5 gm 03/12/25 18:46 Dextrose 50% 25 Gm/50 Ml Syringe IV PUSH PRN PRN Hypoglycemia Protocol Divalproex Sodium 1,500 mg 03/17/25 21:00 03/26/25 20:58 Divalproex Sodium Er 500 Mg Tab.24h PO 1,500 mg HS SCOUT Administration Docusate Sodium 100 mg 03/10/25 03:51 Docusate Sodium 100 Mg Capsule PO DAILY PRN constipation Duloxetine HCl 30 mg 03/10/25 03:55 03/26/25 20:58 Duloxetine Hcl 30 Mg Capsule. PO 30 mg HS SCOUT Administration Duloxetine HCl 60 mg 03/10/25 09:00 03/27/25 08:26 Duloxetine Hcl 30 Mg Capsule. PO 60 mg DAILY SCOUT Administration Empagliflozin 10 mg 03/17/25 09:00 03/27/25 08:27 Empagliflozin 10 Mg Tablet PO 10 mg DAILY SCOUT Administration Enoxaparin Sodium 40 mg 03/11/25 09:00 03/27/25 08:25 Enoxaparin 40 Mg/0.4 Ml Syringe SUB-Q 40 mg DAILY SCOUT Administration Fluticasone Propionate 2 spray 03/10/25 09:00 03/27/25 08:28 Fluticasone Propionate 0.05% Na Spr 16 Gm Btl (*Bkc) NASAL 2 spray DAILY SCOUT Administration Glucagon 1 mg 03/12/25 18:46 Glucagon For Inj 1 Mg Vial IM PRN PRN Hypoglycemia Protocol Glucose 15 gm 03/12/25 18:46 Glucose Oral Gel 15 Gm Of Glucse In 37.5 Gm Tube PO PRN PRN Hypoglycemia Protocol Dextrose 1,000 mls @ 100 mls/hr 03/12/25 18:46 Dextrose 5% 1,000 Ml IVPB PRN PRN Hypoglycemia Protocol Insulin Aspart 4 - 8 units 03/13/25 08:00 03/27/25 16:58 Insulin Aspart (*Bkc) 100 Units/Ml SUB-Q Not Given TIDWM [facility] Protocol Insulin Aspart 8 units 03/18/25 12:00 03/27/25 16:57 Insulin Aspart (*Bkc) 100 Units/Ml SUB-Q 8 units TIDWM SCOUT Administration Insulin Glargine 35 units 03/16/25 21:00 03/26/25 20:59 Insulin Glargine (*Bkc) 100 Units/Ml SUB-Q 35 units HS SCOUT Administration Lacosamide 50 mg 03/27/25 21:00 Lacosamide (*Crx) 50 Mg Tablet PO Q12HR SCOUT Lidocaine 1 patch 03/22/25 09:00 03/27/25 08:25 Lidocaine 5% Patch TRANSDERM 1 patch DAILY SCOUT Administration Metoprolol Succinate 50 mg 03/10/25 09:00 03/27/25 08:26 Metoprolol Succinate Ext Rel 50 Mg Tabcr PO 50 mg DAILY SCOUT Administration Ondansetron HCl 4 mg 03/10/25 06:19 03/13/25 21:02 Ondansetron Inj 4 Mg/2 Ml Vial IV PUSH 4 mg Q6H PRN Administration Nausea And Vomiting Pantoprazole Sodium 40 mg 03/15/25 09:00 03/27/25 08:26 Pantoprazole 40 Mg Tablet PO 40 mg DAILY SCOUT Administration Polyethylene Glycol 17 gm 03/22/25 09:35 03/27/25 08:25 Polyethylene Glycol 3350 17 Gm Powd.Pack PO 17 gm QAM SCOUT Administration Quetiapine Fumarate 200 mg 03/10/25 21:00 03/26/25 20:58 Quetiapine Fumarate 100 Mg Tablet PO 200 mg HS SCOUT Administration Sacubitril/Valsartan 1 tab 03/10/25 09:00 03/27/25 08:26 Sacubitril/Valsartan 24-26 Mg Tablet PO 1 tab Q12HR SCOUT Administration Spironolactone 25 mg 03/10/25 09:00 03/27/25 08:26 Spironolactone 25 Mg Tablet PO 25 mg DAILY SCOUT Administration Sucralfate 1,000 mg 03/10/25 11:30 03/27/25 16:57 Sucralfate Susp 100 Mg/Ml 10 Ml Udc PO 1,000 mg ACHS SCOUT Administration Tamsulosin HCl 0.4 mg 03/10/25 09:00 03/27/25 08:26 Tamsulosin Hcl 0.4 Mg Capsule PO 0.4 mg DAILY SCOUT Administration Radiology Results: ITS Impressions Head/Neck CTA 03/09/25 20:31 IMPRESSION: No acute intracranial process. No large vessel intracranial occlusion, high-grade intracranial stenosis, or aneurysm. No carotid or vertebral artery occlusion, dissection, or significant stenosis. 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 5.4 mostly solid-appearing left thyroid mass, recommend nonemergent outpatient thyroid ultrasound for further evaluation. Abdomen/Pelvis CT 03/09/25 20:59 IMPRESSION: Mild esophagitis/gastritis. Contracted gallbladder which limits evaluation. Gallbladder mucosal hyperemia may reflect a degree of inflammatory change. Duodenal mucosal hyperemia, may represent mild inflammatory change. Indeterminate density left lower pole renal lesion, stable in size and morphology since the prior examination in 2020, presumably a hemorrhagic or proteinaceous cyst. Urinary bladder distention with wall thickening. May be secondary to outlet obstruction from prostatomegaly. Correlate with urinalysis and symptoms of urinary retention. Thyroid Ultrasound 03/10/25 11:13 IMPRESSION: 1. Solid left thyroid mass which is suspicious. Ultrasound-guided fine-needle aspiration biopsy recommended. Abdomen Ultrasound 03/10/25 19:34 IMPRESSION: Unremarkable sonographic evaluation of the right upper quadrant, as detailed above. Orbits/Face/Neck MRI 03/12/25 16:43 IMPRESSION: 1. 2.8 x 2.9 x 1.3 cm homogeneously fatty mass without enhancing soft tissue component in the left parotid gland most consistent with a lipoma. Head CT 03/20/25 05:31 Impression: No intracranial hemorrhage, mass, or acute infarct. Atrophy and chronic white matter changes, as above. Abdomen X-Ray 03/21/25 09:44 IMPRESSION: 1: No acute abdominal abnormality identified. Chest X-Ray 03/22/25 11:12 IMPRESSION: 1. Decreasing opacities at the left lower lung zone consistent with improving atelectasis or pneumonia Chest/Abdomen/Pelvis CT 03/23/25 15:33 IMPRESSION: Acute versus subacute left eighth and ninth anterolateral rib fractures. Mild esophagitis/gastritis. Bladder wall thickening, may be secondary to cystitis or chronic obstruction from prostatomegaly. Labs Labs: Laboratory Results - last 24 hr 03/26/25 03/27/25 03/27/25 20:12 04:18 04:56 WBC 5.6 RBC 4.15 L Hgb 11.7 L Hct 37.9 L MCV 91.3 MCH 28.2 MCHC 30.9 L RDW 15.0 H Plt Count 145 L MPV 11.4 H Sodium 137 Potassium 3.4 Chloride 104 Carbon Dioxide 27 Anion Gap 6 BUN 11 Creatinine 0.65 L Estim Creat Clear Calc 115 Estimated GFR > 60 Glucose 107 POC Capillary Glucose 162 H 114 H Calcium 8.4 Total Bilirubin 0.2 AST 26 ALT 30 Alkaline Phosphatase 69 Total Protein 5.4 L Albumin 2.9 L 03/27/25 03/27/25 03/27/25 07:57 11:49 16:43 WBC RBC Hgb Hct MCV MCH MCHC RDW Plt Count MPV Sodium Potassium Chloride Carbon Dioxide Anion Gap BUN Creatinine Estim Creat Clear Calc Estimated GFR Glucose POC Capillary Glucose 128 H 164 H 142 H Calcium Total Bilirubin AST ALT Alkaline Phosphatase Total Protein Albumin
[2025-04-11 10:08] LABS: Valproic Acid (Depakote),T 45 ug/mL (50-100)
== END 2025-03-27 18:08 | DRG 948 ==
LOC: ANHED 03-10 00:34 → ANHIMU 03-10 00:44 → ANH3MEDSUR 03-11 13:28
PROVIDERS: Internal Medicine; Nurse Practitioner; Psychiatry & Neurology Neurology; Admitting Provider General Practice; Emergency Provider Emergency Medicine; PCP Internal Medicine; Visit Provider General Practice
DX: R41.82 Altered mental status, unspecified (principal); E87.1 Hypo-osmolality and hyponatremia; I42.9 Cardiomyopathy, unspecified; E87.20 Acidosis, unspecified; N17.9 Acute kidney failure, unspecified; F02.811 Dementia in other diseases classified elsewhere, unspecified severity, with agitation; S22.41XA Multiple fractures of ribs, right side, initial encounter for closed fracture; T42.6X5A Adverse effect of other antiepileptic and sedative-hypnotic drugs, initial encounter; E53.8 Deficiency of other specified B group vitamins; G40.909 Epilepsy, unspecified, not intractable, without status epilepticus; F60.3 Borderline personality disorder; F91.9 Conduct disorder, unspecified; I25.10 Atherosclerotic heart disease of native coronary artery without angina pectoris; I10 Essential (primary) hypertension; D69.6 Thrombocytopenia, unspecified; D72.829 Elevated white blood cell count, unspecified; E11.65 Type 2 diabetes mellitus with hyperglycemia; E11.40 Type 2 diabetes mellitus with diabetic neuropathy, unspecified; E78.5 Hyperlipidemia, unspecified; E07.89 Other specified disorders of thyroid; J45.909 Unspecified asthma, uncomplicated; Z20.822 Contact with and (suspected) exposure to COVID-19; K21.9 Gastro-esophageal reflux disease without esophagitis; K11.8 Other diseases of salivary glands; K58.9 Irritable bowel syndrome, unspecified; K29.90 Gastroduodenitis, unspecified, without bleeding; K20.90 Esophagitis, unspecified without bleeding; N40.0 Benign prostatic hyperplasia without lower urinary tract symptoms; G30.9 Alzheimer's disease, unspecified; R79.89 Other specified abnormal findings of blood chemistry; M19.90 Unspecified osteoarthritis, unspecified site; G47.33 Obstructive sleep apnea (adult) (pediatric); F41.9 Anxiety disorder, unspecified; F25.0 Schizoaffective disorder, bipolar type; Z95.5 Presence of coronary angioplasty implant and graft; Z91.199 Patient's noncompliance with other medical treatment and regimen due to unspecified reason; Z87.891 Personal history of nicotine dependence; Z99.3 Dependence on wheelchair
CPT/HCPCS: 36415; 36600; 70450; 70496; 70498; 70543; 71045; 71260; 74018; 74177; 74220; 76536; 76705; 80048; 80053; 80143; 80164; 80165; 80177; 80179; 80202; 80307; 81001; 81003; 82077; 82140; 82436; 82550; 82565; 82570; 82607; 82805; 82948; 83036; 83605; 83690; 83735; 84145; 84146; 84300; 84443; 84484; 85018; 85025; 85027; 85049; 85055; 87040; 87086; 87637; 87641; 93005; 95816; 96361; 96365; 96366; 96372; 96374; 96375; 96376; 97110; 97161; 97162; 97165; 97166; 97530; 97535; 99285; A9270; A9577; C8929; G0378; J0692; J1650; J1815; J1953; J2270; J2405; J2470; J2543; J3373; J3420; J3475; J3480; J7040; J7120; Q9957; Q9967